=== PATIENT | female | born 1950 | race Caucasian/White ===

== ENCOUNTER 2017-07-02 16:47 | Emergency (ER) | payer MEDICARE ==
[2017-07-02] MEDS ORDERED: MOTRIN 600 MG PO ONE (17:19)
--- NOTE | 2017-07-02 17:30 | ERPHSYRPT ---
- History of Present Illness Time Seen by Provider: 07/02/17 17:04 Source: patient, family Patient Subjective Stated Complaint: Pt states "For the past week my leg has been getting worse and worse. It really hurts to stand and walk on it." Triage Nursing Assessment: Pt alert and oriented X 3, skin pwd able to stand with assistance, pt rt leg is larger than the left, pt has a crippled left leg. CSM X 4, pt able to speak in full setences. Physician History: CC: right leg pain Hx; 66 y/o patient of Dr Deneen Fry. She has pain in right leg for 2 weeks. Was worse with walking today so came to ER. No fever, chills, back pain, redness , rash. No injury. She has hx of crippled left leg. No chest pain. Hx of asthma. Lower Extremities Pain: leg: right Allergies/Adverse Reactions: acetaminophen [From Darvocet-N] Allergy (Mild, Verified 07/02/17 17:09) propoxyphene [From Darvocet-N] Allergy (Mild, Verified 07/02/17 17:09) sucralfate [From Carafate] Allergy (Mild, Verified 07/02/17 17:09) Home Medications: Alprazolam [Xanax 0.25 mg] 0.25 mg PO BID 07/02/17 [History] Aspirin 81 mg PO DAILY 07/02/17 [History] Dicyclomine HCl 10 mg PO TID 07/02/17 [History] Famotidine 40 mg PO BID 07/02/17 [History] Fenofibrate 40 mg PO DAILY 07/02/17 [History] Furosemide 20 mg [Lasix 20 mg] 20 mg PO DAILY 07/02/17 [History] Levomilnacipran HCl [Fetzima] 80 mg PO DAILY 07/02/17 [History] Metoclopramide HCl 10 mg [Reglan 10 MG] 10 mg PO BID 07/02/17 [History] Nebivolol HCl [Bystolic] 10 mg PO BID 07/02/17 [History] Piroxicam 20 mg PO DAILY 07/02/17 [History] Potassium Chloride 10 Meq Tab* [Klor Con 10 MEQ] 10 meq PO DAILY 07/02/17 [ History] Rosuvastatin Calcium 5 mg PO HS 07/02/17 [History] Vilazodone Hydrochloride [Viibryd] 40 mg PO DAILY 07/02/17 [History] Hx Tetanus, Diphtheria Vaccination/Date Given: Yes Hx Influenza Vaccination/Date Given: No Hx Pneumococcal Vaccination/Date Given: No Immunizations Up to Date: Yes - Review of Systems Constitutional: No Fever, No Chills Eyes: No Symptoms Ears, Nose, & Throat: No Symptoms Respiratory: No Cough, No Dyspnea Cardiac: No Chest Pain Abdominal/Gastrointestinal: No Abdominal Pain Musculoskeletal: No Back Pain, No Neck Pain, No Injury Skin: No Cellulitis, No Rash Neurological: No Focal Weakness All Other Systems: Reviewed and Negative - Past Medical History Pertinent Past Medical History: Yes Neurological History: No Pertinent History ENT History: No Pertinent History Cardiac History: Angina Respiratory History: COPD Endocrine Medical History: No Pertinent History Musculoskeletal History: Arthritis, Other GI Medical History: GERD History: No Pertinent History Psycho-Social History: Anxiety, Depression Female Reproductive Disorders: No Pertinent History Other Medical History: pt left leg partially crippled - Past Surgical History Past Surgical History: Yes Neuro Surgical History: No Pertinent History Cardiac: No Pertinent History Respiratory: No Pertinent History Gastrointestinal: Cholecystectomy Genitourinary: No Pertinent History Musculoskeletal: No Pertinent History Female Surgical History: No Pertinent History, Tubal Ligation Other Surgical History: back surgery - Social History Smoking Status: Current some day smoker How long have you smoked: years Exposure to second hand smoke: Yes Drug Use: none Patient Lives Alone: No - Female History Hx Last Menstrual Period: menopause - Nursing Vital Signs Nursing Vital Signs: Initial Vital Signs Temperature 98.1 F 07/02/17 16:56 Pulse Rate 68 07/02/17 16:56 Respiratory Rate 18 07/02/17 16:56 Blood Pressure 90/36 07/02/17 16:56 O2 Sat by Pulse Oximetry 94 L 07/02/17 16:56 Pain Scale Pain Intensity [Right Calf] 8 Pain Intensity 8 - Physical Exam General Appearance: alert, obese Neck Exam: normal inspection, non-tender, supple Cardiovascular/Respiratory Exam: normal breath sounds, regular rate/rhythm Gastrointestinal/Abdominal Exam: non-tender, soft Neuro/Tendon Exam: normal sensation, normal motor functions Mental Status Exam: alert, oriented x 3, cooperative Skin Exam: warm, dry, other (no redness), No rash SpO2 Interpretation: normal SpO2: 94 Oxygen Delivery: Room Air Comments: Diffuse tender right leg. Pulses good in DP and PT. No redness or rash. Some fullness anterior leg below knee. ROM intact. - Course Nursing assessment & vital signs reviewed: Yes - Radiology Exams right leg X-ray Interpretation: Reviewed by me (TRUPTI, no fx) - Radiology Ultrasound Exam right leg Ultrasound: Other (no DVT per tech) Ordered Tests: Active Orders 24 hr Category Date Time Status FEMUR Stat Exams 07/02/17 17:19 Taken KNEE (1 OR 2 VIEW) Stat Exams 07/02/17 17:19 Taken LOWER LEG Stat Exams 07/02/17 17:19 Taken VENOUS UNILAT/LIMITED EXTREMIT [US] Stat Exams 07/02/17 17:21 Taken Medication Summary Discontinued Medications Generic Name Dose Route Start Last Admin Trade Name Freq PRN Reason Stop Dose Admin Ibuprofen 600 mg 07/02/17 17:19 07/02/17 17:42 Motrin 600 Mg PO 07/02/17 17:20 600 mg STAT ONE Administration Ibuprofen Confirm 07/02/17 17:41 Motrin 600 Mg Administered 07/02/17 17:42 Dose 600 mg .ROUTE .STK-MED ONE Ibuprofen Confirm 07/02/17 17:50 Motrin 600 Mg Administered 07/02/17 17:51 Dose 600 mg .ROUTE .STK-MED ONE - Progress Progress Note: 07/02/17 19:08 Still some pain. No injury. Rx motrin/norco. Will get walker. Will follow up with Dr Deneen Fyr. Counseled pt/family regarding: diagnosis, need for follow-up, rad results - Departure Time of Disposition: 19:09 Departure Disposition: Home Clinical Impression: Right leg pain Condition: Stable Critical Care Time: No Referrals: MALINI FRY [Primary Care Provider] - Instructions: Leg Pain, Choose and Use a Walker Additional Instructions: Rx for a walker Rx norco for pain- no driving or operating machinery Rx ibuprofen Follow up Thursday with Dr Deneen Fry Prescriptions: Hydrocodone Bit/Acetaminophen [[place] 5-325 Tablet] 1 each PO Q6H PRN PRN #10 tablet PRN Reason: Pain Ibuprofen 600 mg PO Q6H PRN PRN #15 tablet PRN Reason: Pain
[2017-07-02] MEDS ORDERED: MOTRIN 600 MG ONE ×2 (17:41→17:50)
[2017-07-02 19:14] VITALS: BP 108/58; PULSE 78; O2SAT 95
--- NOTE | 2017-07-03 08:58 | XRAY ---
Indication: Right leg pain and swelling. Two-dimensional sonogram and color Doppler imaging of the major venous vessels of the right leg was performed. Comparison: March 26, 2010. Again no thrombus seen in the examined deep venous vessels of the right leg including greater saphenous vein. Veins demonstrate normal compressibility. Venous waveforms are normal with and without augmentation. Impression: Right leg again negative for DVT. Comment: Preliminary report was given.
--- NOTE | 2017-07-03 09:06 | XRAY ---
Indication: Pain. No known injury. Comparison: None 2 views of the right femur intact with mild tricompartmental knee degenerative changes and partially visualized right lower lumbar hardware. No other bony, articular, or soft tissue abnormalities.
--- NOTE | 2017-07-03 09:07 | XRAY ---
Indication: Pain. No known injury. Comparison: None 3 views of the right knee intact with mild tricompartmental knee degenerative changes greatest involving the medial compartment, small nonspecific suprapatellar effusion, and anterior knee/lower leg heterotopic ossifications. No other bony, articular, or soft tissue abnormalities.
--- NOTE | 2017-07-03 09:09 | XRAY ---
Indication: Pain. No known injury. Comparison: None 2 views of the right lower leg intact with mild tricompartmental knee degenerative changes and tiny anterior soft tissue calcified granulomas. No other bony, articular, or soft tissue abnormalities.
== END 2017-07-02 19:22 | disposition home or self-care (01) ==
LOC: ED 16:47
DX: M79.604 Pain in right leg (principal); Z87.76 Personal history of (corrected) congenital malformations of integument, limbs and musculoskeletal system
CPT/HCPCS: 73552; 73560; 73590; 93971; 99284; A9270-GY

== ENCOUNTER 2021-06-16 21:21 | Inpatient (IN) | payer MEDICARE ==
--- NOTE | 2021-06-16 21:30 | ERPHSYRPT ---
- History of Present Illness Time Seen by Provider: 06/16/21 21:30 Source: patient, EMS, old records Exam Limitations: clinical condition Physician History: This is a 70-year-old obese white female with a history of hypertension, COPD and gastroesophageal reflux disease presents with altered mental status via EMS. Patient was recently diagnosed with bronchitis per EMS report. EMS reports that the patient had relatively sudden onset of altered mental status at home. No new medications per their report. Patient presents moving all her extremities but not able to follow commands or answer questions. There is no history of any head injury. She does have a fever of 100.7 on arrival to the emergency room. Timing/Duration: today Severity: moderate Character of Deficits: other (Altered mental status) Deficits: cannot stand, cannot walk, unable to stand Baseline/Normal Cognition: alert oriented x 3 Current Cognition: alert but confused Baseline Gait: walks w/o assistance Associated Symptoms: confusion, other (Does not respond to questioning) Allergies/Adverse Reactions: acetaminophen [From Darvocet-N] Allergy (Mild, Verified 07/02/17 17:09) propoxyphene [From Darvocet-N] Allergy (Mild, Verified 07/02/17 17:09) sucralfate [From Carafate] Allergy (Mild, Verified 07/02/17 17:09) Home Medications: ALPRAZolam [Xanax 0.25 mg] 0.25 mg PO BID 07/02/17 [History] Aspirin 81 mg PO DAILY 07/02/17 [History] Dicyclomine HCl 10 mg PO TID 07/02/17 [History] Famotidine 40 mg PO BID 07/02/17 [History] Fenofibrate 40 mg PO DAILY 07/02/17 [History] Furosemide 20 mg [Lasix 20 mg] 20 mg PO DAILY 07/02/17 [History] Levomilnacipran HCl [Fetzima] 80 mg PO DAILY 07/02/17 [History] Metoclopramide HCl 10 mg [Reglan 10 MG] 10 mg PO BID 07/02/17 [History] Nebivolol HCl [Bystolic] 10 mg PO BID 07/02/17 [History] Piroxicam 20 mg PO DAILY 07/02/17 [History] Potassium Chloride 10 Meq Tab* [Klor Con 10 MEQ] 10 meq PO DAILY 07/02/17 [History] Rosuvastatin Calcium 5 mg PO HS 07/02/17 [History] Vilazodone Hydrochloride [Viibryd] 40 mg PO DAILY 07/02/17 [History] Hx Tetanus, Diphtheria Vaccination/Date Given: Yes Hx Influenza Vaccination/Date Given: No Hx Pneumococcal Vaccination/Date Given: No Travel Risk - International Travel Have you traveled outside of the country in past 3 weeks: No - Coronavirus Screening Are you exhibiting any of the following symptoms?: Yes - Review of Systems Constitutional: No Symptoms Eyes: No Symptoms Ears, Nose, & Throat: No Symptoms Respiratory: No Symptoms Cardiac: No Symptoms Abdominal/Gastrointestinal: No Symptoms Genitourinary Symptoms: No Symptoms Musculoskeletal: No Symptoms Skin: No Symptoms Neurological: Other (Altered mental status) Psychological: No Symptoms Endocrine: No Symptoms Hematologic/Lymphatic: No Symptoms Immunological/Allergic: No Symptoms All Other Systems: Reviewed and Negative - Past Medical History Pertinent Past Medical History: Yes Neurological History: No Pertinent History ENT History: No Pertinent History Cardiac History: Angina Respiratory History: COPD Endocrine Medical History: No Pertinent History Musculoskeletal History: Arthritis, Other GI Medical History: GERD History: No Pertinent History Psycho-Social History: Anxiety, Depression Female Reproductive Disorders: No Pertinent History Other Medical History: pt left leg partially crippled - Past Surgical History Past Surgical History: Yes Neuro Surgical History: No Pertinent History Cardiac: No Pertinent History Respiratory: No Pertinent History Gastrointestinal: Cholecystectomy Genitourinary: No Pertinent History Musculoskeletal: No Pertinent History Female Surgical History: No Pertinent History, Tubal Ligation Other Surgical History: back surgery - Social History Smoking Status: Current some day smoker How long have you smoked: years Exposure to second hand smoke: Yes Drug Use: none Patient Lives Alone: No - Nursing Vital Signs Nursing Vital Signs: Initial Vital Signs Temperature 100.9 F 06/16/21 21:23 Pulse Rate 79 06/16/21 21:23 Respiratory Rate 20 06/16/21 21:23 Blood Pressure 151/70 06/16/21 21:23 O2 Sat by Pulse Oximetry 98 06/16/21 21:23 Pain Scale Pain Intensity 0 - Chris Coma Scale Best Eye Response ([place]): (4) open spontaneously Best Verbal Response ([place]): (1) no verbal response Best Motor Response ([place]): (5) localizes to pain [place] Total: 10 - Physical Exam General Appearance: lethargy, obese Eye Exam: bilateral eye: normal inspection, PERRL, EOMI Ears, Nose, Throat Exam: normal ENT inspection, moist mucous membranes Neck Exam: normal inspection, non-tender, supple, full range of motion Respiratory: normal breath sounds, lungs clear, airway intact, No chest tenderness, No respiratory distress Cardiovascular: regular rate/rhythm, normal heart sounds, normal peripheral pulses Gastrointestinal: soft, normal bowel sounds, No tenderness Pelvic Exam: not done Rectal Exam: not done Back Exam: normal inspection, normal range of motion, No CVA tenderness, No vertebral tenderness Extremity Exam: normal inspection, normal range of motion, pelvis stable 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 Today's EKG shows some anterior Q waves possibly due to left ventricular hypertrophy. There are no obvious acute ischemic changes today.) Ordered Tests: Active Orders 24 hr Category Date Time Status Metal [place] STAT Care 06/16/21 21:44 Active Catheter-Winf[place] Jung STAT Care 06/16/21 21:43 Active EKG-ER Only STAT Care 06/16/21 21:43 Active IV Insertion STAT Care 06/16/21 21:43 Active NPO (ED) STAT Care 06/16/21 21:44 Active Pulse Oximetry (ED) STAT Care 06/16/21 21:43 Active CHEST 1 VIEW (PORTABLE) Stat Exams 06/16/21 21:44 Taken HEAD WITHOUT CONTRAST [CT] Stat Exams 06/16/21 21:44 Taken ABG [ARTERIAL BLOOD GASES] Stat Lab 06/17/21 00:44 Completed ACETAMINOPHEN Stat Lab 06/16/21 22:08 Completed CBC W DIFF Stat Lab 06/16/21 22:23 Completed CMP Stat Lab 06/16/21 22:23 Completed ETHYL ALCOHOL Stat Lab 06/16/21 22:08 Completed INFLUENZA A+B ANNALISE Stat Lab 06/16/21 21:45 Completed Lactic Acid Stat Lab 06/16/21 21:45 Completed Lee Screen Stat Lab 06/16/21 20:50 Completed SALICYLATE Stat Lab 06/16/21 22:08 Completed T4 (Thyroxine) Stat Lab 06/16/21 22:00 Completed TROPONIN Q3H Lab 06/16/21 23:00 Completed TROPONIN Q3H Lab 06/17/21 01:00 Completed TROPONIN Q3H Lab 06/17/21 04:00 Ordered TROPONIN Q3H Lab 06/17/21 07:00 Ordered TROPONIN Q3H Lab 06/17/21 10:00 Ordered TSH [TSH, 3RD Generation] Stat Lab 06/16/21 22:00 Completed UA W/RFX UR CULTURE Stat Lab 06/16/21 21:51 Completed Urine Triage Profile Stat Lab 06/16/21 23:24 Completed Transfer Order Routine Transfer 06/17/21 Ordered Medication Summary Generic Name Dose Route Start Last Admin Trade Name Freq PRN Reason Stop Dose Admin Sodium Chloride 1,000 mls @ 999 mls/hr 06/17/21 01:23 Sodium Chloride 0.9% 1000 Ml IV 06/17/21 02:23 .Q1H1M STA Discontinued Medications Generic Name Dose Route Start Last Admin Trade Name Freq PRN Reason Stop Dose Admin Sodium Chloride 1,000 mls @ 999 mls/hr 06/16/21 21:43 06/16/21 22:57 Sodium Chloride 0.9% 1000 Ml IV 06/16/21 22:43 Infused .Q1H1M STA Infusion Sodium Chloride Confirm 06/16/21 21:53 Sodium Chloride 0.9% 1000 Ml Administered 06/16/21 21:54 Dose 1,000 mls @ ud .ROUTE .STK-MED ONE Lorazepam 1 mg 06/16/21 22:20 06/16/21 22:22 Ativan 2 Mg/1 Ml Vial IV 06/16/21 22:21 1 mg STAT ONE Administration Lorazepam Confirm 06/16/21 22:22 Ativan 2 Mg/1 Ml Vial Administered 06/16/21 22:23 Dose 2 mg .ROUTE .STK-MED ONE Midazolam HCl 2 mg 06/16/21 23:27 06/16/21 23:55 Versed 2 Mg/2 Ml Injection IV 06/16/21 23:28 2 mg 1XONLY ONE Administration Midazolam HCl Confirm 06/16/21 23:36 Versed 5 Mg/5 Ml Administered 06/16/21 23:37 Dose 5 mg .ROUTE .STK-MED ONE Midazolam HCl 2 mg 06/17/21 00:01 06/17/21 00:18 Versed 5 Mg/5 Ml IV 06/17/21 00:02 2 mg STAT ONE Administration Midazolam HCl Confirm 06/17/21 00:01 Versed 5 Mg/5 Ml Administered 06/17/21 00:02 Dose 5 mg .ROUTE .STK-MED ONE Midazolam HCl 1 mg 06/17/21 00:25 06/17/21 00:06 Versed 5 Mg/5 Ml IV 06/17/21 00:26 1 mg STAT ONE Administration Ondansetron HCl 4 mg 06/16/21 21:43 06/16/21 21:56 Zofran 4 Mg/2 Ml Vial IV 06/16/21 21:44 4 mg STAT STA Administration Ondansetron HCl Confirm 06/16/21 21:53 Zofran 4 Mg/2 Ml Vial Administered 06/16/21 21:54 Dose 4 mg .ROUTE .STK-MED ONE Lab/Rad Data: Laboratory Result Diagrams 06/16/21 22:23 06/16/21 22:23 Laboratory Results 06/17/21 06/17/21 06/16/21 Range/Units 01:00 00:44 23:24 WBC (4.0-10.5) K/mm3 RBC (4.1-5.4) M/mm3 Hgb (12.0-16.0) gm/dl Hct (35-47) % MCV (78-100) fl MCH (26-32) pg MCHC (32-36) g/dl RDW (11.5-14.0) % Plt Count (150-450) K/mm3 MPV (7.5-11.0) fl Gran % (36.0-66.0) % Eos # (Auto) (0-0.5) Absolute Lymphs (auto) (1.0-4.6) Absolute Monos (auto) (0.0-1.3) Lymphocytes % (24.0-44.0) % Monocytes % (0.0-12.0) % Eosinophils % (0.00-5.0) % Basophils % (0.0-0.4) % Absolute Granulocytes (1.4-6.9) Basophils # (0-0.4) Puncture Site LEFT BRACHIAL pCO2 38 (35-45) mmHg pO2 78 (75-100) mmHg Base Excess -0.3 (-2.0-2.0) O2 Saturation 95.3 (94-100) g/dF ABG pH 7.41 (7.35-7.45) ABG HCO3 24.1 (22-28) ABG O2 Sat (Measured) 97.2 (95-100) % Dontrell Test NOT APPLICABLE A-a Gradient 24 a/A Ratio 0.76 Hemoglobin 12.7 Carboxyhemoglobin 1.3 (0.0-6.9) % THgb Methemoglobin 0.7 L (1.4-1.5) % Temperature 37.0 C POC O2 Flow Rate 32 % Sodium (137-145) mmol/L Potassium 3.7 (3.5-5.1) mmol/L Chloride (98-107) mmol/L Carbon Dioxide (22-30) mmol/L Anion Gap (5-15) MEQ/L BUN (7-17) mg/dL Creatinine (0.52-1.04) mg/dL Estimated GFR ML/MIN Glucose (74-106) mg/dL Lactic Acid (0.4-2.0) Calcium (8.4-10.2) mg/dL Total Bilirubin (0.2-1.3) mg/dL AST (14-36) U/L ALT (0-35) U/L Alkaline Phosphatase (38-126) U/L Ammonia (9-30) umol/L Troponin I < 0.012 (0.000-0.034) ng/mL Serum Total Protein (6.3-8.2) g/dL Albumin (3.5-5.0) g/dL Thyroxine (T4) (5.53-10.96) ug/dL TSH 3rd Generation (0.47-4.68) mIU/L Urine Color (YELLOW) Urine Appearance (CLEAR) Urine pH (5-6) Ur Specific [place] (1.005-1.025) Urine Protein (Negative) Urine Ketones (NEGATIVE) Urine Blood (0-5) Mina/ul Urine Nitrite (NEGATIVE) Urine Bilirubin (NEGATIVE) Urine Urobilinogen (0-1) mg/dL Ur Leukocyte Esterase (NEGATIVE) Urine WBC (Auto) (0-5) /HPF Urine RBC (Auto) (0-2) /HPF U Hyaline Cast (Auto) (0-2) /LPF U Epithel Cells (Auto) (FEW) /HPF Urine Bacteria (Auto) (NEGATIVE) /HPF Urine Mucus (Auto) (NEGATIVE) /HPF Urine Culture Reflexed (NO) Urine Glucose (NEGATIVE) mg/dL Salicylates (2-20) mg/dL Urine Opiates Level NEGATIVE (NEGATIVE) Ur Methadone NEGATIVE (NEGATIVE) Acetaminophen (10-30) ug/ml Urine Barbiturates NEGATIVE (NEGATIVE) Ur Phencyclidine (PCP) NEGATIVE (NEGATIVE) Urine Amphetamine NEGATIVE (NEGATIVE) U Benzodiazepine Level NEGATIVE (NEGATIVE) Urine Cocaine NEGATIVE (NEGATIVE) Urine Marijuana (THC) NEGATIVE (NEGATIVE) Ethyl Alcohol (0-10) mg/dL Monoscreen (Negative) Influenza Type A Ag (NEGATIVE) Influenza Type B Ag (NEGATIVE) Group A Strep Antibody (NEGATIVE) 06/16/21 06/16/21 06/16/21 Range/Units 23:00 22:23 22:23 WBC 8.0 (4.0-10.5) K/mm3 RBC 4.37 (4.1-5.4) M/mm3 Hgb 13.9 (12.0-16.0) gm/dl Hct 42.4 (35-47) % MCV 97.0 (78-100) fl MCH 31.8 (26-32) pg MCHC 32.8 (32-36) g/dl RDW 13.2 (11.5-14.0) % Plt Count 191 (150-450) K/mm3 MPV 10.2 (7.5-11.0) fl Gran % 83.0 H (36.0-66.0) % Eos # (Auto) 0 (0-0.5) Absolute Lymphs (auto) 0.89 L (1.0-4.6) Absolute Monos (auto) 0.47 (0.0-1.3) Lymphocytes % 11.1 L (24.0-44.0) % Monocytes % 5.8 (0.0-12.0) % Eosinophils % 0.0 (0.00-5.0) % Basophils % 0.1 (0.0-0.4) % Absolute Granulocytes 6.67 (1.4-6.9) Basophils # 0.01 (0-0.4) Puncture Site pCO2 (35-45) mmHg pO2 (75-100) mmHg Base Excess (-2.0-2.0) O2 Saturation (94-100) g/dF ABG pH (7.35-7.45) ABG HCO3 (22-28) ABG O2 Sat (Measured) (95-100) % Dontrell Test A-a Gradient a/A Ratio Hemoglobin Carboxyhemoglobin (0.0-6.9) % THgb Methemoglobin (1.4-1.5) % Temperature C POC O2 Flow Rate % Sodium 138 (137-145) mmol/L Potassium 3.8 (3.5-5.1) mmol/L Chloride 100 (98-107) mmol/L Carbon Dioxide 24 (22-30) mmol/L Anion Gap 17.3 H (5-15) MEQ/L BUN 23 H (7-17) mg/dL Creatinine 0.85 (0.52-1.04) mg/dL Estimated GFR > 60.0 ML/MIN Glucose 106 (74-106) mg/dL Lactic Acid (0.4-2.0) Calcium 8.9 (8.4-10.2) mg/dL Total Bilirubin 0.50 (0.2-1.3) mg/dL AST 40 H (14-36) U/L ALT 25 (0-35) U/L Alkaline Phosphatase 69 (38-126) U/L Ammonia (9-30) umol/L Troponin I < 0.012 (0.000-0.034) ng/mL Serum Total Protein 7.7 (6.3-8.2) g/dL Albumin 4.0 (3.5-5.0) g/dL Thyroxine (T4) (5.53-10.96) ug/dL TSH 3rd Generation (0.47-4.68) mIU/L Urine Color (YELLOW) Urine Appearance (CLEAR) Urine pH (5-6) Ur Specific [place] (1.005-1.025) Urine Protein (Negative) Urine Ketones (NEGATIVE) Urine Blood (0-5) Mina/ul Urine Nitrite (NEGATIVE) Urine Bilirubin (NEGATIVE) Urine Urobilinogen (0-1) mg/dL Ur Leukocyte Esterase (NEGATIVE) Urine WBC (Auto) (0-5) /HPF Urine RBC (Auto) (0-2) /HPF U Hyaline Cast (Auto) (0-2) /LPF U Epithel Cells (Auto) (FEW) /HPF Urine Bacteria (Auto) (NEGATIVE) /HPF Urine Mucus (Auto) (NEGATIVE) /HPF Urine Culture Reflexed (NO) Urine Glucose (NEGATIVE) mg/dL Salicylates (2-20) mg/dL Urine Opiates Level (NEGATIVE) Ur Methadone (NEGATIVE) Acetaminophen (10-30) ug/ml Urine Barbiturates (NEGATIVE) Ur Phencyclidine (PCP) (NEGATIVE) Urine Amphetamine (NEGATIVE) U Benzodiazepine Level (NEGATIVE) Urine Cocaine (NEGATIVE) Urine Marijuana (THC) (NEGATIVE) Ethyl Alcohol (0-10) mg/dL Monoscreen (Negative) Influenza Type A Ag (NEGATIVE) Influenza Type B Ag (NEGATIVE) Group A Strep Antibody (NEGATIVE) 06/16/21 06/16/21 06/16/21 Range/Units 22:08 22:00 22:00 WBC (4.0-10.5) K/mm3 RBC (4.1-5.4) M/mm3 Hgb (12.0-16.0) gm/dl Hct (35-47) % MCV (78-100) fl MCH (26-32) pg MCHC (32-36) g/dl RDW (11.5-14.0) % Plt Count (150-450) K/mm3 MPV (7.5-11.0) fl Gran % (36.0-66.0) % Eos # (Auto) (0-0.5) Absolute Lymphs (auto) (1.0-4.6) Absolute Monos (auto) (0.0-1.3) Lymphocytes % (24.0-44.0) % Monocytes % (0.0-12.0) % Eosinophils % (0.00-5.0) % Basophils % (0.0-0.4) % Absolute Granulocytes (1.4-6.9) Basophils # (0-0.4) Puncture Site pCO2 (35-45) mmHg pO2 (75-100) mmHg Base Excess (-2.0-2.0) O2 Saturation (94-100) g/dF ABG pH (7.35-7.45) ABG HCO3 (22-28) ABG O2 Sat (Measured) (95-100) % Dontrell Test A-a Gradient a/A Ratio Hemoglobin Carboxyhemoglobin (0.0-6.9) % THgb Methemoglobin (1.4-1.5) % Temperature C POC O2 Flow Rate % Sodium (137-145) mmol/L Potassium (3.5-5.1) mmol/L Chloride (98-107) mmol/L Carbon Dioxide (22-30) mmol/L Anion Gap (5-15) MEQ/L BUN (7-17) mg/dL Creatinine (0.52-1.04) mg/dL Estimated GFR ML/MIN Glucose (74-106) mg/dL Lactic Acid (0.4-2.0) Calcium (8.4-10.2) mg/dL Total Bilirubin (0.2-1.3) mg/dL AST (14-36) U/L ALT (0-35) U/L Alkaline Phosphatase (38-126) U/L Ammonia (9-30) umol/L Troponin I (0.000-0.034) ng/mL Serum Total Protein (6.3-8.2) g/dL Albumin (3.5-5.0) g/dL Thyroxine (T4) 7.66 (5.53-10.96) ug/dL TSH 3rd Generation 3.280 (0.47-4.68) mIU/L Urine Color (YELLOW) Urine Appearance (CLEAR) Urine pH (5-6) Ur Specific [place] (1.005-1.025) Urine Protein (Negative) Urine Ketones (NEGATIVE) Urine Blood (0-5) Mina/ul Urine Nitrite (NEGATIVE) Urine Bilirubin (NEGATIVE) Urine Urobilinogen (0-1) mg/dL Ur Leukocyte Esterase (NEGATIVE) Urine WBC (Auto) (0-5) /HPF Urine RBC (Auto) (0-2) /HPF U Hyaline Cast (Auto) (0-2) /LPF U Epithel Cells (Auto) (FEW) /HPF Urine Bacteria (Auto) (NEGATIVE) /HPF Urine Mucus (Auto) (NEGATIVE) /HPF Urine Culture Reflexed (NO) Urine Glucose (NEGATIVE) mg/dL Salicylates < 1.0 L (2-20) mg/dL Urine Opiates Level (NEGATIVE) Ur Methadone (NEGATIVE) Acetaminophen < 10 L (10-30) ug/ml Urine Barbiturates (NEGATIVE) Ur Phencyclidine (PCP) (NEGATIVE) Urine Amphetamine (NEGATIVE) U Benzodiazepine Level (NEGATIVE) Urine Cocaine (NEGATIVE) Urine Marijuana (THC) (NEGATIVE) Ethyl Alcohol < 10 (0-10) mg/dL Monoscreen (Negative) Influenza Type A Ag (NEGATIVE) Influenza Type B Ag (NEGATIVE) Group A Strep Antibody (NEGATIVE) 06/16/21 06/16/21 06/16/21 Range/Units 21:51 21:45 21:45 WBC (4.0-10.5) K/mm3 RBC (4.1-5.4) M/mm3 Hgb (12.0-16.0) gm/dl Hct (35-47) % MCV (78-100) fl MCH (26-32) pg MCHC (32-36) g/dl RDW (11.5-14.0) % Plt Count (150-450) K/mm3 MPV (7.5-11.0) fl Gran % (36.0-66.0) % Eos # (Auto) (0-0.5) Absolute Lymphs (auto) (1.0-4.6) Absolute Monos (auto) (0.0-1.3) Lymphocytes % (24.0-44.0) % Monocytes % (0.0-12.0) % Eosinophils % (0.00-5.0) % Basophils % (0.0-0.4) % Absolute Granulocytes (1.4-6.9) Basophils # (0-0.4) Puncture Site pCO2 (35-45) mmHg pO2 (75-100) mmHg Base Excess (-2.0-2.0) O2 Saturation (94-100) g/dF ABG pH (7.35-7.45) ABG HCO3 (22-28) ABG O2 Sat (Measured) (95-100) % Dontrell Test A-a Gradient a/A Ratio Hemoglobin Carboxyhemoglobin (0.0-6.9) % THgb Methemoglobin (1.4-1.5) % Temperature C POC O2 Flow Rate % Sodium (137-145) mmol/L Potassium (3.5-5.1) mmol/L Chloride (98-107) mmol/L Carbon Dioxide (22-30) mmol/L Anion Gap (5-15) MEQ/L BUN (7-17) mg/dL Creatinine (0.52-1.04) mg/dL Estimated GFR ML/MIN Glucose (74-106) mg/dL Lactic Acid 1.7 (0.4-2.0) Calcium (8.4-10.2) mg/dL Total Bilirubin (0.2-1.3) mg/dL AST (14-36) U/L ALT (0-35) U/L Alkaline Phosphatase (38-126) U/L Ammonia (9-30) umol/L Troponin I (0.000-0.034) ng/mL Serum Total Protein (6.3-8.2) g/dL Albumin (3.5-5.0) g/dL Thyroxine (T4) (5.53-10.96) ug/dL TSH 3rd Generation (0.47-4.68) mIU/L Urine Color YELLOW (YELLOW) Urine Appearance CLEAR (CLEAR) Urine pH 5.0 (5-6) Ur Specific [place] 1.016 (1.005-1.025) Urine Protein NEGATIVE (Negative) Urine Ketones NEGATIVE (NEGATIVE) Urine Blood NEGATIVE (0-5) Mina/ul Urine Nitrite NEGATIVE (NEGATIVE) Urine Bilirubin NEGATIVE (NEGATIVE) Urine Urobilinogen NEGATIVE (0-1) mg/dL Ur Leukocyte Esterase NEGATIVE (NEGATIVE) Urine WBC (Auto) NONE (0-5) /HPF Urine RBC (Auto) NONE (0-2) /HPF U Hyaline Cast (Auto) 0-2 (0-2) /LPF U Epithel Cells (Auto) NONE (FEW) /HPF Urine Bacteria (Auto) NONE (NEGATIVE) /HPF Urine Mucus (Auto) SLIGHT (NEGATIVE) /HPF Urine Culture Reflexed NO (NO) Urine Glucose NEGATIVE (NEGATIVE) mg/dL Salicylates (2-20) mg/dL Urine Opiates Level (NEGATIVE) Ur Methadone (NEGATIVE) Acetaminophen (10-30) ug/ml Urine Barbiturates (NEGATIVE) Ur Phencyclidine (PCP) (NEGATIVE) Urine Amphetamine (NEGATIVE) U Benzodiazepine Level (NEGATIVE) Urine Cocaine (NEGATIVE) Urine Marijuana (THC) (NEGATIVE) Ethyl Alcohol (0-10) mg/dL Monoscreen (Negative) Influenza Type A Ag NEGATIVE (NEGATIVE) Influenza Type B Ag POSITIVE (NEGATIVE) Group A Strep Antibody (NEGATIVE) 06/16/21 06/16/21 06/16/21 Range/Units 20:50 00:20 00:20 WBC (4.0-10.5) K/mm3 RBC (4.1-5.4) M/mm3 Hgb (12.0-16.0) gm/dl Hct (35-47) % MCV (78-100) fl MCH (26-32) pg MCHC (32-36) g/dl RDW (11.5-14.0) % Plt Count (150-450) K/mm3 MPV (7.5-11.0) fl Gran % (36.0-66.0) % Eos # (Auto) (0-0.5) Absolute Lymphs (auto) (1.0-4.6) Absolute Monos (auto) (0.0-1.3) Lymphocytes % (24.0-44.0) % Monocytes % (0.0-12.0) % Eosinophils % (0.00-5.0) % Basophils % (0.0-0.4) % Absolute Granulocytes (1.4-6.9) Basophils # (0-0.4) Puncture Site pCO2 (35-45) mmHg pO2 (75-100) mmHg Base Excess (-2.0-2.0) O2 Saturation (94-100) g/dF ABG pH (7.35-7.45) ABG HCO3 (22-28) ABG O2 Sat (Measured) (95-100) % Dontrell Test A-a Gradient a/A Ratio Hemoglobin Carboxyhemoglobin (0.0-6.9) % THgb Methemoglobin (1.4-1.5) % Temperature C POC O2 Flow Rate % Sodium (137-145) mmol/L Potassium (3.5-5.1) mmol/L Chloride (98-107) mmol/L Carbon Dioxide (22-30) mmol/L Anion Gap (5-15) MEQ/L BUN (7-17) mg/dL Creatinine (0.52-1.04) mg/dL Estimated GFR ML/MIN Glucose (74-106) mg/dL Lactic Acid (0.4-2.0) Calcium (8.4-10.2) mg/dL Total Bilirubin (0.2-1.3) mg/dL AST (14-36) U/L ALT (0-35) U/L Alkaline Phosphatase (38-126) U/L Ammonia < 9 L (9-30) umol/L Troponin I (0.000-0.034) ng/mL Serum Total Protein (6.3-8.2) g/dL Albumin (3.5-5.0) g/dL Thyroxine (T4) (5.53-10.96) ug/dL TSH 3rd Generation (0.47-4.68) mIU/L Urine Color (YELLOW) Urine Appearance (CLEAR) Urine pH (5-6) Ur Specific Merrill (1.005-1.025) Urine Protein (Negative) Urine Ketones (NEGATIVE) Urine Blood (0-5) Mina/ul Urine Nitrite (NEGATIVE) Urine Bilirubin (NEGATIVE) Urine Urobilinogen (0-1) mg/dL Ur Leukocyte Esterase (NEGATIVE) Urine WBC (Auto) (0-5) /HPF Urine RBC (Auto) (0-2) /HPF U Hyaline Cast (Auto) (0-2) /LPF U Epithel Cells (Auto) (FEW) /HPF Urine Bacteria (Auto) (NEGATIVE) /HPF Urine Mucus (Auto) (NEGATIVE) /HPF Urine Culture Reflexed (NO) Urine Glucose (NEGATIVE) mg/dL Salicylates (2-20) mg/dL Urine Opiates Level (NEGATIVE) Ur Methadone (NEGATIVE) Acetaminophen (10-30) ug/ml Urine Barbiturates (NEGATIVE) Ur Phencyclidine (PCP) (NEGATIVE) Urine Amphetamine (NEGATIVE) U Benzodiazepine Level (NEGATIVE) Urine Cocaine (NEGATIVE) Urine Marijuana (THC) (NEGATIVE) Ethyl Alcohol (0-10) mg/dL Monoscreen NEGATIVE (Negative) Influenza Type A Ag (NEGATIVE) Influenza Type B Ag (NEGATIVE) Group A Strep Antibody NOT DETECTED (NEGATIVE) - Progress Progress: improved, re-examined Progress Note: 06/17/21 00:32 ct head without contrast shows no acute intracranial abnormality. 06/17/21 01:18 Chest x-ray reveals? Right perihilar infiltrate. Medical decision making: The patient's confusion and altered mental status has been persistent. Her exam is nonfocal neurologically. CAT scan of her head without contrast shows no acute intracranial abnormality. She does not appear to be septic although she does have a low-grade fever. She has a positive influenza B infection. I spoke with Dr. Emerson she agrees with admitting this patient. We will check a rapid Covid test. At this time, patient is hemodynamically stable. She is still not answering questions or following directions. The cause of her altered mental status is unknown. Discussed with : Kraig Counseled pt/family regarding: lab results, diagnosis, need for follow-up, rad results - Departure Departure Disposition: In-patient Admission Clinical Impression: Altered mental status, Fever, Influenza B Condition: Fair Critical Care Time: Yes Critical Care Time(excluding separately billable procedures): Critical 30-74 mins Referrals: MALINI FRY [Primary Care Provider] -
[2021-06-16] MEDS ORDERED: Zofran 4 MG/2 ML VIAL IV STA (21:43)
[2021-06-16] MEDS ORDERED: Sodium Chloride 0.9% 1000 ML 1,000 ML IV STA (21:43)
[2021-06-16] MEDS ORDERED: Sodium Chloride 0.9% 1000 ML 1,000 ML ONE (21:53)
[2021-06-16] MEDS ORDERED: Zofran 4 MG/2 ML VIAL ONE (21:53)
[2021-06-16] MEDS ORDERED: Ativan 2 MG/1 ML VIAL IV ONE (22:20)
[2021-06-16 22:22] LABS: Absolute Neutrophil Ct (ANC) 6.67 (1.4-6.9); BASOPHIL % 0.1 % (0.0-0.4); Basophil (Absolute #) 0.01 (0-0.4); Eosinophil (Absolute #) 0 (0-0.5); Hematocrit 42.4 % (35-47); Hemoglobin 13.9 gm/dl (12.0-16.0); Lymphocyte (Absolute #) 0.89 (1.0-4.6); Lymphocytes % 11.1 % (24.0-44.0); Mean Corpuscular Hemoglobin 31.8 pg (26-32); Mean Corpuscular Hgb Concent. 32.8 g/dl (32-36); Mean Platelet Volume 10.2 fl (7.5-11.0); Monocyte (Absolute #) 0.47 (0.0-1.3); Monocytes % 5.8 % (0.0-12.0); Platelet Count 191 K/mm3 (150-450); Red Blood Count 4.37 M/mm3 (4.1-5.4); Red Cell Distribution Width 13.2 % (11.5-14.0)
[2021-06-16] MEDS ORDERED: Ativan 2 MG/1 ML VIAL ONE (22:22)
[2021-06-16 22:45] LABS: ALKALINE PHOSPHATASE 69 U/L (38-126); ANION GAP 17.3 MEQ/L (5-15); BLOOD UREA NITROGEN 23 mg/dL (7-17); CHLORIDE 100 mmol/L (98-107); Calcium 8.9 mg/dL (8.4-10.2); Carbon Dioxide 24 mmol/L (22-30); Creatinine 1 0.85 mg/dL (0.52-1.04); EST GLOMERULAR FILTRATION RATE > 60.0 ML/MIN; Glucose 106 mg/dL (74-106); Potassium 3.8 mmol/L (3.5-5.1); SGOT/AST 40 U/L (14-36); SGPT/ALT 25 U/L (0-35); SODIUM 138 mmol/L (137-145); Total Protein 7.7 g/dL (6.3-8.2)
[2021-06-16 22:45] LABS: INFLUENZA A NEGATIVE (NEGATIVE)
[2021-06-16 22:46] LABS: INFLUENZA B POSITIVE (NEGATIVE)
[2021-06-16] MEDS ORDERED: Versed 2 MG/2 ML Injection IV ONE (23:27)
[2021-06-16] MEDS ORDERED: VERSED 5 MG/5 ML ONE (23:36)
[2021-06-16 23:49] LABS: ACETAMINOPHEN < 10 ug/ml (10-30); ETHYL ALCOHOL < 10 mg/dL (0-10); SALICYLATE < 1.0 mg/dL (2-20)
[2021-06-17] MEDS ORDERED: VERSED 5 MG/5 ML ONE (00:01)
[2021-06-17] MEDS: VERSED 5 MG/5 ML IV ONE ×2 (00:02→00:18)
[2021-06-17] MEDS ORDERED: VERSED 5 MG/5 ML IV ONE (00:25)
[2021-06-17 00:49] LABS: Amphetamine,Urine NEGATIVE (NEGATIVE); Barbiturate,Urine NEGATIVE (NEGATIVE); Benzodiazepine,Urine NEGATIVE (NEGATIVE); Cocaine,Urine NEGATIVE (NEGATIVE); Methadone,Urine NEGATIVE (NEGATIVE); Opiate,Urine NEGATIVE (NEGATIVE); PCP,Urine NEGATIVE (NEGATIVE); THC,Urine NEGATIVE (NEGATIVE)
[2021-06-17 00:59] LABS: A-aADO2 24; ABG HEMOGLOBIN 12.7; ABG POTASSIUM 3.7 (3.5-5.1); ABG SITE LEFT BRACHIAL; ARTERIAL BLD GAS O2 SATURATION 97.2 % (95-100); ARTERIAL BLOOD GAS BASE EXCESS -0.3 (-2.0-2.0); ARTERIAL BLOOD GAS FIO2 32 %; ARTERIAL BLOOD GAS PCO2 38 mmHg (35-45); ARTERIAL BLOOD GAS PO2 78 mmHg (75-100); ARTERIAL BLOOD GAS pH 7.41 (7.35-7.45); CARBOXYHEMOGLOBIN 1.3 % THgb (0.0-6.9); HCO3- 24.1 (22-28); HGB O2 SAT 95.3 g/dF (94-100); Methhemoglobin 0.7 % (1.4-1.5)
[2021-06-17 01:04] LABS: Appearance CLEAR (CLEAR); Bilirubin NEGATIVE (NEGATIVE); Blood NEGATIVE Ery/ul (0-5); Glucose NEGATIVE (NEGATIVE); Hyaline Casts 0-2 /LPF (0-2); Ketones NEGATIVE (NEGATIVE); Leukocyte Esterase NEGATIVE (NEGATIVE); Mucus SLIGHT /HPF (NEGATIVE); Nitrite NEGATIVE (NEGATIVE); Protein,Urine Dip NEGATIVE (Negative); Specific Gravity 1.016 (1.005-1.025); Urobilinogen NEGATIVE mg/dL (0-1)
[2021-06-17] MEDS ORDERED: Sodium Chloride 0.9% 1000 ML 1,000 ML IV STA (01:23)
[2021-06-17] MEDS ORDERED: Sodium Chloride 0.9% 1000 ML 1,000 ML ONE (01:49)
[2021-06-17 05:18] LABS: Absolute Neutrophil Ct (ANC) 6.44 (1.4-6.9); BASOPHIL % 0.1 % (0.0-0.4); Basophil (Absolute #) 0.01 (0-0.4); Eosinophil (Absolute #) 0 (0-0.5); Hematocrit 39.7 % (35-47); Hemoglobin 12.8 gm/dl (12.0-16.0); Lymphocyte (Absolute #) 0.78 (1.0-4.6); Mean Cell Volume 97.8 fl (78-100); Mean Corpuscular Hemoglobin 31.5 pg (26-32); Mean Corpuscular Hgb Concent. 32.2 g/dl (32-36); Mean Platelet Volume 10.6 fl (7.5-11.0); Monocyte (Absolute #) 0.55 (0.0-1.3); Monocytes % 7.1 % (0.0-12.0); Neutrophil % 82.8 % (36.0-66.0); Platelet Count 186 K/mm3 (150-450); Red Blood Count 4.06 M/mm3 (4.1-5.4); Red Cell Distribution Width 13.2 % (11.5-14.0); White Blood Count 7.8 K/mm3 (4.0-10.5)
[2021-06-17 05:35] LABS: ALBUMIN 3.1 g/dL (3.5-5.0); ALKALINE PHOSPHATASE 52 U/L (38-126); ANION GAP 13.5 MEQ/L (5-15); BLOOD UREA NITROGEN 20 mg/dL (7-17); CHLORIDE 103 mmol/L (98-107); Calcium 8.1 mg/dL (8.4-10.2); Carbon Dioxide 22 mmol/L (22-30); Creatinine 1 0.72 mg/dL (0.52-1.04); EST GLOMERULAR FILTRATION RATE > 60.0 ML/MIN; Glucose 96 mg/dL (74-106); Potassium 3.9 mmol/L (3.5-5.1); SGOT/AST 40 U/L (14-36); SGPT/ALT 21 U/L (0-35); SODIUM 135 mmol/L (137-145); Total Protein 6.3 g/dL (6.3-8.2)
--- NOTE | 2021-06-17 08:37 | XRAY ---
Indication: Fever. Comparison: April 17, 2020. Portable chest less inflated with new hazy right lung, possible airspace disease. Left lung clear. Heart remains enlarged. Bony thorax intact again with degenerative changes.
--- NOTE | 2021-06-17 08:38 | XRAY ---
Indication: Acute mental status change. Multiple contiguous axial images obtained through the head without contrast. Comparison: February 14, 2021. Study is limited due to moderate motion artifact throughout. No gross acute intracranial hemorrhage, abnormal extra-axial fluid collection, or mass effect. Fourth ventricle is midline without hydrocephalus. Bony calvarium grossly intact. New marked mucosal thickening of both ethmoid, sphenoid, and maxillary sinuses with fluid leveling. Impression: 1. Limited exam due to motion artifact. 2. New pansinusitis. 3. Otherwise no gross acute intracranial abnormalities. Comment: Preliminary interpretation made by [facility]. No critical discrepancy.
[2021-06-17] MEDS: ENOXAPARIN SODIUM SQ SCH (09:00)
[2021-06-17] MEDS: ROCEPHIN 1 Gm-D5w 50 ml Bag** 1 G/50 ML IVPB IV SCH (09:00)
[2021-06-17] MEDS: solu-MEDROL 60 MG, Sterile H2O 10 ml 2 ML IV SCH ×6 (09:29→21:54)
[2021-06-17] MEDS: Zithromax 500 MG/ 250 ML NaCl Premix 500 MG/250 ML IVPB IV SCH (09:29)
[2021-06-17] MEDS: TYLENOL 325 MG PO PRN (09:29)
[2021-06-17] MEDS ORDERED: MEDICATION INTERVENTION MC SCH (10:15)
[2021-06-17] MEDS: Protonix 40MG Tablet PO SCH (10:53)
[2021-06-17] MEDS: ANTIVERT 25 MG PO SCH (10:53)
[2021-06-17] MEDS: Ranexa 500 MG PO SCH (10:53)
[2021-06-17] MEDS: Calcium 500MG W/Vit D Tablet PO SCH (10:53)
[2021-06-17] MEDS: Sodium Chloride 0.9% 1000 ML 1,000 ML IV SCH ×2 (10:54→22:36)
[2021-06-17] MEDS: Pepcid 20 MG PO SCH ×2 (10:54→21:54)
[2021-06-17] MEDS: Bystolic 5 MG PO SCH ×2 (10:54→21:54)
[2021-06-17] MEDS: hydroDIURIL 25 MG PO SCH (10:56)
--- NOTE | 2021-06-17 14:51 | PCM.HP ---
History of Present Illness - Chief Complaint Chief Complaint: Altered mental status, Infuenza B, fever, right lundg infil trate History of Present Illness: is a 70 year old female patient of Dr Gino Valdez with PMHx HTN,HLD and GERD. She was evaluated in ER for AMS,patient was dg with pneumonia and Influenza B. Since admission to [facility] patient has regained normal mentation. She does not remember ER but knows she is in the hospital now. - Review of Systems Constitutional: Fever Eyes: Discharge Ears, Nose, & Throat: Sinus Drainage Respiratory: Cough, Wheezing Cardiac: No Symptoms Abdominal/Gastrointestinal: No Symptoms Genitourinary Symptoms: No Symptoms Musculoskeletal: No Symptoms Skin: No Symptoms Neurological: Lethargy, Other (AMS ,resolved since ER) Medications & Allergies Home Medications: Home Medication List Famotidine 40 mg PO BID 07/02/17 [History Confirmed 06/17/21] Nebivolol HCl [Bystolic] 10 mg PO BID 07/02/17 [History Confirmed 06/17/21] Rosuvastatin Calcium 10 mg PO HS 07/02/17 [History Confirmed 06/17/21] Vilazodone Hydrochloride [Viibryd] 40 mg PO DAILY 07/02/17 [History Confirmed 06/17/21] Calcium Carb/Vitamin D3/Vit K1 [Calcium + D Soft Chewable Tab] 1 tab PO DAILY 06/17/21 [History Confirmed 06/17/21] Meclizine HCl 25 mg [Antivert 25 mg] 25 mg PO DAILY 06/17/21 [History Confirmed 06/17/21] Methylprednisolone 4 mg PO DAILY 06/17/21 [History Confirmed 06/17/21] Omeprazole 40 mg PO DAILY 06/17/21 [History Confirmed 06/17/21] Ranolazine [Ranolazine ER] 1,000 mg PO DAILY 06/17/21 [History Confirmed 06/17/21] hydroCHLOROthiazide [Hydrochlorothiazide] 12.5 mg PO DAILY 06/17/21 [History Confirmed 06/17/21] Allergies/Adverse Reactions: Allergies Allergy/AdvReac Type Severity Reaction Status Date / Time acetaminophen Allergy Mild Verified 06/17/21 14:59 [From Darvocet-N] propoxyphene Allergy Mild Verified 06/17/21 14:59 [From Darvocet-N] sucralfate [From Carafate] Allergy Mild Verified 06/17/21 14:59 - Past Medical History Past Medical History: Yes Neurological History: No Pertinent History ENT History: No Pertinent History Cardiac History: Angina Respiratory History: COPD Endocrine Medical History: No Pertinent History Musculoskelatal History: Arthritis, Other GI Medical History: GERD History: No Pertinent History Pyscho-Social History: Anxiety, Depression Reproductive Disorders: No Pertinent History Comment: pt left leg partially crippled, assessment recalled, unable to assess d/t altered mental status - Female History Are you now?: No - Past Surgical History Past Surgical History: Yes Neuro Surgical History: No Pertinent History Cardiac History: No Pertinent History Respiratory Surgery: No Pertinent History GI Surgical History: Cholecystectomy Genitourinary Surgical Hx: No Pertinent History Musculskeletal Surgical Hx: No Pertinent History Female Surgical History: No Pertinent History, Tubal Ligation Other Surgical History: back surgery. assessment recalled, unable to assess d/t altered mental status - Social History Smoking Status: Unknown if ever smoked How long have you smoked: years Exposure to second hand smoke: Yes Alcohol: None Drug Use: none - Physical Exam Vital Signs: Vital Signs - 24 hr Temp Pulse Resp BP Pulse Ox 06/17/21 12:00 98.6 F 70 24 91/60 95 06/17/21 08:00 100.6 F 66 19 107/22 92 L 06/17/21 05:11 97.9 F 65 23 107/55 95 06/17/21 03:50 95 06/17/21 02:34 68 18 105/59 98 06/17/21 01:04 100.6 F 77 18 103/53 98 06/17/21 00:25 70 18 112/61 97 06/16/21 23:01 100.6 F 74 24 99/79 98 06/16/21 22:48 100.9 F 73 18 113/63 97 06/16/21 21:51 96 06/16/21 21:23 100.9 F 79 20 151/70 98 General Appearance: no apparent distress Neurologic Exam: alert, oriented x 3 Eye Exam: eyes nml inspection Ears, Nose, Throat Exam: moist mucous membranes, other (nasal congestion) Neck Exam: normal inspection Respiratory Exam: rhonchi, wheezing (mid bilaterally) Cardiovascular Exam: regular rate/rhythm Gastrointestinal/Abdomen Exam: soft (nontender) Pelvic Exam: not done Rectal Exam: not done Back Exam: normal inspection Extremity Exam: other (no pitting edema) Skin Exam: warm, dry, pale Results - Labs Lab/Micro Results: Lab Results-Last 24 Hours 06/16/21 06/16/21 06/16/21 Range/Units 00:20 00:20 20:50 WBC (4.0-10.5) K/mm3 RBC (4.1-5.4) M/mm3 Hgb (12.0-16.0) gm/dl Hct (35-47) % MCV (78-100) fl MCH (26-32) pg MCHC (32-36) g/dl RDW (11.5-14.0) % Plt Count (150-450) K/mm3 MPV (7.5-11.0) fl Gran % (36.0-66.0) % Eos # (Auto) (0-0.5) Absolute Lymphs (auto) (1.0-4.6) Absolute Monos (auto) (0.0-1.3) Lymphocytes % (24.0-44.0) % Monocytes % (0.0-12.0) % Eosinophils % (0.00-5.0) % Basophils % (0.0-0.4) % Absolute Granulocytes (1.4-6.9) Basophils # (0-0.4) Puncture Site pCO2 (35-45) mmHg pO2 (75-100) mmHg Base Excess (-2.0-2.0) O2 Saturation (94-100) g/dF ABG pH (7.35-7.45) ABG HCO3 (22-28) ABG O2 Sat (Measured) (95-100) % Dontrell Test A-a Gradient a/A Ratio Hemoglobin Carboxyhemoglobin (0.0-6.9) % THgb Methemoglobin (1.4-1.5) % Temperature C POC O2 Flow Rate % Sodium (137-145) mmol/L Potassium (3.5-5.1) mmol/L Chloride (98-107) mmol/L Carbon Dioxide (22-30) mmol/L Anion Gap (5-15) MEQ/L BUN (7-17) mg/dL Creatinine (0.52-1.04) mg/dL Estimated GFR ML/MIN Glucose (74-106) mg/dL Lactic Acid (0.4-2.0) Calcium (8.4-10.2) mg/dL Total Bilirubin (0.2-1.3) mg/dL AST (14-36) U/L ALT (0-35) U/L Alkaline Phosphatase (38-126) U/L Ammonia < 9 L (9-30) umol/L Troponin I (0.000-0.034) ng/mL Serum Total Protein (6.3-8.2) g/dL Albumin (3.5-5.0) g/dL Thyroxine (T4) (5.53-10.96) ug/dL TSH 3rd Generation (0.47-4.68) mIU/L Urine Color (YELLOW) Urine Appearance (CLEAR) Urine pH (5-6) Ur Specific [place] (1.005-1.025) Urine Protein (Negative) Urine Ketones (NEGATIVE) Urine Blood (0-5) Mina/ul Urine Nitrite (NEGATIVE) Urine Bilirubin (NEGATIVE) Urine Urobilinogen (0-1) mg/dL Ur Leukocyte Esterase (NEGATIVE) Urine WBC (Auto) (0-5) /HPF Urine RBC (Auto) (0-2) /HPF U Hyaline Cast (Auto) (0-2) /LPF U Epithel Cells (Auto) (FEW) /HPF Urine Bacteria (Auto) (NEGATIVE) /HPF Urine Mucus (Auto) (NEGATIVE) /HPF Urine Culture Reflexed (NO) Urine Glucose (NEGATIVE) mg/dL Salicylates (2-20) mg/dL Urine Opiates Level (NEGATIVE) Ur Methadone (NEGATIVE) Acetaminophen (10-30) ug/ml Urine Barbiturates (NEGATIVE) Ur Phencyclidine (PCP) (NEGATIVE) Urine Amphetamine (NEGATIVE) U Benzodiazepine Level (NEGATIVE) Urine Cocaine (NEGATIVE) Urine Marijuana (THC) (NEGATIVE) Ethyl Alcohol (0-10) mg/dL Monoscreen NEGATIVE (Negative) Influenza Type A Ag (NEGATIVE) Influenza Type B Ag (NEGATIVE) SARS-CoV-2 (PCR) (NEGATIVE) Group A Strep Antibody NOT DETECTED (NEGATIVE) 06/16/21 06/16/21 06/16/21 Range/Units 21:45 21:45 21:51 WBC (4.0-10.5) K/mm3 RBC (4.1-5.4) M/mm3 Hgb (12.0-16.0) gm/dl Hct (35-47) % MCV (78-100) fl MCH (26-32) pg MCHC (32-36) g/dl RDW (11.5-14.0) % Plt Count (150-450) K/mm3 MPV (7.5-11.0) fl Gran % (36.0-66.0) % Eos # (Auto) (0-0.5) Absolute Lymphs (auto) (1.0-4.6) Absolute Monos (auto) (0.0-1.3) Lymphocytes % (24.0-44.0) % Monocytes % (0.0-12.0) % Eosinophils % (0.00-5.0) % Basophils % (0.0-0.4) % Absolute Granulocytes (1.4-6.9) Basophils # (0-0.4) Puncture Site pCO2 (35-45) mmHg pO2 (75-100) mmHg Base Excess (-2.0-2.0) O2 Saturation (94-100) g/dF ABG pH (7.35-7.45) ABG HCO3 (22-28) ABG O2 Sat (Measured) (95-100) % Dontrell Test A-a Gradient a/A Ratio Hemoglobin Carboxyhemoglobin (0.0-6.9) % THgb Methemoglobin (1.4-1.5) % Temperature C POC O2 Flow Rate % Sodium (137-145) mmol/L Potassium (3.5-5.1) mmol/L Chloride (98-107) mmol/L Carbon Dioxide (22-30) mmol/L Anion Gap (5-15) MEQ/L BUN (7-17) mg/dL Creatinine (0.52-1.04) mg/dL Estimated GFR ML/MIN Glucose (74-106) mg/dL Lactic Acid 1.7 (0.4-2.0) Calcium (8.4-10.2) mg/dL Total Bilirubin (0.2-1.3) mg/dL AST (14-36) U/L ALT (0-35) U/L Alkaline Phosphatase (38-126) U/L Ammonia (9-30) umol/L Troponin I (0.000-0.034) ng/mL Serum Total Protein (6.3-8.2) g/dL Albumin (3.5-5.0) g/dL Thyroxine (T4) (5.53-10.96) ug/dL TSH 3rd Generation (0.47-4.68) mIU/L Urine Color YELLOW (YELLOW) Urine Appearance CLEAR (CLEAR) Urine pH 5.0 (5-6) Ur Specific [place] 1.016 (1.005-1.025) Urine Protein NEGATIVE (Negative) Urine Ketones NEGATIVE (NEGATIVE) Urine Blood NEGATIVE (0-5) Mina/ul Urine Nitrite NEGATIVE (NEGATIVE) Urine Bilirubin NEGATIVE (NEGATIVE) Urine Urobilinogen NEGATIVE (0-1) mg/dL Ur Leukocyte Esterase NEGATIVE (NEGATIVE) Urine WBC (Auto) NONE (0-5) /HPF Urine RBC (Auto) NONE (0-2) /HPF U Hyaline Cast (Auto) 0-2 (0-2) /LPF U Epithel Cells (Auto) NONE (FEW) /HPF Urine Bacteria (Auto) NONE (NEGATIVE) /HPF Urine Mucus (Auto) SLIGHT (NEGATIVE) /HPF Urine Culture Reflexed NO (NO) Urine Glucose NEGATIVE (NEGATIVE) mg/dL Salicylates (2-20) mg/dL Urine Opiates Level (NEGATIVE) Ur Methadone (NEGATIVE) Acetaminophen (10-30) ug/ml Urine Barbiturates (NEGATIVE) Ur Phencyclidine (PCP) (NEGATIVE) Urine Amphetamine (NEGATIVE) U Benzodiazepine Level (NEGATIVE) Urine Cocaine (NEGATIVE) Urine Marijuana (THC) (NEGATIVE) Ethyl Alcohol (0-10) mg/dL Monoscreen (Negative) Influenza Type A Ag NEGATIVE (NEGATIVE) Influenza Type B Ag POSITIVE (NEGATIVE) SARS-CoV-2 (PCR) (NEGATIVE) Group A Strep Antibody (NEGATIVE) 06/16/21 06/16/21 06/16/21 Range/Units 22:00 22:00 22:08 WBC (4.0-10.5) K/mm3 RBC (4.1-5.4) M/mm3 Hgb (12.0-16.0) gm/dl Hct (35-47) % MCV (78-100) fl MCH (26-32) pg MCHC (32-36) g/dl RDW (11.5-14.0) % Plt Count (150-450) K/mm3 MPV (7.5-11.0) fl Gran % (36.0-66.0) % Eos # (Auto) (0-0.5) Absolute Lymphs (auto) (1.0-4.6) Absolute Monos (auto) (0.0-1.3) Lymphocytes % (24.0-44.0) % Monocytes % (0.0-12.0) % Eosinophils % (0.00-5.0) % Basophils % (0.0-0.4) % Absolute Granulocytes (1.4-6.9) Basophils # (0-0.4) Puncture Site pCO2 (35-45) mmHg pO2 (75-100) mmHg Base Excess (-2.0-2.0) O2 Saturation (94-100) g/dF ABG pH (7.35-7.45) ABG HCO3 (22-28) ABG O2 Sat (Measured) (95-100) % Dontrell Test A-a Gradient a/A Ratio Hemoglobin Carboxyhemoglobin (0.0-6.9) % THgb Methemoglobin (1.4-1.5) % Temperature C POC O2 Flow Rate % Sodium (137-145) mmol/L Potassium (3.5-5.1) mmol/L Chloride (98-107) mmol/L Carbon Dioxide (22-30) mmol/L Anion Gap (5-15) MEQ/L BUN (7-17) mg/dL Creatinine (0.52-1.04) mg/dL Estimated GFR ML/MIN Glucose (74-106) mg/dL Lactic Acid (0.4-2.0) Calcium (8.4-10.2) mg/dL Total Bilirubin (0.2-1.3) mg/dL AST (14-36) U/L ALT (0-35) U/L Alkaline Phosphatase (38-126) U/L Ammonia (9-30) umol/L Troponin I (0.000-0.034) ng/mL Serum Total Protein (6.3-8.2) g/dL Albumin (3.5-5.0) g/dL Thyroxine (T4) 7.66 (5.53-10.96) ug/dL TSH 3rd Generation 3.280 (0.47-4.68) mIU/L Urine Color (YELLOW) Urine Appearance (CLEAR) Urine pH (5-6) Ur Specific [place] (1.005-1.025) Urine Protein (Negative) Urine Ketones (NEGATIVE) Urine Blood (0-5) Mina/ul Urine Nitrite (NEGATIVE) Urine Bilirubin (NEGATIVE) Urine Urobilinogen (0-1) mg/dL Ur Leukocyte Esterase (NEGATIVE) Urine WBC (Auto) (0-5) /HPF Urine RBC (Auto) (0-2) /HPF U Hyaline Cast (Auto) (0-2) /LPF U Epithel Cells (Auto) (FEW) /HPF Urine Bacteria (Auto) (NEGATIVE) /HPF Urine Mucus (Auto) (NEGATIVE) /HPF Urine Culture Reflexed (NO) Urine Glucose (NEGATIVE) mg/dL Salicylates < 1.0 L (2-20) mg/dL Urine Opiates Level (NEGATIVE) Ur Methadone (NEGATIVE) Acetaminophen < 10 L (10-30) ug/ml Urine Barbiturates (NEGATIVE) Ur Phencyclidine (PCP) (NEGATIVE) Urine Amphetamine (NEGATIVE) U Benzodiazepine Level (NEGATIVE) Urine Cocaine (NEGATIVE) Urine Marijuana (THC) (NEGATIVE) Ethyl Alcohol < 10 (0-10) mg/dL Monoscreen (Negative) Influenza Type A Ag (NEGATIVE) Influenza Type B Ag (NEGATIVE) SARS-CoV-2 (PCR) (NEGATIVE) Group A Strep Antibody (NEGATIVE) 06/16/21 06/16/21 06/16/21 Range/Units 22:23 22:23 23:00 WBC 8.0 (4.0-10.5) K/mm3 RBC 4.37 (4.1-5.4) M/mm3 Hgb 13.9 (12.0-16.0) gm/dl Hct 42.4 (35-47) % MCV 97.0 (78-100) fl MCH 31.8 (26-32) pg MCHC 32.8 (32-36) g/dl RDW 13.2 (11.5-14.0) % Plt Count 191 (150-450) K/mm3 MPV 10.2 (7.5-11.0) fl Gran % 83.0 H (36.0-66.0) % Eos # (Auto) 0 (0-0.5) Absolute Lymphs (auto) 0.89 L (1.0-4.6) Absolute Monos (auto) 0.47 (0.0-1.3) Lymphocytes % 11.1 L (24.0-44.0) % Monocytes % 5.8 (0.0-12.0) % Eosinophils % 0.0 (0.00-5.0) % Basophils % 0.1 (0.0-0.4) % Absolute Granulocytes 6.67 (1.4-6.9) Basophils # 0.01 (0-0.4) Puncture Site pCO2 (35-45) mmHg pO2 (75-100) mmHg Base Excess (-2.0-2.0) O2 Saturation (94-100) g/dF ABG pH (7.35-7.45) ABG HCO3 (22-28) ABG O2 Sat (Measured) (95-100) % Dontrell Test A-a Gradient a/A Ratio Hemoglobin Carboxyhemoglobin (0.0-6.9) % THgb Methemoglobin (1.4-1.5) % Temperature C POC O2 Flow Rate % Sodium 138 (137-145) mmol/L Potassium 3.8 (3.5-5.1) mmol/L Chloride 100 (98-107) mmol/L Carbon Dioxide 24 (22-30) mmol/L Anion Gap 17.3 H (5-15) MEQ/L BUN 23 H (7-17) mg/dL Creatinine 0.85 (0.52-1.04) mg/dL Estimated GFR > 60.0 ML/MIN Glucose 106 (74-106) mg/dL Lactic Acid (0.4-2.0) Calcium 8.9 (8.4-10.2) mg/dL Total Bilirubin 0.50 (0.2-1.3) mg/dL AST 40 H (14-36) U/L ALT 25 (0-35) U/L Alkaline Phosphatase 69 (38-126) U/L Ammonia (9-30) umol/L Troponin I < 0.012 (0.000-0.034) ng/mL Serum Total Protein 7.7 (6.3-8.2) g/dL Albumin 4.0 (3.5-5.0) g/dL Thyroxine (T4) (5.53-10.96) ug/dL TSH 3rd Generation (0.47-4.68) mIU/L Urine Color (YELLOW) Urine Appearance (CLEAR) Urine pH (5-6) Ur Specific [place] (1.005-1.025) Urine Protein (Negative) Urine Ketones (NEGATIVE) Urine Blood (0-5) Mina/ul Urine Nitrite (NEGATIVE) Urine Bilirubin (NEGATIVE) Urine Urobilinogen (0-1) mg/dL Ur Leukocyte Esterase (NEGATIVE) Urine WBC (Auto) (0-5) /HPF Urine RBC (Auto) (0-2) /HPF U Hyaline Cast (Auto) (0-2) /LPF U Epithel Cells (Auto) (FEW) /HPF Urine Bacteria (Auto) (NEGATIVE) /HPF Urine Mucus (Auto) (NEGATIVE) /HPF Urine Culture Reflexed (NO) Urine Glucose (NEGATIVE) mg/dL Salicylates (2-20) mg/dL Urine Opiates Level (NEGATIVE) Ur Methadone (NEGATIVE) Acetaminophen (10-30) ug/ml Urine Barbiturates (NEGATIVE) Ur Phencyclidine (PCP) (NEGATIVE) Urine Amphetamine (NEGATIVE) U Benzodiazepine Level (NEGATIVE) Urine Cocaine (NEGATIVE) Urine Marijuana (THC) (NEGATIVE) Ethyl Alcohol (0-10) mg/dL Monoscreen (Negative) Influenza Type A Ag (NEGATIVE) Influenza Type B Ag (NEGATIVE) SARS-CoV-2 (PCR) (NEGATIVE) Group A Strep Antibody (NEGATIVE) 06/16/21 06/17/21 06/17/21 Range/Units 23:24 00:44 01:00 WBC (4.0-10.5) K/mm3 RBC (4.1-5.4) M/mm3 Hgb (12.0-16.0) gm/dl Hct (35-47) % MCV (78-100) fl MCH (26-32) pg MCHC (32-36) g/dl RDW (11.5-14.0) % Plt Count (150-450) K/mm3 MPV (7.5-11.0) fl Gran % (36.0-66.0) % Eos # (Auto) (0-0.5) Absolute Lymphs (auto) (1.0-4.6) Absolute Monos (auto) (0.0-1.3) Lymphocytes % (24.0-44.0) % Monocytes % (0.0-12.0) % Eosinophils % (0.00-5.0) % Basophils % (0.0-0.4) % Absolute Granulocytes (1.4-6.9) Basophils # (0-0.4) Puncture Site LEFT BRACHIAL pCO2 38 (35-45) mmHg pO2 78 (75-100) mmHg Base Excess -0.3 (-2.0-2.0) O2 Saturation 95.3 (94-100) g/dF ABG pH 7.41 (7.35-7.45) ABG HCO3 24.1 (22-28) ABG O2 Sat (Measured) 97.2 (95-100) % Dontrell Test NOT APPLICABLE A-a Gradient 24 a/A Ratio 0.76 Hemoglobin 12.7 Carboxyhemoglobin 1.3 (0.0-6.9) % THgb Methemoglobin 0.7 L (1.4-1.5) % Temperature 37.0 C POC O2 Flow Rate 32 % Sodium (137-145) mmol/L Potassium 3.7 (3.5-5.1) mmol/L Chloride (98-107) mmol/L Carbon Dioxide (22-30) mmol/L Anion Gap (5-15) MEQ/L BUN (7-17) mg/dL Creatinine (0.52-1.04) mg/dL Estimated GFR ML/MIN Glucose (74-106) mg/dL Lactic Acid (0.4-2.0) Calcium (8.4-10.2) mg/dL Total Bilirubin (0.2-1.3) mg/dL AST (14-36) U/L ALT (0-35) U/L Alkaline Phosphatase (38-126) U/L Ammonia (9-30) umol/L Troponin I < 0.012 (0.000-0.034) ng/mL Serum Total Protein (6.3-8.2) g/dL Albumin (3.5-5.0) g/dL Thyroxine (T4) (5.53-10.96) ug/dL TSH 3rd Generation (0.47-4.68) mIU/L Urine Color (YELLOW) Urine Appearance (CLEAR) Urine pH (5-6) Ur Specific [place] (1.005-1.025) Urine Protein (Negative) Urine Ketones (NEGATIVE) Urine Blood (0-5) Mina/ul Urine Nitrite (NEGATIVE) Urine Bilirubin (NEGATIVE) Urine Urobilinogen (0-1) mg/dL Ur Leukocyte Esterase (NEGATIVE) Urine WBC (Auto) (0-5) /HPF Urine RBC (Auto) (0-2) /HPF U Hyaline Cast (Auto) (0-2) /LPF U Epithel Cells (Auto) (FEW) /HPF Urine Bacteria (Auto) (NEGATIVE) /HPF Urine Mucus (Auto) (NEGATIVE) /HPF Urine Culture Reflexed (NO) Urine Glucose (NEGATIVE) mg/dL Salicylates (2-20) mg/dL Urine Opiates Level NEGATIVE (NEGATIVE) Ur Methadone NEGATIVE (NEGATIVE) Acetaminophen (10-30) ug/ml Urine Barbiturates NEGATIVE (NEGATIVE) Ur Phencyclidine (PCP) NEGATIVE (NEGATIVE) Urine Amphetamine NEGATIVE (NEGATIVE) U Benzodiazepine Level NEGATIVE (NEGATIVE) Urine Cocaine NEGATIVE (NEGATIVE) Urine Marijuana (THC) NEGATIVE (NEGATIVE) Ethyl Alcohol (0-10) mg/dL Monoscreen (Negative) Influenza Type A Ag (NEGATIVE) Influenza Type B Ag (NEGATIVE) SARS-CoV-2 (PCR) (NEGATIVE) Group A Strep Antibody (NEGATIVE) 06/17/21 06/17/21 06/17/21 Range/Units 01:30 04:50 04:50 WBC 7.8 (4.0-10.5) K/mm3 RBC 4.06 L (4.1-5.4) M/mm3 Hgb 12.8 (12.0-16.0) gm/dl Hct 39.7 (35-47) % MCV 97.8 (78-100) fl MCH 31.5 (26-32) pg MCHC 32.2 (32-36) g/dl RDW 13.2 (11.5-14.0) % Plt Count 186 (150-450) K/mm3 MPV 10.6 (7.5-11.0) fl Gran % 82.8 H (36.0-66.0) % Eos # (Auto) 0 (0-0.5) Absolute Lymphs (auto) 0.78 L (1.0-4.6) Absolute Monos (auto) 0.55 (0.0-1.3) Lymphocytes % 10.0 L (24.0-44.0) % Monocytes % 7.1 (0.0-12.0) % Eosinophils % 0.0 (0.00-5.0) % Basophils % 0.1 (0.0-0.4) % Absolute Granulocytes 6.44 (1.4-6.9) Basophils # 0.01 (0-0.4) Puncture Site pCO2 (35-45) mmHg pO2 (75-100) mmHg Base Excess (-2.0-2.0) O2 Saturation (94-100) g/dF ABG pH (7.35-7.45) ABG HCO3 (22-28) ABG O2 Sat (Measured) (95-100) % Donrtell Test A-a Gradient a/A Ratio Hemoglobin Carboxyhemoglobin (0.0-6.9) % THgb Methemoglobin (1.4-1.5) % Temperature C POC O2 Flow Rate % Sodium (137-145) mmol/L Potassium (3.5-5.1) mmol/L Chloride (98-107) mmol/L Carbon Dioxide (22-30) mmol/L Anion Gap (5-15) MEQ/L BUN (7-17) mg/dL Creatinine (0.52-1.04) mg/dL Estimated GFR ML/MIN Glucose (74-106) mg/dL Lactic Acid (0.4-2.0) Calcium (8.4-10.2) mg/dL Total Bilirubin (0.2-1.3) mg/dL AST (14-36) U/L ALT (0-35) U/L Alkaline Phosphatase (38-126) U/L Ammonia (9-30) umol/L Troponin I < 0.012 (0.000-0.034) ng/mL Serum Total Protein (6.3-8.2) g/dL Albumin (3.5-5.0) g/dL Thyroxine (T4) (5.53-10.96) ug/dL TSH 3rd Generation (0.47-4.68) mIU/L Urine Color (YELLOW) Urine Appearance (CLEAR) Urine pH (5-6) Ur Specific [place] (1.005-1.025) Urine Protein (Negative) Urine Ketones (NEGATIVE) Urine Blood (0-5) Mina/ul Urine Nitrite (NEGATIVE) Urine Bilirubin (NEGATIVE) Urine Urobilinogen (0-1) mg/dL Ur Leukocyte Esterase (NEGATIVE) Urine WBC (Auto) (0-5) /HPF Urine RBC (Auto) (0-2) /HPF U Hyaline Cast (Auto) (0-2) /LPF U Epithel Cells (Auto) (FEW) /HPF Urine Bacteria (Auto) (NEGATIVE) /HPF Urine Mucus (Auto) (NEGATIVE) /HPF Urine Culture Reflexed (NO) Urine Glucose (NEGATIVE) mg/dL Salicylates (2-20) mg/dL Urine Opiates Level (NEGATIVE) Ur Methadone (NEGATIVE) Acetaminophen (10-30) ug/ml Urine Barbiturates (NEGATIVE) Ur Phencyclidine (PCP) (NEGATIVE) Urine Amphetamine (NEGATIVE) U Benzodiazepine Level (NEGATIVE) Urine Cocaine (NEGATIVE) Urine Marijuana (THC) (NEGATIVE) Ethyl Alcohol (0-10) mg/dL Monoscreen (Negative) Influenza Type A Ag (NEGATIVE) Influenza Type B Ag (NEGATIVE) SARS-CoV-2 (PCR) NEGATIVE (NEGATIVE) Group A Strep Antibody (NEGATIVE) 06/17/21 06/17/21 06/17/21 Range/Units 04:50 07:10 09:58 WBC (4.0-10.5) K/mm3 RBC (4.1-5.4) M/mm3 Hgb (12.0-16.0) gm/dl Hct (35-47) % MCV (78-100) fl MCH (26-32) pg MCHC (32-36) g/dl RDW (11.5-14.0) % Plt Count (150-450) K/mm3 MPV (7.5-11.0) fl Gran % (36.0-66.0) % Eos # (Auto) (0-0.5) Absolute Lymphs (auto) (1.0-4.6) Absolute Monos (auto) (0.0-1.3) Lymphocytes % (24.0-44.0) % Monocytes % (0.0-12.0) % Eosinophils % (0.00-5.0) % Basophils % (0.0-0.4) % Absolute Granulocytes (1.4-6.9) Basophils # (0-0.4) Puncture Site pCO2 (35-45) mmHg pO2 (75-100) mmHg Base Excess (-2.0-2.0) O2 Saturation (94-100) g/dF ABG pH (7.35-7.45) ABG HCO3 (22-28) ABG O2 Sat (Measured) (95-100) % [place] Test A-a Gradient a/A Ratio Hemoglobin Carboxyhemoglobin (0.0-6.9) % THgb Methemoglobin (1.4-1.5) % Temperature C POC O2 Flow Rate % Sodium 135 L (137-145) mmol/L Potassium 3.9 (3.5-5.1) mmol/L Chloride 103 (98-107) mmol/L Carbon Dioxide 22 (22-30) mmol/L Anion Gap 13.5 (5-15) MEQ/L BUN 20 H (7-17) mg/dL Creatinine 0.72 (0.52-1.04) mg/dL Estimated GFR > 60.0 ML/MIN Glucose 96 (74-106) mg/dL Lactic Acid (0.4-2.0) Calcium 8.1 L (8.4-10.2) mg/dL Total Bilirubin 0.40 (0.2-1.3) mg/dL AST 40 H (14-36) U/L ALT 21 (0-35) U/L Alkaline Phosphatase 52 (38-126) U/L Ammonia (9-30) umol/L Troponin I < 0.012 < 0.012 (0.000-0.034) ng/mL Serum Total Protein 6.3 (6.3-8.2) g/dL Albumin 3.1 L (3.5-5.0) g/dL Thyroxine (T4) (5.53-10.96) ug/dL TSH 3rd Generation (0.47-4.68) mIU/L Urine Color (YELLOW) Urine Appearance (CLEAR) Urine pH (5-6) Ur Specific [place] (1.005-1.025) Urine Protein (Negative) Urine Ketones (NEGATIVE) Urine Blood (0-5) Mina/ul Urine Nitrite (NEGATIVE) Urine Bilirubin (NEGATIVE) Urine Urobilinogen (0-1) mg/dL Ur Leukocyte Esterase (NEGATIVE) Urine WBC (Auto) (0-5) /HPF Urine RBC (Auto) (0-2) /HPF U Hyaline Cast (Auto) (0-2) /LPF U Epithel Cells (Auto) (FEW) /HPF Urine Bacteria (Auto) (NEGATIVE) /HPF Urine Mucus (Auto) (NEGATIVE) /HPF Urine Culture Reflexed (NO) Urine Glucose (NEGATIVE) mg/dL Salicylates (2-20) mg/dL Urine Opiates Level (NEGATIVE) Ur Methadone (NEGATIVE) Acetaminophen (10-30) ug/ml Urine Barbiturates (NEGATIVE) Ur Phencyclidine (PCP) (NEGATIVE) Urine Amphetamine (NEGATIVE) U Benzodiazepine Level (NEGATIVE) Urine Cocaine (NEGATIVE) Urine Marijuana (THC) (NEGATIVE) Ethyl Alcohol (0-10) mg/dL Monoscreen (Negative) Influenza Type A Ag (NEGATIVE) Influenza Type B Ag (NEGATIVE) SARS-CoV-2 (PCR) (NEGATIVE) Group A Strep Antibody (NEGATIVE) - Radiology Impressions Radiology Exams & Impressions: Radiology Procedures Category Date Time Status CHEST 1 VIEW (PORTABLE) Stat Exams 06/16/21 21:44 Completed HEAD WITHOUT CONTRAST [CT] Stat Exams 06/16/21 21:44 Completed - Other Procedures and Tests Respiratory Therapy 06/17/21 03:48 Oxygen Nasal Cannula 4 lpm Assessment/Plan (1) Altered mental status Current Visit: Yes Status: Resolved Qualifiers: Altered mental status type: transient alteration of awareness Qualified Code(s): R40.4 - Transient alteration of awareness Code(s): R41.82 - ALTERED MENTAL STATUS, UNSPECIFIED (2) Influenza B Current Visit: Yes Status: Acute Code(s): J10.1 - FLU DUE TO OTH IDENT INFLUENZA VIRUS W OTH RESP MANIFEST (3) Pneumonia Current Visit: Yes Status: Acute Qualifiers: Pneumonia type: due to unspecified organism Laterality: right Lung location: unspecified part of lung Qualified Code(s): J18.9 - Pneumonia, unspecified organism Code(s): J18.9 - PNEUMONIA, UNSPECIFIED ORGANISM
[2021-06-17] MEDS: ZOCOR 20MG PO SCH (21:54)
[2021-06-17] MEDS ORDERED: NON-FORMULARY ITEM (Famotidine [Famotidine] 40 MG) PO SCH (22:00)
[2021-06-17] MEDS ORDERED: NON-FORMULARY ITEM (Nebivolol Hcl [Bystolic] 10 MG) PO SCH (22:00)
[2021-06-17] MEDS ORDERED: NON-FORMULARY ITEM (Rosuvastatin Calcium [Rosuvastatin Calcium] 10 MG) PO SCH (22:00)
[2021-06-18] MEDS: solu-MEDROL 60 MG, Sterile H2O 10 ml 2 ML IV SCH ×6 (06:01→21:07)
[2021-06-18] MEDS: Sodium Chloride 0.9% 1000 ML 1,000 ML IV SCH ×3 (08:43→20:25)
[2021-06-18 09:26] LABS: Absolute Neutrophil Ct (ANC) 6.66 (1.4-6.9); BASOPHIL % 0.1 % (0.0-0.4); Basophil (Absolute #) 0.01 (0-0.4); Eosinophil (Absolute #) 0 (0-0.5); Hemoglobin 12.7 gm/dl (12.0-16.0); Lymphocytes % 9.4 % (24.0-44.0); Mean Cell Volume 98.3 fl (78-100); Mean Corpuscular Hemoglobin 31.2 pg (26-32); Mean Corpuscular Hgb Concent. 31.8 g/dl (32-36); Mean Platelet Volume 10.6 fl (7.5-11.0); Monocyte (Absolute #) 0.09 (0.0-1.3); Monocytes % 1.2 % (0.0-12.0); Neutrophil % 89.3 % (36.0-66.0); Platelet Count 186 K/mm3 (150-450); Red Blood Count 4.07 M/mm3 (4.1-5.4); Red Cell Distribution Width 13.1 % (11.5-14.0); White Blood Count 7.5 K/mm3 (4.0-10.5)
[2021-06-18] MEDS: ROCEPHIN 1 Gm-D5w 50 ml Bag** 1 G/50 ML IVPB IV SCH (09:43)
[2021-06-18] MEDS: Calcium 500MG W/Vit D Tablet PO SCH (09:44)
[2021-06-18] MEDS: Protonix 40MG Tablet PO SCH (09:44)
[2021-06-18] MEDS: ANTIVERT 25 MG PO SCH (09:44)
[2021-06-18] MEDS: Pepcid 20 MG PO SCH ×2 (09:44→21:07)
[2021-06-18] MEDS: Ranexa 500 MG PO SCH (09:44)
[2021-06-18] MEDS: Bystolic 5 MG PO SCH ×2 (09:44→21:07)
[2021-06-18] MEDS: ENOXAPARIN SODIUM SQ SCH (09:45)
[2021-06-18] MEDS: hydroDIURIL 25 MG PO SCH (09:45)
[2021-06-18] MEDS ORDERED: VIT K1 PO SCH (10:00)
[2021-06-18] MEDS ORDERED: [UNRECOGNIZED DRUG - OTHER] PO SCH (10:00)
[2021-06-18] MEDS ORDERED: MEDROL 4 MG PO SCH (10:00)
[2021-06-18] MEDS ORDERED: CALCIUM CARB PO SCH (10:00)
[2021-06-18] MEDS ORDERED: VITAMIN D3 PO SCH (10:00)
[2021-06-18] MEDS ORDERED: NON-FORMULARY ITEM (Vilazodone Hydrochloride [Viibryd] 40 MG) PO SCH (10:00)
[2021-06-18] MEDS ORDERED: NON-FORMULARY ITEM (Hydrochlorothiazide [Hydrochlorothiazide] 12.5 MG) PO SCH (10:00)
[2021-06-18] MEDS ORDERED: NON-FORMULARY ITEM (Omeprazole [Omeprazole] 40 MG) PO SCH (10:00)
[2021-06-18] MEDS ORDERED: RANOLAZINE 1000 MG PO SCH (10:00)
[2021-06-18] MEDS: Zithromax 500 MG/ 250 ML NaCl Premix 500 MG/250 ML IVPB IV SCH (10:36)
[2021-06-18 10:39] LABS: ALBUMIN 3.3 g/dL (3.5-5.0); ALKALINE PHOSPHATASE 51 U/L (38-126); ANION GAP 14.4 MEQ/L (5-15); BLOOD UREA NITROGEN 15 mg/dL (7-17); CHLORIDE 101 mmol/L (98-107); Calcium 7.7 mg/dL (8.4-10.2); Carbon Dioxide 21 mmol/L (22-30); Creatinine 1 0.57 mg/dL (0.52-1.04); EST GLOMERULAR FILTRATION RATE > 60.0 ML/MIN; Glucose 178 mg/dL (74-106); Potassium 3.3 mmol/L (3.5-5.1); SGOT/AST 42 U/L (14-36); SGPT/ALT 25 U/L (0-35); SODIUM 133 mmol/L (137-145)
[2021-06-18] MEDS: PROVENTIL 2.5 MG/3 ML NEB IH PRN (20:34)
[2021-06-18] MEDS: ZOCOR 20MG PO SCH (21:08)
[2021-06-19] MEDS: Ativan 2 MG/1 ML VIAL IV PRN ×3 (00:41→21:12)
[2021-06-19] MEDS: PROVENTIL 2.5 MG/3 ML NEB IH PRN (05:33)
[2021-06-19 05:45] LABS: Absolute Neutrophil Ct (ANC) 9.42 (1.4-6.9); BASOPHIL % 0.1 % (0.0-0.4); Basophil (Absolute #) 0.01 (0-0.4); Eosinophil (Absolute #) 0 (0-0.5); Hematocrit 35.6 % (35-47); Hemoglobin 11.8 gm/dl (12.0-16.0); Lymphocyte (Absolute #) 0.61 (1.0-4.6); Lymphocytes % 5.8 % (24.0-44.0); Mean Corpuscular Hemoglobin 31.8 pg (26-32); Mean Corpuscular Hgb Concent. 33.1 g/dl (32-36); Mean Platelet Volume 10.3 fl (7.5-11.0); Monocyte (Absolute #) 0.41 (0.0-1.3); Monocytes % 3.9 % (0.0-12.0); Neutrophil % 90.2 % (36.0-66.0); Platelet Count 219 K/mm3 (150-450); Red Blood Count 3.71 M/mm3 (4.1-5.4); White Blood Count 10.5 K/mm3 (4.0-10.5)
[2021-06-19] MEDS: Sodium Chloride 0.9% 1000 ML 1,000 ML IV SCH ×2 (05:51→17:07)
[2021-06-19] MEDS: solu-MEDROL 60 MG, Sterile H2O 10 ml 2 ML IV SCH ×6 (05:51→21:13)
[2021-06-19 06:29] LABS: ANION GAP 11.9 MEQ/L (5-15); BLOOD UREA NITROGEN 14 mg/dL (7-17); CHLORIDE 103 mmol/L (98-107); Calcium 7.9 mg/dL (8.4-10.2); Carbon Dioxide 26 mmol/L (22-30); Creatinine 1 0.56 mg/dL (0.52-1.04); EST GLOMERULAR FILTRATION RATE > 60.0 ML/MIN; Glucose 160 mg/dL (74-106); SODIUM 138 mmol/L (137-145)
[2021-06-19 07:12] LABS: Potassium 2.6 mmol/L (3.5-5.1)
[2021-06-19] MEDS ORDERED: Klor Con 10 MEQ PO ONE (07:19)
[2021-06-19] MEDS ORDERED: POTASSIUM CHLORIDE 20 mEq IN WATER 100ML 20 MEQ/100 ML BAG IV ONE (07:19)
--- NOTE | 2021-06-19 08:38 | XRAY ---
Indication: Pneumonia. Acute mental status change. Comparison: June 16, 2021. Portable chest underinflated with worsening right perihilar airspace disease and new tiny effusion. Heart remains enlarged obscuring left lung base. Remaining chest unremarkable.
[2021-06-19] MEDS: Protonix 40MG Tablet PO SCH (09:36)
[2021-06-19] MEDS: hydroDIURIL 25 MG PO SCH (09:36)
[2021-06-19] MEDS: Bystolic 5 MG PO SCH ×3 (09:37→21:14)
[2021-06-19] MEDS: Ranexa 500 MG PO SCH (09:37)
[2021-06-19] MEDS: Pepcid 20 MG PO SCH ×2 (09:39→21:14)
[2021-06-19] MEDS: ANTIVERT 25 MG PO SCH (09:40)
[2021-06-19] MEDS: ENOXAPARIN SODIUM SQ SCH (09:40)
[2021-06-19] MEDS: Calcium 500MG W/Vit D Tablet PO SCH (09:40)
[2021-06-19] MEDS: Advair Hfa 115/21 Common canister IH SCH ×2 (10:10→19:32)
[2021-06-19] MEDS: ROCEPHIN 1 Gm-D5w 50 ml Bag** 1 G/50 ML IVPB IV SCH (10:21)
[2021-06-19] MEDS: Zithromax 500 MG/ 250 ML NaCl Premix 500 MG/250 ML IVPB IV SCH (12:03)
--- NOTE | 2021-06-19 13:37 | PCM.NOTE ---
Date and Time: 06/19/21 1331 Subjective Assessment: Patient says her cough is loosening ,bringing up green phlegm,was up alot last night coughing. Decreased appetite ,is drinking fluids. Objective Exam General Appearance: no apparent distress Neurologic Exam: alert, oriented x 3, cooperative, normal mood/affect Skin Exam: normal color, warm, dry Eye Exam: eyes nml inspection Ears, Nose, Throat Exam: normal ENT inspection Neck Exam: normal inspection Respiratory Exam: rhonchi (mid bilateral ,loose) Cardiovascular Exam: regular rate/rhythm Gastrointestinal/Abdomen Exam: soft (nontender) OBJECTIVE DATA Vital Signs: Vital Signs - 24 hr Temp Pulse Resp BP Pulse Ox 06/19/21 10:10 58 L 24 97 06/19/21 08:00 95.9 F 64 23 132/48 97 06/19/21 05:34 58 L 22 97 06/19/21 03:37 97.1 F 60 23 132/50 95 06/19/21 00:00 98.7 F 67 25 H 130/52 96 06/18/21 20:34 60 25 H 95 06/18/21 19:43 98.8 F 65 28 H 141/59 98 06/18/21 19:21 99.0 F 59 L 20 85/77 98 06/18/21 16:00 98.8 F 56 L 25 H 99/46 95 Pain Assessment - Last Documented Pain Intensity 0 Pain Scale Used 0-10 Pain Scale Intake and Output: Intake & Output 06/17/21 06/18/21 06/19/21 06/20/21 11:59 11:59 11:59 11:59 Intake Total 3527 240 Output Total 725 2500 3000 Balance -725 1027 -2760 Weight 94.3 kg 96.6 kg 96.797 kg Lab Results: Lab Results-Last 24 Hours 06/19/21 06/19/21 Range/Units 05:35 05:35 WBC 10.5 (4.0-10.5) K/mm3 RBC 3.71 L (4.1-5.4) M/mm3 Hgb 11.8 L (12.0-16.0) gm/dl Hct 35.6 (35-47) % MCV 96.0 (78-100) fl MCH 31.8 (26-32) pg MCHC 33.1 (32-36) g/dl RDW 13.0 (11.5-14.0) % Plt Count 219 (150-450) K/mm3 MPV 10.3 (7.5-11.0) fl Gran % 90.2 H (36.0-66.0) % Eos # (Auto) 0 (0-0.5) Absolute Lymphs (auto) 0.61 L (1.0-4.6) Absolute Monos (auto) 0.41 (0.0-1.3) Lymphocytes % 5.8 L (24.0-44.0) % Monocytes % 3.9 (0.0-12.0) % Eosinophils % 0.0 (0.00-5.0) % Basophils % 0.1 (0.0-0.4) % Absolute Granulocytes 9.42 H (1.4-6.9) Basophils # 0.01 (0-0.4) Sodium 138 (137-145) mmol/L Potassium 2.6 L* D (3.5-5.1) mmol/L Chloride 103 (98-107) mmol/L Carbon Dioxide 26 (22-30) mmol/L Anion Gap 11.9 (5-15) MEQ/L BUN 14 (7-17) mg/dL Creatinine 0.56 (0.52-1.04) mg/dL Estimated GFR > 60.0 ML/MIN Glucose 160 H (74-106) mg/dL Calcium 7.9 L (8.4-10.2) mg/dL Radiology Exams: Radiology Procedures Category Date Time Status CHEST 1 VIEW (PORTABLE) Routine Exams 06/19/21 06:00 Completed Multi-Disciplinary Progress Notes: Multi-Disciplinary Progress Notes 06/19/21 12:14 Case Management Note by Pavithra Hanson S/W PATIENT- SHE IS AGREEABLE TO [facility]. UNSURE WHAT COMPANY TO USE. WOULD LIKE HER SON TO DECIDE WILL TRY TO CALL HIM LATER TODAY TO DISCUSS PROVIDERS Initialized on 06/19/21 12:14 - END OF NOTE 06/18/21 20:56 Respiratory Note by Kevin Carr PT COMPLAINED OF SOB AND COUGHING, NURSING CALLED FOR ME TO ASSESS. PT THEN STATED TO ME THAT SHE IN FACT TAKES ALB NEBS PRN AND BREO DAILY. PT CAME INTO HOSPITAL CONFUSED BUT NOW APPEARS TO NOW BE ABLE TO COMMUNICATE HER LUNG HX AND MED USE TO US. I WILL PLACE ORDERS FOR THIS PT TO HAVE THOSE MEDS. GAVE NEB TX AND PLACED PT BACK ON 2LPM POST TX. PT STATES THEY HELP. PT AWARE TO CALL FOR RT IF NEEDED, CALL [facility] W/I REACH. Initialized on 06/18/21 20:56 - END OF NOTE Assessment/Plan (1) Altered mental status Current Visit: Yes Status: Resolved Qualifiers: Altered mental status type: transient alteration of awareness Qualified Code(s): R40.4 - Transient alteration of awareness Code(s): R41.82 - ALTERED MENTAL STATUS, UNSPECIFIED (2) Influenza B Current Visit: Yes Status: Acute Code(s): J10.1 - FLU DUE TO OTH IDENT INFLUENZA VIRUS W OTH RESP MANIFEST (3) Pneumonia Current Visit: Yes Status: Acute Qualifiers: Pneumonia type: due to unspecified organism Laterality: right Lung location: unspecified part of lung Qualified Code(s): J18.9 - Pneumonia, unspecified organism Assessment & Plan: improved clinically,cough productive green mucus,send for Culture,add cough med Code(s): J18.9 - PNEUMONIA, UNSPECIFIED ORGANISM (4) Hypokalemia Current Visit: Yes Status: Acute Assessment & Plan: see orders per Dr Gould this morning,repeat pending Code(s): E87.6 - HYPOKALEMIA
[2021-06-19] MEDS: MUCINEX DM 600/30MG PO SCH ×2 (13:49→21:14)
[2021-06-19] MEDS: POTASSIUM CHLORIDE 20 mEq IN WATER 100ML 20 MEQ/100 ML BAG IV SCH ×2 (15:31→17:36)
[2021-06-19] MEDS: ZOCOR 20MG PO SCH (21:14)
[2021-06-20] MEDS: PROVENTIL 2.5 MG/3 ML NEB IH PRN ×2 (00:25→07:01)
[2021-06-20] MEDS: Sodium Chloride 0.9% 1000 ML 1,000 ML IV SCH (01:21)
[2021-06-20] MEDS: solu-MEDROL 60 MG, Sterile H2O 10 ml 2 ML IV SCH ×4 (05:15→13:19)
[2021-06-20 05:33] LABS: Hematocrit 35.6 % (35-47); Hemoglobin 11.4 gm/dl (12.0-16.0); Mean Corpuscular Hemoglobin 30.7 pg (26-32); Mean Platelet Volume 10.9 fl (7.5-11.0); Platelet Count 241 K/mm3 (150-450); Red Blood Count 3.71 M/mm3 (4.1-5.4); Red Cell Distribution Width 13.3 % (11.5-14.0); White Blood Count 7.2 K/mm3 (4.0-10.5)
[2021-06-20 05:46] LABS: BLOOD UREA NITROGEN 12 mg/dL (7-17); CHLORIDE 102 mmol/L (98-107); Calcium 7.7 mg/dL (8.4-10.2); Carbon Dioxide 27 mmol/L (22-30); Creatinine 1 0.52 mg/dL (0.52-1.04); EST GLOMERULAR FILTRATION RATE > 60.0 ML/MIN; Glucose 201 mg/dL (74-106); SODIUM 138 mmol/L (137-145)
[2021-06-20 06:01] LABS: Potassium 2.6 mmol/L (3.5-5.1)
[2021-06-20 06:02] LABS: ANION GAP 11.6 MEQ/L (5-15)
[2021-06-20] MEDS ORDERED: LASIX 20 MG PO ONE (06:18)
[2021-06-20] MEDS ORDERED: POTASSIUM CHLORIDE 20 mEq IN WATER 100ML 20 MEQ/100 ML BAG IV ONE (06:19)
[2021-06-20] MEDS ORDERED: K-LYTE 25 MEQ PO ONE ×3 (06:30→11:48)
[2021-06-20] MEDS ORDERED: Sodium Chloride 0.9% 10 ML FLUSH Syringe IV PRN (07:00)
[2021-06-20] MEDS: Advair Hfa 115/21 Common canister IH SCH (07:01)
[2021-06-20 09:03] LABS: Lymphocytes 7 % (24-44); Monocyte 2 % (0.0-12.0); Neutrophils 91 % (36.0-66.0); Platelet Estimate NORMAL (NORMAL); Total Cells Counted 100
[2021-06-20] MEDS: ENOXAPARIN SODIUM SQ SCH (09:58)
[2021-06-20] MEDS: Bystolic 5 MG PO SCH ×2 (09:58→21:26)
[2021-06-20] MEDS: ANTIVERT 25 MG PO SCH (09:59)
[2021-06-20] MEDS: Calcium 500MG W/Vit D Tablet PO SCH (09:59)
[2021-06-20] MEDS: Ranexa 500 MG PO SCH (09:59)
[2021-06-20] MEDS: Pepcid 20 MG PO SCH ×2 (09:59→21:26)
[2021-06-20] MEDS: MUCINEX DM 600/30MG PO SCH ×2 (09:59→21:27)
[2021-06-20] MEDS: hydroDIURIL 25 MG PO SCH (10:00)
[2021-06-20] MEDS: Protonix 40MG Tablet PO SCH (10:00)
[2021-06-20] MEDS: ROCEPHIN 1 Gm-D5w 50 ml Bag** 1 G/50 ML IVPB IV SCH (10:01)
[2021-06-20] MEDS: Zithromax 500 MG/ 250 ML NaCl Premix 500 MG/250 ML IVPB IV SCH (11:17)
[2021-06-20] MEDS ORDERED: K-LYTE 25 MEQ PO SCH (13:00)
[2021-06-20] MEDS: Sodium Chloride 0.9% 10 ML FLUSH Syringe IV SCH ×2 (13:20→21:26)
--- NOTE | 2021-06-20 17:37 | PCM.NOTE ---
Date and Time: 06/20/211728 Subjective Assessment: Patient continues to improve but is too weak in general to care for herself at home.PT ordered and got patient up in room today. Low potassium today. Since last draw today, patient has taken 50meq potassium orally .Potassium IV infusion burned per patient. Sugars up on steroids. Steroid dose reduced. Objective Exam General Appearance: no apparent distress Neurologic Exam: alert, oriented x 3, cooperative, normal mood/affect Skin Exam: normal color, warm, dry Neck Exam: normal inspection Respiratory Exam: rhonchi (mid lung chu. L>R) Cardiovascular Exam: regular rate/rhythm (no edema) Extremity Exam: normal inspection OBJECTIVE DATA Vital Signs: Vital Signs - 24 hr Temp Pulse Resp BP BP Pulse Ox 06/20/21 12:00 98.1 F 71 18 150/71 93 L 06/20/21 08:00 98.1 F 71 18 150/71 93 L 06/20/21 07:02 70 20 96 06/20/21 04:00 97.9 F 65 21 151/66 96 06/20/21 00:25 64 29 H 94 L 06/19/21 23:44 98.5 F 59 L 24 140/63 96 06/19/21 21:12 62 18 117/54 06/19/21 20:00 98.3 F 56 L 22 117/54 97 06/19/21 19:32 62 20 94 L Pain Assessment - Last Documented Pain Intensity 0 Pain Scale Used 0-10 Pain Scale Intake and Output: Intake & Output 06/18/21 06/19/21 06/20/21 06/21/21 11:59 11:59 11:59 11:59 Intake Total 3527 240 5921 Output Total 2500 3000 1900 Balance 1027 -1260 4021 Weight 96.6 kg 96.797 kg 97.4 kg Lab Results: Lab Results-Last 24 Hours 06/19/21 06/20/21 06/20/21 Range/Units 21:45 04:15 04:15 WBC 7.2 (4.0-10.5) K/mm3 RBC 3.71 L (4.1-5.4) M/mm3 Hgb 11.4 L (12.0-16.0) gm/dl Hct 35.6 (35-47) % MCV 96.0 (78-100) fl MCH 30.7 (26-32) pg MCHC 32.0 (32-36) g/dl RDW 13.3 (11.5-14.0) % Plt Count 241 (150-450) K/mm3 MPV 10.9 (7.5-11.0) fl Segmented Neutrophils 91 H (36.0-66.0) % Lymphocytes (Manual) 7 L (24-44) % Monocytes (Manual) 2 (0.0-12.0) % Platelet Estimate NORMAL (NORMAL) RBC Morphology NORMAL Sodium 138 (137-145) mmol/L Potassium 3.4 L 2.6 L* D (3.5-5.1) mmol/L Chloride 102 (98-107) mmol/L Carbon Dioxide 27 (22-30) mmol/L Anion Gap 11.6 (5-15) MEQ/L BUN 12 (7-17) mg/dL Creatinine 0.52 (0.52-1.04) mg/dL Estimated GFR > 60.0 ML/MIN Glucose 201 H (74-106) mg/dL Calcium 7.7 L (8.4-10.2) mg/dL 06/20/21 Range/Units 10:30 WBC (4.0-10.5) K/mm3 RBC (4.1-5.4) M/mm3 Hgb (12.0-16.0) gm/dl Hct (35-47) % MCV (78-100) fl MCH (26-32) pg MCHC (32-36) g/dl RDW (11.5-14.0) % Plt Count (150-450) K/mm3 MPV (7.5-11.0) fl Segmented Neutrophils (36.0-66.0) % Lymphocytes (Manual) (24-44) % Monocytes (Manual) (0.0-12.0) % Platelet Estimate (NORMAL) RBC Morphology Sodium (137-145) mmol/L Potassium 2.9 L* (3.5-5.1) mmol/L Chloride (98-107) mmol/L Carbon Dioxide (22-30) mmol/L Anion Gap (5-15) MEQ/L BUN (7-17) mg/dL Creatinine (0.52-1.04) mg/dL Estimated GFR ML/MIN Glucose (74-106) mg/dL Calcium (8.4-10.2) mg/dL Radiology Exams: Radiology Procedures Category Date Time Status CHEST 1 VIEW (PORTABLE) Routine Exams 06/19/21 06:00 Completed Multi-Disciplinary Progress Notes: Multi-Disciplinary Progress Notes 06/20/21 11:27 Case Management Note by Pavithra Hanson RECEIVED CALL BACK FROM FAMILY- THEY WOULD LIKE PATIENT TO GO TO [facility] AT TIME OF DC. S/W PATIENT ABOUT THIS- SHE IS ALSO AGREEABLE TO THIS PLAN. REFERRAL FAXED TO [facility] AT THIS TIME. THEY WILL DO PATIENT'S PASRR ONCE PATIENT AT FACILITY Initialized on 06/20/21 11:27 - END OF NOTE 06/20/21 10:31 Case Management Note by Pavithra Hanson S/W SON CAITLYN WHOM PATIENT LIVES WITH. HE WAS NOTIFIED OF CONFUSION AT NIGHT AND UNSTEADINESS ON FEET. PATIENT LIKELY REQUIRING ASSISTANCE AT HOME WITH AMBULATION AT TIME OF DC. PATIENT AGREEABLE TO C BUT THEY WON'T BE THERE 24 HRS. FAMILY HAS CONSIDERED NH PLACEMENT IN THE PAST. CAITLYN WILL DISCUSS WITH HIS AND BROTHER ON WHAT WOULD BE THE SAFEST DC PLAN FOR PATIENT. HE WILL LET US KNOW WHEN THEY HAVE DECIDED ON A PLAN Initialized on 06/20/21 10:31 - END OF NOTE Assessment/Plan (1) Altered mental status Current Visit: Yes Status: Resolved Qualifiers: Altered mental status type: transient alteration of awareness Qualified Code(s): R40.4 - Transient alteration of awareness Code(s): R41.82 - ALTERED MENTAL STATUS, UNSPECIFIED (2) Influenza B Current Visit: Yes Status: Acute Assessment & Plan: improving overall Code(s): J10.1 - FLU DUE TO OTH IDENT INFLUENZA VIRUS W OTH RESP MANIFEST (3) Pneumonia Current Visit: Yes Status: Acute Qualifiers: Pneumonia type: due to unspecified organism Laterality: right Lung location: unspecified part of lung Qualified Code(s): J18.9 - Pneumonia, unspecified organism Assessment & Plan: sputum pending, WBC wnl is on Zithromax and Rocephin. Code(s): J18.9 - PNEUMONIA, UNSPECIFIED ORGANISM (4) Hypokalemia Current Visit: Yes Status: Acute Code(s): E87.6 - HYPOKALEMIA
[2021-06-20] MEDS: ADVAIR/WIXELLA 250-50 DISKUS 14 DOSE IH SCH (19:56)
[2021-06-20] MEDS: ZOCOR 20MG PO SCH (21:27)
[2021-06-21 04:54] LABS: Hemoglobin 12.5 gm/dl (12.0-16.0); Mean Cell Volume 94.5 fl (78-100); Mean Corpuscular Hemoglobin 31.1 pg (26-32); Mean Corpuscular Hgb Concent. 32.9 g/dl (32-36); Mean Platelet Volume 10.3 fl (7.5-11.0); Platelet Count 255 K/mm3 (150-450); Red Blood Count 4.02 M/mm3 (4.1-5.4); Red Cell Distribution Width 13.2 % (11.5-14.0); White Blood Count 4.7 K/mm3 (4.0-10.5)
[2021-06-21] MEDS: Sodium Chloride 0.9% 10 ML FLUSH Syringe IV SCH ×3 (05:04→20:54)
[2021-06-21 05:12] LABS: ANION GAP 10.8 MEQ/L (5-15); BLOOD UREA NITROGEN 20 mg/dL (7-17); CHLORIDE 91 mmol/L (98-107); Calcium 7.7 mg/dL (8.4-10.2); Carbon Dioxide 37 mmol/L (22-30); Creatinine 1 0.55 mg/dL (0.52-1.04); EST GLOMERULAR FILTRATION RATE > 60.0 ML/MIN; Glucose 190 mg/dL (74-106); SODIUM 136 mmol/L (137-145)
[2021-06-21 05:42] LABS: Potassium 2.6 mmol/L (3.5-5.1)
[2021-06-21 05:44] LABS: Lymphocytes 21 % (24-44); Monocyte 4 % (0.0-12.0); Neutrophils 75 % (36.0-66.0); Platelet Estimate NORMAL (NORMAL); Total Cells Counted 100
[2021-06-21] MEDS: Klor Con 10 MEQ PO ONE ×2 (06:11→07:01)
[2021-06-21] MEDS ORDERED: Klor Con 10 MEQ PO ONE ×2 (06:59→15:51)
[2021-06-21] MEDS: ADVAIR/WIXELLA 250-50 DISKUS 14 DOSE IH SCH ×2 (07:16→19:03)
[2021-06-21] MEDS ORDERED: Potassium Chloride 20 MEQ INJECTION 20 MEQ, XYLOCAINE 1% HCL 20 ML MDV*** 2 ML in Sodiu... IV SCH (07:30)
[2021-06-21] MEDS ORDERED: PHARMACY DOSING REQUEST MC ONE (07:33)
[2021-06-21] MEDS: solu-MEDROL 40 MG, Sterile H2O 10 ml 2 ML IV SCH ×6 (07:50→20:53)
[2021-06-21 07:58] LABS: TSH, 3RD Generation 0.076 mIU/L (0.47-4.68)
[2021-06-21] MEDS ORDERED: POTASSIUM CHLORIDE IV SCH ×4 (08:00)
[2021-06-21] MEDS ORDERED: [UNRECOGNIZED DRUG - OTHER] IV SCH ×4 (08:00)
[2021-06-21] MEDS ORDERED: XYLOCAINE 1% IV SCH ×4 (08:00)
[2021-06-21] MEDS: Advair Hfa 115/21 Common canister IH SCH (08:06)
[2021-06-21] MEDS: Aldactone 25 MG PO SCH ×2 (08:20→08:40)
[2021-06-21] MEDS: Pepcid 20 MG PO SCH ×2 (08:33→20:53)
[2021-06-21] MEDS: Bystolic 5 MG PO SCH ×2 (08:33→20:52)
[2021-06-21] MEDS: Protonix 40MG Tablet PO SCH (08:33)
[2021-06-21] MEDS: ANTIVERT 25 MG PO SCH (08:34)
[2021-06-21] MEDS: Ranexa 500 MG PO SCH (08:34)
[2021-06-21] MEDS: Calcium 500MG W/Vit D Tablet PO SCH (08:34)
[2021-06-21] MEDS: ENOXAPARIN SODIUM SQ SCH (08:34)
[2021-06-21] MEDS: MUCINEX DM 600/30MG PO SCH ×2 (08:34→20:52)
[2021-06-21] MEDS: hydroDIURIL 25 MG PO SCH (08:34)
[2021-06-21] MEDS: ROCEPHIN 1 Gm-D5w 50 ml Bag** 1 G/50 ML IVPB IV SCH (08:40)
[2021-06-21] MEDS: Zithromax 500 MG/ 250 ML NaCl Premix 500 MG/250 ML IVPB IV SCH (09:34)
[2021-06-21] MEDS ORDERED: POTASSIUM CHLORIDE 20 mEq IN WATER 100ML 20 MEQ/100 ML BAG IV ONE (15:51)
[2021-06-21] MEDS: TYLENOL 325 MG PO PRN (17:14)
--- NOTE | 2021-06-21 17:59 | PCM.NOTE ---
Date and Time: 06/21/211753 Objective Exam General Appearance: no apparent distress Neurologic Exam: alert, oriented x 3 Skin Exam: warm, dry, other (flushed) Ears, Nose, Throat Exam: other (no nasal congestion) Neck Exam: normal inspection Respiratory Exam: rhonchi (mid bilateral), wheezing (fine eew mid bilateral) Cardiovascular Exam: regular rate/rhythm Gastrointestinal/Abdomen Exam: soft (nontender) Extremity Exam: other (no edema) OBJECTIVE DATA Vital Signs: Vital Signs - 24 hr Temp Pulse Resp BP Pulse Ox 06/21/21 16:00 98 F 79 18 96 06/21/21 11:56 98 F 82 18 133/69 96 06/21/21 08:22 84 18 93 L 06/21/21 07:29 97.7 F 77 17 140/67 94 L 06/21/21 03:45 98.8 F 66 17 140/66 96 06/20/21 23:44 92 L 06/20/21 23:28 98.3 F 62 20 140/65 92 L 06/20/21 20:04 60 18 96 06/20/21 20:00 98.0 F 58 L 18 136/48 95 Pain Assessment - Last Documented Pain Intensity 0 Pain Scale Used 0-10 Pain Scale Intake and Output: Intake & Output 06/19/21 06/20/21 06/21/21 06/22/21 11:59 11:59 11:59 11:59 Intake Total 240 5921 1170 960 Output Total 3000 1900 900 Balance -2760 4021 270 960 Weight 96.797 kg 97.4 kg 93.6 kg 93.6 kg Lab Results: Lab Results-Last 24 Hours 06/21/21 06/21/21 06/21/21 Range/Units 04:20 04:20 04:20 WBC 4.7 (4.0-10.5) K/mm3 RBC 4.02 L (4.1-5.4) M/mm3 Hgb 12.5 (12.0-16.0) gm/dl Hct 38.0 (35-47) % MCV 94.5 (78-100) fl MCH 31.1 (26-32) pg MCHC 32.9 (32-36) g/dl RDW 13.2 (11.5-14.0) % Plt Count 255 (150-450) K/mm3 MPV 10.3 (7.5-11.0) fl Segmented Neutrophils 75 H (36.0-66.0) % Lymphocytes (Manual) 21 L (24-44) % Monocytes (Manual) 4 (0.0-12.0) % Platelet Estimate NORMAL (NORMAL) RBC Morphology NORMAL Sodium 136 L (137-145) mmol/L Potassium 2.6 L* (3.5-5.1) mmol/L Chloride 91 L (98-107) mmol/L Carbon Dioxide 37 H (22-30) mmol/L Anion Gap 10.8 (5-15) MEQ/L BUN 20 H (7-17) mg/dL Creatinine 0.55 (0.52-1.04) mg/dL Estimated GFR > 60.0 ML/MIN Glucose 190 H (74-106) mg/dL Hemoglobin A1c 5.84 (4.5-6.0) % Calcium 7.7 L (8.4-10.2) mg/dL Magnesium (1.6-2.3) mg/dL Vitamin B12 (239-931) pg/mL 25-OH Vitamin D Total (30-100) ng/mL TSH 3rd Generation (0.47-4.68) mIU/L 06/21/21 06/21/21 06/21/21 Range/Units 04:20 04:20 04:30 WBC (4.0-10.5) K/mm3 RBC (4.1-5.4) M/mm3 Hgb (12.0-16.0) gm/dl Hct (35-47) % MCV (78-100) fl MCH (26-32) pg MCHC (32-36) g/dl RDW (11.5-14.0) % Plt Count (150-450) K/mm3 MPV (7.5-11.0) fl Segmented Neutrophils (36.0-66.0) % Lymphocytes (Manual) (24-44) % Monocytes (Manual) (0.0-12.0) % Platelet Estimate (NORMAL) RBC Morphology Sodium (137-145) mmol/L Potassium (3.5-5.1) mmol/L Chloride (98-107) mmol/L Carbon Dioxide (22-30) mmol/L Anion Gap (5-15) MEQ/L BUN (7-17) mg/dL Creatinine (0.52-1.04) mg/dL Estimated GFR ML/MIN Glucose (74-106) mg/dL Hemoglobin A1c (4.5-6.0) % Calcium (8.4-10.2) mg/dL Magnesium 1.6 (1.6-2.3) mg/dL Vitamin B12 628 (239-931) pg/mL 25-OH Vitamin D Total < 12.8 L (30-100) ng/mL TSH 3rd Generation 0.076 L (0.47-4.68) mIU/L 06/21/21 Range/Units 13:45 WBC (4.0-10.5) K/mm3 RBC (4.1-5.4) M/mm3 Hgb (12.0-16.0) gm/dl Hct (35-47) % MCV (78-100) fl MCH (26-32) pg MCHC (32-36) g/dl RDW (11.5-14.0) % Plt Count (150-450) K/mm3 MPV (7.5-11.0) fl Segmented Neutrophils (36.0-66.0) % Lymphocytes (Manual) (24-44) % Monocytes (Manual) (0.0-12.0) % Platelet Estimate (NORMAL) RBC Morphology Sodium (137-145) mmol/L Potassium 2.8 L* (3.5-5.1) mmol/L Chloride (98-107) mmol/L Carbon Dioxide (22-30) mmol/L Anion Gap (5-15) MEQ/L BUN (7-17) mg/dL Creatinine (0.52-1.04) mg/dL Estimated GFR ML/MIN Glucose (74-106) mg/dL Hemoglobin A1c (4.5-6.0) % Calcium (8.4-10.2) mg/dL Magnesium (1.6-2.3) mg/dL Vitamin B12 (239-931) pg/mL 25-OH Vitamin D Total (30-100) ng/mL TSH 3rd Generation (0.47-4.68) mIU/L Multi-Disciplinary Progress Notes: Multi-Disciplinary Progress Notes 06/21/21 13:44 Physical Therapy Note by Vandana Tucker PT. REPORTS STILL COUGHING FREQUENTLY BUT STATES NOT ABLE TO COUGH UP MUCUS. C/O PN IN UPPER CHEST AT TIMES. IN CHAIR UPON P.T. ARRIVAL TO ROOM. PERFORMED 10-15 REPS LE EX'S IN CHAIR OF HEEL SLIDES, ANKLE PUMPS, QUAD AND GLUT SETS. ALSO PERFORMED LAQS AND ANF MARCHES X 10 REPS. 02 SATS RANGED FROM 91-95% ON 4 L O2. WORKE DON PURSED LIP BREATHING PATTERN PT. IS HAVING DIFFICULTY W/ THIS AND TENDS TO GULP AIR THROUGH HER MOUTH. SHE REPORTS THAT PN INCREASES IN CHAEST W/ NASAL INSPIRATION. SIT TO STAND CGA-SBA. PT. AMBULATED ~ 20' X 2 TO COMMODE W/ SW AND CGA-SBA. O2 SATS 87% ON 4L O2 AFTER WALKING. PT.'S SATS INCREASED TO 91% AFTER SITTING ON COMMODE. CARDIOPULMONARY ENDURANCE LIMITED AT THIS TIME; PT. DID COUGH SEVERAL TIMES DURING SESSION. WOULD BENEFIT FROM [facility] REHAB AT [facility] WHEN ABLE TO D/C. Addendum entered and electronically signed by Vandana Tucker, PT 06/21/21 16:13: TIME IN 10:10; TIME OUT 10:40 Initialized on 06/21/21 13:44 - END OF NOTE 06/21/21 10:59 Case Management Note by Pavithra Hanson HAS ACCEPTED PATIENT BUT ARE UNABLE TO TAKE HER UNTIL THURSDAY. FAMILY UPDATED. THEY ARE ALSO AWARE THAT PATIENT MAY NEED TO SWING OVER THE WEEKEND IF NOT MEETING MEDICAL CRITERIA TO STILL BE HERE. THEY VERIFIED UNDERSTANDING AND GAVE VERBAL CONSENT FOR THAT. Initialized on 06/21/21 10:59 - END OF NOTE Assessment/Plan (1) Altered mental status Current Visit: Yes Status: Resolved Qualifiers: Altered mental status type: transient alteration of awareness Qualified Code(s): R40.4 - Transient alteration of awareness Assessment & Plan: normal mentation Code(s): R41.82 - ALTERED MENTAL STATUS, UNSPECIFIED (2) Influenza B Current Visit: Yes Status: Acute Assessment & Plan: clinically improving Code(s): J10.1 - FLU DUE TO OTH IDENT INFLUENZA VIRUS W OTH RESP MANIFEST (3) Pneumonia Current Visit: Yes Status: Acute Qualifiers: Pneumonia type: due to unspecified organism Laterality: right Lung location: unspecified part of lung Qualified Code(s): J18.9 - Pneumonia, unspecified organism Assessment & Plan: sputum growing gram positive and gram negative and yeast. Stopped Zithromax - had 5 days. Started Diflucan, await ID/sens .Wheezing a little since lowered Solumedrol to 40mg. Continue Neb txs. Code(s): J18.9 - PNEUMONIA, UNSPECIFIED ORGANISM (4) Hypokalemia Current Visit: Yes Status: Resolved Assessment & Plan: Started Spironalactone 50mg,3rd dose today,is stil on HCTZ. Received K-rider and Kdur today.Monitor. Code(s): E87.6 - HYPOKALEMIA (5) Vitamin D deficiency Current Visit: Yes Status: Acute Assessment & Plan: start vitamin D Code(s): E55.9 - VITAMIN D DEFICIENCY, UNSPECIFIED
[2021-06-21] MEDS ORDERED: K-LYTE 25 MEQ PO ONE (18:19)
[2021-06-21] MEDS ORDERED: Diflucan 100 MG ONE (20:51)
[2021-06-21] MEDS: ZOCOR 20MG PO SCH (20:53)
[2021-06-21] MEDS: Klor Con 10 MEQ PO SCH (20:55)
[2021-06-21] MEDS: Sodium Chloride 0.9% 1000 ML 1,000 ML IV SCH (21:03)
[2021-06-21] MEDS ORDERED: DIFLUCAN PO SCH (22:00)
[2021-06-22] MEDS: Sodium Chloride 0.9% 10 ML FLUSH Syringe IV SCH ×3 (06:00→21:25)
[2021-06-22 06:58] LABS: Hematocrit 37.4 % (35-47); Hemoglobin 12.3 gm/dl (12.0-16.0); Mean Cell Volume 95.7 fl (78-100); Mean Corpuscular Hemoglobin 31.5 pg (26-32); Mean Corpuscular Hgb Concent. 32.9 g/dl (32-36); Mean Platelet Volume 10.5 fl (7.5-11.0); Platelet Count 274 K/mm3 (150-450); Red Blood Count 3.91 M/mm3 (4.1-5.4); Red Cell Distribution Width 13.1 % (11.5-14.0); White Blood Count 4.7 K/mm3 (4.0-10.5)
[2021-06-22 07:10] LABS: ALBUMIN 3.2 g/dL (3.5-5.0); ALKALINE PHOSPHATASE 55 U/L (38-126); ANION GAP 11.1 MEQ/L (5-15); BLOOD UREA NITROGEN 19 mg/dL (7-17); CHLORIDE 98 mmol/L (98-107); Calcium 7.8 mg/dL (8.4-10.2); Carbon Dioxide 31 mmol/L (22-30); Creatinine 1 0.57 mg/dL (0.52-1.04); EST GLOMERULAR FILTRATION RATE > 60.0 ML/MIN; Glucose 187 mg/dL (74-106); MAGNESIUM 2.2 mg/dL (1.6-2.3); Potassium 3.7 mmol/L (3.5-5.1); SGOT/AST 38 U/L (14-36); SGPT/ALT 31 U/L (0-35); SODIUM 136 mmol/L (137-145); Total Protein 6.5 g/dL (6.3-8.2)
[2021-06-22] MEDS: ADVAIR/WIXELLA 250-50 DISKUS 14 DOSE IH SCH ×2 (07:31→19:01)
[2021-06-22 08:04] LABS: Lymphocytes 9 % (24-44); Monocyte 4 % (0.0-12.0); Neutrophils 87 % (36.0-66.0); Platelet Estimate NORMAL (NORMAL); Total Cells Counted 100
[2021-06-22] MEDS: Protonix 40MG Tablet PO SCH (09:27)
[2021-06-22] MEDS: Ranexa 500 MG PO SCH (09:27)
[2021-06-22] MEDS: VITAMIN D PO SCH (09:27)
[2021-06-22] MEDS: Klor Con 10 MEQ PO SCH ×2 (09:27→21:23)
[2021-06-22] MEDS: Bystolic 5 MG PO SCH ×2 (09:27→21:24)
[2021-06-22] MEDS: MAG-OX 400 PO SCH (09:27)
[2021-06-22] MEDS: Aldactone 25 MG PO SCH (09:27)
[2021-06-22] MEDS: ANTIVERT 25 MG PO SCH (09:27)
[2021-06-22] MEDS: Calcium 500MG W/Vit D Tablet PO SCH (09:27)
[2021-06-22] MEDS: Diflucan 100 MG PO SCH (09:27)
[2021-06-22] MEDS: ENOXAPARIN SODIUM SQ SCH (09:27)
[2021-06-22] MEDS: MUCINEX DM 600/30MG PO SCH ×2 (09:27→21:23)
[2021-06-22] MEDS: ROCEPHIN 1 Gm-D5w 50 ml Bag** 1 G/50 ML IVPB IV SCH (09:28)
[2021-06-22] MEDS: hydroDIURIL 25 MG PO SCH (09:28)
[2021-06-22] MEDS: Pepcid 20 MG PO SCH ×2 (09:28→21:23)
[2021-06-22] MEDS: solu-MEDROL IV SCH ×2 (09:29→21:24)
[2021-06-22] MEDS: Sterile H2O 10 ml IJ SCH ×2 (09:29→21:24)
--- NOTE | 2021-06-22 14:29 | PCM.NOTE ---
Date and Time: 06/22/21 1424 Subjective Assessment: Pt is up to bathroom with 1 assist when I enter the room. Says there is no change in her breathing. Is having cough productive of green sputum. Tolerating po fine. Having IBARRA. - Review of Systems Constitutional: No Fever Respiratory: Cough, Short Of Breath Objective Exam General Appearance: mild distress (quite SOB when walking), other (walks with walker and 1 assist) Neurologic Exam: alert, oriented x 3, cooperative Skin Exam: normal color, warm, dry, No rash Eye Exam: eyes nml inspection Ears, Nose, Throat Exam: moist mucous membranes Neck Exam: normal inspection Respiratory Exam: normal breath sounds, No respiratory distress Cardiovascular Exam: regular rate/rhythm, normal heart sounds, No murmur Gastrointestinal/Abdomen Exam: soft, normal bowel sounds, No tenderness Extremity Exam: normal inspection, No pedal edema, No swelling OBJECTIVE DATA Vital Signs: Vital Signs - 24 hr Temp Pulse Resp BP BP Pulse Ox 06/22/21 11:05 97.4 F 65 18 180/76 93 L 06/22/21 07:40 99 F 68 17 141/63 92 L 06/22/21 07:00 62 20 92 L 06/22/21 04:07 98.0 F 62 20 122/58 92 L 06/21/21 23:36 98.1 F 68 20 122/59 93 L 06/21/21 19:16 97.9 F 72 20 118/53 95 06/21/21 19:05 68 20 96 06/21/21 16:00 98 F 79 18 96 Pain Assessment - Last Documented Pain Intensity 0 Pain Scale Used 0-10 Pain Scale Intake and Output: Intake & Output 06/20/21 06/21/21 06/22/21 06/23/21 11:59 11:59 11:59 11:59 Intake Total 5921 1170 2470 Output Total 1900 900 Balance 4021 270 2470 Weight 97.4 kg 93.6 kg 93.6 kg Lab Results: Lab Results-Last 24 Hours 06/21/21 06/21/21 06/22/21 Range/Units 13:45 20:22 05:26 WBC 4.7 (4.0-10.5) K/mm3 RBC 3.91 L (4.1-5.4) M/mm3 Hgb 12.3 (12.0-16.0) gm/dl Hct 37.4 (35-47) % MCV 95.7 (78-100) fl MCH 31.5 (26-32) pg MCHC 32.9 (32-36) g/dl RDW 13.1 (11.5-14.0) % Plt Count 274 (150-450) K/mm3 MPV 10.5 (7.5-11.0) fl Segmented Neutrophils 87 H (36.0-66.0) % Lymphocytes (Manual) 9 L (24-44) % Monocytes (Manual) 4 (0.0-12.0) % Platelet Estimate NORMAL (NORMAL) RBC Morphology NORMAL Sodium (137-145) mmol/L Potassium 2.8 L* 3.6 D (3.5-5.1) mmol/L Chloride (98-107) mmol/L Carbon Dioxide (22-30) mmol/L Anion Gap (5-15) MEQ/L BUN (7-17) mg/dL Creatinine (0.52-1.04) mg/dL Estimated GFR ML/MIN Glucose (74-106) mg/dL Calcium (8.4-10.2) mg/dL Magnesium (1.6-2.3) mg/dL Total Bilirubin (0.2-1.3) mg/dL AST (14-36) U/L ALT (0-35) U/L Alkaline Phosphatase (38-126) U/L Serum Total Protein (6.3-8.2) g/dL Albumin (3.5-5.0) g/dL 06/22/21 Range/Units 05:26 WBC (4.0-10.5) K/mm3 RBC (4.1-5.4) M/mm3 Hgb (12.0-16.0) gm/dl Hct (35-47) % MCV (78-100) fl MCH (26-32) pg MCHC (32-36) g/dl RDW (11.5-14.0) % Plt Count (150-450) K/mm3 MPV (7.5-11.0) fl Segmented Neutrophils (36.0-66.0) % Lymphocytes (Manual) (24-44) % Monocytes (Manual) (0.0-12.0) % Platelet Estimate (NORMAL) RBC Morphology Sodium 136 L (137-145) mmol/L Potassium 3.7 (3.5-5.1) mmol/L Chloride 98 (98-107) mmol/L Carbon Dioxide 31 H (22-30) mmol/L Anion Gap 11.1 (5-15) MEQ/L BUN 19 H (7-17) mg/dL Creatinine 0.57 (0.52-1.04) mg/dL Estimated GFR > 60.0 ML/MIN Glucose 187 H (74-106) mg/dL Calcium 7.8 L (8.4-10.2) mg/dL Magnesium 2.2 (1.6-2.3) mg/dL Total Bilirubin 0.50 (0.2-1.3) mg/dL AST 38 H (14-36) U/L ALT 31 (0-35) U/L Alkaline Phosphatase 55 (38-126) U/L Serum Total Protein 6.5 (6.3-8.2) g/dL Albumin 3.2 L (3.5-5.0) g/dL Assessment/Plan (1) Pneumonia Current Visit: Yes Status: Acute Qualifiers: Pneumonia type: due to unspecified organism Laterality: right Lung location: unspecified part of lung Qualified Code(s): J18.9 - Pneumonia, unspecified organism Assessment & Plan: Continue antibiotics; sputum culture is pending. Code(s): J18.9 - PNEUMONIA, UNSPECIFIED ORGANISM (2) Hypokalemia Current Visit: Yes Status: Resolved Code(s): E87.6 - HYPOKALEMIA (3) Influenza B Current Visit: Yes Status: Acute Code(s): J10.1 - FLU DUE TO OTH IDENT INFLUENZA VIRUS W OTH RESP MANIFEST (4) Altered mental status Current Visit: Yes Status: Resolved Qualifiers: Altered mental status type: transient alteration of awareness Qualified Code(s): R40.4 - Transient alteration of awareness Code(s): R41.82 - ALTERED MENTAL STATUS, UNSPECIFIED
[2021-06-22] MEDS: Sodium Chloride 0.9% 1000 ML 1,000 ML IV SCH (14:31)
[2021-06-22] MEDS: ZOCOR 20MG PO SCH (21:23)
[2021-06-23] MEDS: Sodium Chloride 0.9% 10 ML FLUSH Syringe IV SCH ×2 (05:34→14:41)
[2021-06-23 07:10] LABS: Hematocrit 37.8 % (35-47); Hemoglobin 12.4 gm/dl (12.0-16.0); Mean Cell Volume 95.7 fl (78-100); Mean Corpuscular Hemoglobin 31.4 pg (26-32); Mean Corpuscular Hgb Concent. 32.8 g/dl (32-36); Mean Platelet Volume 10.6 fl (7.5-11.0); Platelet Count 294 K/mm3 (150-450); Red Blood Count 3.95 M/mm3 (4.1-5.4); Red Cell Distribution Width 13.3 % (11.5-14.0)
[2021-06-23] MEDS: ADVAIR/WIXELLA 250-50 DISKUS 14 DOSE IH SCH (07:30)
[2021-06-23 07:38] LABS: ALBUMIN 3.1 g/dL (3.5-5.0); ALKALINE PHOSPHATASE 56 U/L (38-126); ANION GAP 12.1 MEQ/L (5-15); BLOOD UREA NITROGEN 20 mg/dL (7-17); CHLORIDE 98 mmol/L (98-107); Carbon Dioxide 29 mmol/L (22-30); Creatinine 1 0.62 mg/dL (0.52-1.04); EST GLOMERULAR FILTRATION RATE > 60.0 ML/MIN; Glucose 174 mg/dL (74-106); MAGNESIUM 2.1 mg/dL (1.6-2.3); SGOT/AST 27 U/L (14-36); SGPT/ALT 31 U/L (0-35); SODIUM 135 mmol/L (137-145); Total Protein 6.4 g/dL (6.3-8.2)
[2021-06-23 09:21] VITALS: O2SAT 94
--- NOTE | 2021-06-23 09:48 | PCM.NOTE ---
Date and Time: 06/23/21942 Subjective Assessment: Pt c/o not feeling well today. Her O2 is on 3L per NC (has been on 3L for several days; prior to that was on 4L NC - no O2 requirement prior to admission). Having cough that is non-productive. She is tolerating po. Up with walker and 1 assist. - Review of Systems Constitutional: No Fever Respiratory: Cough, Short Of Breath Objective Exam General Appearance: mild distress (dyspneic after going to bathroom), alert Neurologic Exam: oriented x 3, cooperative Skin Exam: normal color, warm, dry, No rash Eye Exam: eyes nml inspection Ears, Nose, Throat Exam: moist mucous membranes Respiratory Exam: normal breath sounds, lungs clear, No crackles/rales, No rhonchi, No wheezing Cardiovascular Exam: regular rate/rhythm, normal heart sounds, No murmur Gastrointestinal/Abdomen Exam: soft, normal bowel sounds, No tenderness, No distention, No mass, No guarding, No rebound Extremity Exam: normal inspection, No pedal edema, No swelling Back Exam: normal inspection, No rash OBJECTIVE DATA Vital Signs: Vital Signs - 24 hr Temp Pulse Resp BP Pulse Ox 06/23/21 09:19 60 20 94 L 06/23/21 07:36 97.2 F 61 20 159/70 92 L 06/23/21 04:00 97.6 F 75 20 113/55 92 L 06/23/21 00:04 97.4 F 72 20 131/62 94 L 06/22/21 19:30 97.0 F 55 L 20 149/70 96 06/22/21 19:01 65 20 94 L 06/22/21 16:00 97.9 F 64 20 178/75 94 L 06/22/21 11:05 97.4 F 65 18 180/76 93 L Pain Assessment - Last Documented Pain Intensity 0 Pain Scale Used 0-10 Pain Scale Intake and Output: Intake & Output 06/20/21 06/21/21 06/22/21 06/23/21 11:59 11:59 11:59 11:59 Intake Total 5921 1170 2470 1380 Output Total 1900 900 Balance 4021 270 2470 1380 Weight 97.4 kg 93.6 kg 93.6 kg Lab Results: Lab Results-Last 24 Hours 06/23/21 06/23/21 Range/Units 05:27 05:27 WBC 9.0 (4.0-10.5) K/mm3 RBC 3.95 L (4.1-5.4) M/mm3 Hgb 12.4 (12.0-16.0) gm/dl Hct 37.8 (35-47) % MCV 95.7 (78-100) fl MCH 31.4 (26-32) pg MCHC 32.8 (32-36) g/dl RDW 13.3 (11.5-14.0) % Plt Count 294 (150-450) K/mm3 MPV 10.6 (7.5-11.0) fl Sodium 135 L (137-145) mmol/L Potassium 4.0 (3.5-5.1) mmol/L Chloride 98 (98-107) mmol/L Carbon Dioxide 29 (22-30) mmol/L Anion Gap 12.1 (5-15) MEQ/L BUN 20 H (7-17) mg/dL Creatinine 0.62 (0.52-1.04) mg/dL Estimated GFR > 60.0 ML/MIN Glucose 174 H (74-106) mg/dL Calcium 8.0 L (8.4-10.2) mg/dL Magnesium 2.1 (1.6-2.3) mg/dL Total Bilirubin 0.40 (0.2-1.3) mg/dL AST 27 (14-36) U/L ALT 31 (0-35) U/L Alkaline Phosphatase 56 (38-126) U/L Serum Total Protein 6.4 (6.3-8.2) g/dL Albumin 3.1 L (3.5-5.0) g/dL Radiology Exams: Radiology Procedures Category Date Time Status CHEST 2 VIEWS (PA AND LAT) Urgent Exams 06/23/21 Ordered Assessment/Plan (1) Pneumonia Current Visit: Yes Status: Acute Qualifiers: Pneumonia type: due to unspecified organism Laterality: right Lung location: unspecified part of lung Qualified Code(s): J18.9 - Pneumonia, unspecified organism Assessment & Plan: Sputum C&S still pending. She is on rocephin IV day #7. Repeat CXR - if PNA is persistent, may change antibiotic from rocephin to zosyn. She has been stable; if CXR is neg will likely discharge her to [facility] bed today. Code(s): J18.9 - PNEUMONIA, UNSPECIFIED ORGANISM (2) Influenza B Current Visit: Yes Status: Acute Code(s): J10.1 - FLU DUE TO OTH IDENT INFLUENZA VIRUS W OTH RESP MANIFEST (3) HTN (hypertension) Current Visit: Yes Status: Chronic Qualifiers: Hypertension type: primary hypertension Qualified Code(s): I10 - Essential (primary) hypertension Code(s): I10 - ESSENTIAL (PRIMARY) HYPERTENSION (4) Hyperlipidemia Current Visit: Yes Status: Chronic Qualifiers: Hyperlipidemia type: unspecified Qualified Code(s): E78.5 - Hyperlipidemia, unspecified Code(s): E78.5 - HYPERLIPIDEMIA, UNSPECIFIED (5) CAD (coronary artery disease) Current Visit: Yes Status: Chronic Qualifiers: [place] vs. transplanted heart: [place] heart Associated angina: without angina Code(s): I25.10 - ATHSCL HEART DISEASE OF [place] CORONARY ARTERY W/O ANG PCTRS
[2021-06-23 10:06] LABS: BAND 1 % (0.0-2.0); Lymphocytes 12 % (24-44); Monocyte 5 % (0.0-12.0); Neutrophils 82 % (36.0-66.0); Platelet Estimate NORMAL (NORMAL); Total Cells Counted 100
[2021-06-23] MEDS: VITAMIN D PO SCH (10:55)
[2021-06-23] MEDS: MAG-OX 400 PO SCH (10:55)
[2021-06-23] MEDS: Diflucan 100 MG PO SCH (10:55)
[2021-06-23] MEDS: Calcium 500MG W/Vit D Tablet PO SCH (10:55)
[2021-06-23] MEDS: Ranexa 500 MG PO SCH (10:55)
[2021-06-23] MEDS: Aldactone 25 MG PO SCH (10:55)
[2021-06-23] MEDS: Protonix 40MG Tablet PO SCH (10:55)
[2021-06-23] MEDS: hydroDIURIL 25 MG PO SCH (10:56)
[2021-06-23] MEDS: Pepcid 20 MG PO SCH (10:57)
[2021-06-23] MEDS: Klor Con 10 MEQ PO SCH (10:57)
[2021-06-23] MEDS: ANTIVERT 25 MG PO SCH (10:57)
[2021-06-23] MEDS: ENOXAPARIN SODIUM SQ SCH (10:57)
[2021-06-23] MEDS: MUCINEX DM 600/30MG PO SCH (10:57)
[2021-06-23] MEDS: solu-MEDROL IV SCH (10:58)
[2021-06-23] MEDS: Sterile H2O 10 ml IJ SCH (10:59)
[2021-06-23] MEDS: Bystolic 5 MG PO SCH (11:01)
[2021-06-23 11:22] VITALS: BP 158/69; PULSE 61
--- NOTE | 2021-06-23 21:03 | XRAY ---
Indication: Pneumonia. Acute mental status change. Comparison: June 19, 2021. PA/Lateral chest demonstrates mild improving right hilar infiltrate and clearing right effusion. Mild right middle & left lower lobe atelectasis/scarring. Remaining heart and lungs unremarkable. Comment: Preliminary interpretation made by [facility]. No critical discrepancy.
--- NOTE | 2021-06-24 18:14 | PCM.DS ---
Discharge Summary Date of Admission: 06/17/21 08:00 Admitting Physician: JHONATHAN PEDERSEN DO Primary Care Provider: MALINI FRY Allergies Allergies acetaminophen [From Darvocet-N] Allergy (Mild, Verified 06/17/21 14:59) UNABLE TO VERIFY ALLERGIES propoxyphene [From Darvocet-N] Allergy (Mild, Verified 06/17/21 14:59) UNABLE TO VERIFY ALLERGIES sucralfate [From Carafate] Allergy (Mild, Verified 06/17/21 14:59) UNABLE TO VERIFY ALLERGIES Hospital Summary - Hospital Course Hospital Course: Pt is 69 yo female pt who was admitted through ER with AMS; head CT was nonacute (bah sinusitis) and pt was found to have PNA and influenza B. CXR showed R sided hazy airspace dz. She recovered normal mentation quickly. Was on 4L O2 per NC initially then down to 3L NC. On admission 06/17/21 she was placed on rocephin and zithromax; she completed 5d of zithromax and 7d of rocephin. Up with walker and 1 assist. Had hypokalemia which was repleted. Repeat CXR on her day of discharge showed improvement. - Vitals & Intake/Output Vital Signs: Vital Signs Temperature 96.9 F 06/23/21 11:21 Pulse Rate 61 06/23/21 11:21 Respiratory Rate 16 06/23/21 11:21 Blood Pressure 158/69 06/23/21 11:21 O2 Sat by Pulse Oximetry 94 L 06/23/21 11:21 Intake & Output: Intake & Output 06/22/21 06/23/21 06/24/21 06/25/21 11:59 11:59 11:59 11:59 Intake Total 2470 1380 Balance 2470 1380 Weight 93.6 kg - Lab Result Diagrams: 06/23/21 05:27 06/23/21 05:27 Micro Results-Entire Visit: Microbiology 06/16/21 00:20 Blood Culture Gram Stain - Final Blood Not Reportable Blood Culture - Final NO GROWTH 06/19/21 13:19 Gram Stain - Final Sputum - Aerosol Induced Sputum Culture - Final ORGANISMS ISOLATED ARE CONSISTENT WITH NORMAL RESP RANJAN MODERATE GROWTH, NO PREDOMINANT ORGANISM 06/16/21 22:23 Blood Culture Gram Stain - Final Blood Not Reportable Blood Culture - Final NO GROWTH - Radiology Exams Ordered Rad Exams-Entire Visit: Radiology Procedures Category Date Time Status CHEST 2 VIEWS (PA AND LAT) Urgent Exams 06/23/21 10:18 Completed - Procedures and Test Procedures and Tests throughout Hospitalization: Therapy Orders & Screens 06/17/21 03:48 EKG REPEAT IN AM Comment: Oxygen Nasal Cannula 4 lpm Comment: 06/18/21 20:32 Respiratory Therapy Assessment DAILY Comment: Diagnosis: AMS, INFLUENZA B, PNEUMONIA 06/19/21 13:34 Sputum Specimen Obtain .per protocol Comment: Diagnosis: Altered mental status, Infuenza B, fever, right lundg infiltrate 06/20/21 08:40 PT Eval & Treat (MD Order) ONCE Reason for Eval:: strengthening Diagnosis: Altered mental status, Infuenza B, fever, right lundg infiltrate 06/22/21 07:00 Respiratory MDI Q12H Comment: Advair 2 puffs BID Diagnosis: Altered mental status, Infuenza B, fever, right lundg infiltrate Discharge Exam General Appearance: no apparent distress, alert, obese Neurologic Exam: oriented x 3, cooperative Eye Exam: eyes nml inspection Ears, Nose, Throat Exam: moist mucous membranes Respiratory Exam: normal breath sounds, lungs clear, No crackles/rales, No rhonchi, No wheezing Cardiovascular Exam: regular rate/rhythm, normal heart sounds, No murmur Gastrointestinal/Abdomen Exam: normal bowel sounds, No tenderness Final Diagnosis/Problem List - Final Discharge Diagnosis/Problem (1) Pneumonia Status: Acute Assessment & Plan: Some improvement. Still coughing, as would be expected with influenza B. O2 requirement has improved from 4L NC to 3L NC during her stay. Code(s): J18.9 - PNEUMONIA, UNSPECIFIED ORGANISM (2) Influenza B Status: Acute Code(s): J10.1 - FLU DUE TO OTH IDENT INFLUENZA VIRUS W OTH RESP MANIFEST (3) Muscular deconditioning Status: Acute Assessment & Plan: Will need to have rehab on discharge. Code(s): R29.898 - OTH SYMPTOMS AND SIGNS INVOLVING THE MUSCULOSKELETAL SYSTEM (4) HTN (hypertension) Status: Acute Code(s): I10 - ESSENTIAL (PRIMARY) HYPERTENSION (5) Hyperlipidemia Status: Chronic Code(s): E78.5 - HYPERLIPIDEMIA, UNSPECIFIED (6) CAD (coronary artery disease) Status: Chronic Code(s): I25.10 - ATHSCL HEART DISEASE OF [place] CORONARY ARTERY W/O ANG PCTRS - Discharge Disposition: Swing Bed @ [facility] Condition: Fair Prescriptions: No Action Famotidine 40 mg PO BID Nebivolol HCl [Bystolic] 10 mg PO BID Vilazodone Hydrochloride [Viibryd] 40 mg PO DAILY Rosuvastatin Calcium 10 mg PO HS hydroCHLOROthiazide [Hydrochlorothiazide] 12.5 mg PO DAILY Ranolazine [Ranolazine ER] 1,000 mg PO DAILY Calcium Carb/Vitamin D3/Vit K1 [Calcium + D Soft Chewable Tab] 1 tab PO DAILY Methylprednisolone 4 mg PO DAILY Omeprazole 40 mg PO DAILY Meclizine HCl 25 mg [Antivert 25 mg] 25 mg PO DAILY Follow up with: MALINI FRY [Primary Care Provider] -
== END 2021-06-23 15:15 | disposition swing bed (61) | DRG 195 ==
LOC: ED 21:21 → ICU 06-17 03:34 → OBSVTOIN 06-17 08:00
PROVIDERS: ADMIT Family Medicine; ATTEND Family Medicine
DX: J18.9 Pneumonia, unspecified organism (principal); R41.82 Altered mental status, unspecified; I10 Essential (primary) hypertension; E87.6 Hypokalemia; J10.1 Influenza due to other identified influenza virus with other respiratory manifestations; R29.898 Other symptoms and signs involving the musculoskeletal system; E78.5 Hyperlipidemia, unspecified; I25.10 Atherosclerotic heart disease of native coronary artery without angina pectoris; E55.9 Vitamin D deficiency, unspecified; Z79.899 Other long term (current) drug therapy
CPT/HCPCS: 36000; 36415; 36600; 51702; 70450; 71045; 71046; 80048; 80053; 80307; 81001; 82140; 82306; 82375; 82607; 82803; 83036; 83605; 83735; 84132; 84436; 84443; 84484; 85025; 86308; 87040; 87070; 87400; 87651; 93005; 93041; 93268; 94640; 94760; 94762; 96374; 96375; 96376; 97110; 97161; 97530; 99285; 99291; G0480; U0003; J0456; J0696; J1650; J2060; J2250; J2405; J2920; J2930; J3475; J3480; J7609; A9270-GY

== ENCOUNTER 2021-06-23 14:18 | Inpatient (IN) | payer MEDICARE ==
[2021-06-23] MEDS ORDERED: Ativan 2 MG/1 ML VIAL IV PRN (15:23)
[2021-06-23] MEDS ORDERED: Sodium Chloride 0.9% 10 ML FLUSH Syringe IV PRN (15:23)
[2021-06-23] MEDS ORDERED: TYLENOL 325 MG PO PRN (15:23)
[2021-06-23] MEDS ORDERED: Aplisol ID ONE (15:23)
[2021-06-23] MEDS ORDERED: PROVENTIL 2.5 MG/3 ML NEB IH PRN (15:23)
[2021-06-23] MEDS: Sodium Chloride 0.9% 1000 ML 1,000 ML IV SCH (19:42)
[2021-06-23] MEDS: ADVAIR/WIXELLA 250-50 DISKUS 14 DOSE IH SCH (21:03)
[2021-06-23] MEDS: Pepcid 20 MG PO SCH (21:13)
[2021-06-23] MEDS: Bystolic 5 MG PO SCH (21:13)
[2021-06-23] MEDS: Sterile H2O 10 ml IJ SCH (21:13)
[2021-06-23] MEDS: ZOCOR 20MG PO SCH (21:13)
[2021-06-23] MEDS: MUCINEX DM 600/30MG PO SCH (21:13)
[2021-06-23] MEDS: solu-MEDROL 40 MG IV SCH (21:13)
[2021-06-23] MEDS: Sodium Chloride 0.9% 10 ML FLUSH Syringe IV SCH (21:14)
[2021-06-24 06:01] LABS: Hematocrit 39.8 % (35-47); Hemoglobin 13.2 gm/dl (12.0-16.0); Mean Cell Volume 95.7 fl (78-100); Mean Corpuscular Hemoglobin 31.7 pg (26-32); Mean Corpuscular Hgb Concent. 33.2 g/dl (32-36); Mean Platelet Volume 10.4 fl (7.5-11.0); Platelet Count 275 K/mm3 (150-450); Red Blood Count 4.16 M/mm3 (4.1-5.4); Red Cell Distribution Width 13.4 % (11.5-14.0); White Blood Count 7.9 K/mm3 (4.0-10.5)
[2021-06-24] MEDS: Sodium Chloride 0.9% 10 ML FLUSH Syringe IV SCH ×3 (06:05→21:45)
[2021-06-24 06:19] LABS: ALBUMIN 3.3 g/dL (3.5-5.0); ALKALINE PHOSPHATASE 54 U/L (38-126); ANION GAP 13.9 MEQ/L (5-15); BLOOD UREA NITROGEN 23 mg/dL (7-17); CHLORIDE 101 mmol/L (98-107); Calcium 8.3 mg/dL (8.4-10.2); Carbon Dioxide 26 mmol/L (22-30); Creatinine 1 0.61 mg/dL (0.52-1.04); EST GLOMERULAR FILTRATION RATE > 60.0 ML/MIN; Glucose 230 mg/dL (74-106); Potassium 4.3 mmol/L (3.5-5.1); SGOT/AST 28 U/L (14-36); SGPT/ALT 35 U/L (0-35); SODIUM 136 mmol/L (137-145); Total Protein 6.6 g/dL (6.3-8.2)
[2021-06-24 08:27] LABS: Lymphocytes 9 % (24-44); Neutrophils 91 % (36.0-66.0); Total Cells Counted 100
[2021-06-24 08:28] LABS: ANISOCYTOSIS 1+; Platelet Estimate NORMAL (NORMAL); Toxic Granulation 1+
--- NOTE | 2021-06-24 09:26 | PCM.NOTE ---
Date and Time: 06/24/21924 Subjective Assessment: doing ok - Review of Systems Constitutional: No Fever, No Chills Eyes: No Symptoms Ears, Nose, & Throat: No Symptoms Respiratory: No Cough, No Short Of Breath Cardiac: No Chest Pain, No Edema, No Syncope Abdominal/Gastrointestinal: No Abdominal Pain, No Nausea, No Vomiting, No Diarrhea Genitourinary Symptoms: No Dysuria Musculoskeletal: No Back Pain, No Neck Pain Skin: No Rash Neurological: No Dizziness, No Focal Weakness, No Sensory Changes Psychological: No Symptoms Endocrine: No Symptoms Hematologic/Lymphatic: No Symptoms Immunological/Allergic: No Symptoms Objective Exam General Appearance: no apparent distress, alert Neurologic Exam: alert, oriented x 3, cooperative, normal mood/affect, nml cerebellar function, sensation nml, No motor deficits Skin Exam: normal color, warm, dry Eye Exam: PERRL, EOMI, eyes nml inspection Ears, Nose, Throat Exam: normal ENT inspection, pharynx normal, moist mucous membranes Neck Exam: normal inspection, non-tender, supple, full range of motion Respiratory Exam: normal breath sounds, lungs clear, No respiratory distress Cardiovascular Exam: regular rate/rhythm, normal heart sounds Gastrointestinal/Abdomen Exam: soft, No tenderness, No mass Extremity Exam: normal inspection, normal range of motion Back Exam: normal inspection, normal range of motion, No CVA tenderness, No vertebral tenderness Pelvic Exam: deferred Rectal Exam: deferred OBJECTIVE DATA Vital Signs: Vital Signs - 24 hr Temp Pulse Resp BP Pulse Ox 06/24/21 07:03 97.7 F 63 22 132/63 94 L 06/24/21 04:08 72 06/23/21 21:04 63 20 92 L 06/23/21 19:39 97.7 F 62 19 139/64 93 L 06/23/21 15:56 97.9 F 61 20 163/70 95 06/23/21 15:23 60 20 94 L Pain Assessment - Last Documented Pain Intensity 0 Intake and Output: Intake & Output 06/21/21 06/22/21 06/23/21 06/24/21 11:59 11:59 11:59 11:59 Intake Total 500 Balance 500 Weight 93.6 kg Lab Results: Lab Results-Last 24 Hours 06/24/21 06/24/21 Range/Units 05:39 05:39 WBC 7.9 (4.0-10.5) K/mm3 RBC 4.16 (4.1-5.4) M/mm3 Hgb 13.2 (12.0-16.0) gm/dl Hct 39.8 (35-47) % MCV 95.7 (78-100) fl MCH 31.7 (26-32) pg MCHC 33.2 (32-36) g/dl RDW 13.4 (11.5-14.0) % Plt Count 275 (150-450) K/mm3 MPV 10.4 (7.5-11.0) fl Segmented Neutrophils 91 H (36.0-66.0) % Lymphocytes (Manual) 9 L (24-44) % Toxic Granulation 1+ Platelet Estimate NORMAL (NORMAL) RBC Morphology ABNORMAL Anisocytosis 1+ Sodium 136 L (137-145) mmol/L Potassium 4.3 (3.5-5.1) mmol/L Chloride 101 (98-107) mmol/L Carbon Dioxide 26 (22-30) mmol/L Anion Gap 13.9 (5-15) MEQ/L BUN 23 H (7-17) mg/dL Creatinine 0.61 (0.52-1.04) mg/dL Estimated GFR > 60.0 ML/MIN Glucose 230 H (74-106) mg/dL Calcium 8.3 L (8.4-10.2) mg/dL Total Bilirubin 0.50 (0.2-1.3) mg/dL AST 28 (14-36) U/L ALT 35 (0-35) U/L Alkaline Phosphatase 54 (38-126) U/L Serum Total Protein 6.6 (6.3-8.2) g/dL Albumin 3.3 L (3.5-5.0) g/dL Assessment/Plan (1) HTN (hypertension) Current Visit: No Status: Acute Qualifiers: Hypertension type: primary hypertension Code(s): I10 - ESSENTIAL (PRIMARY) HYPERTENSION (2) Altered mental status Current Visit: Yes Status: Resolved Qualifiers: Altered mental status type: somnolence Qualified Code(s): R40.0 - Somnolence Code(s): R41.82 - ALTERED MENTAL STATUS, UNSPECIFIED
[2021-06-24] MEDS: Diflucan 100 MG PO SCH (09:32)
[2021-06-24] MEDS: Calcium 500MG W/Vit D Tablet PO SCH (09:32)
[2021-06-24] MEDS: ENOXAPARIN SODIUM SQ SCH (09:32)
[2021-06-24] MEDS: MAG-OX 400 PO SCH (09:33)
[2021-06-24] MEDS: VITAMIN D PO SCH (09:33)
[2021-06-24] MEDS: MUCINEX DM 600/30MG PO SCH ×2 (09:33→21:45)
[2021-06-24] MEDS: Pepcid 20 MG PO SCH ×2 (09:33→21:45)
[2021-06-24] MEDS: Bystolic 5 MG PO SCH ×2 (09:33→21:44)
[2021-06-24] MEDS: Aldactone 25 MG PO SCH (09:33)
[2021-06-24] MEDS: Sterile H2O 10 ml IJ SCH ×2 (09:34→21:45)
[2021-06-24] MEDS: solu-MEDROL 40 MG IV SCH ×2 (09:34→21:45)
[2021-06-24] MEDS: Ranexa 500 MG PO SCH (09:34)
[2021-06-24] MEDS: Protonix 40MG Tablet PO SCH (09:34)
[2021-06-24] MEDS: ANTIVERT 25 MG PO SCH (09:34)
[2021-06-24] MEDS: hydroDIURIL 25 MG PO SCH (09:34)
[2021-06-24] MEDS: ADVAIR/WIXELLA 250-50 DISKUS 14 DOSE IH SCH ×2 (09:56→17:49)
[2021-06-24] MEDS ORDERED: Aplisol ID SCH (10:00)
[2021-06-24] MEDS: Sodium Chloride 0.9% 1000 ML 1,000 ML IV SCH (13:22)
[2021-06-24] MEDS: ZOCOR 20MG PO SCH (21:45)
[2021-06-25 05:43] LABS: Hematocrit 39.3 % (35-47); Hemoglobin 12.8 gm/dl (12.0-16.0); Mean Cell Volume 94.5 fl (78-100); Mean Corpuscular Hemoglobin 30.8 pg (26-32); Mean Corpuscular Hgb Concent. 32.6 g/dl (32-36); Mean Platelet Volume 10.2 fl (7.5-11.0); Platelet Count 318 K/mm3 (150-450); Red Blood Count 4.16 M/mm3 (4.1-5.4); Red Cell Distribution Width 13.4 % (11.5-14.0); White Blood Count 9.4 K/mm3 (4.0-10.5)
[2021-06-25] MEDS: Sodium Chloride 0.9% 10 ML FLUSH Syringe IV SCH ×3 (05:57→21:29)
[2021-06-25 05:59] LABS: ALBUMIN 3.3 g/dL (3.5-5.0); ALKALINE PHOSPHATASE 54 U/L (38-126); BLOOD UREA NITROGEN 26 mg/dL (7-17); CHLORIDE 97 mmol/L (98-107); Calcium 8.6 mg/dL (8.4-10.2); Carbon Dioxide 26 mmol/L (22-30); Creatinine 1 0.69 mg/dL (0.52-1.04); EST GLOMERULAR FILTRATION RATE > 60.0 ML/MIN; Glucose 263 mg/dL (74-106); SGOT/AST 23 U/L (14-36); SGPT/ALT 34 U/L (0-35); SODIUM 132 mmol/L (137-145); Total Protein 6.4 g/dL (6.3-8.2)
[2021-06-25 06:01] LABS: Potassium 4.3 mmol/L (3.5-5.1)
[2021-06-25 06:11] LABS: ANION GAP 13.3 MEQ/L (5-15)
[2021-06-25] MEDS: ADVAIR/WIXELLA 250-50 DISKUS 14 DOSE IH SCH ×2 (07:07→19:22)
[2021-06-25 07:29] LABS: BAND 1 % (0.0-2.0); Lymphocytes 4 % (24-44); Monocyte 1 % (0.0-12.0); Neutrophils 94 % (36.0-66.0); Total Cells Counted 100
[2021-06-25 07:30] LABS: Platelet Estimate NORMAL (NORMAL)
[2021-06-25] MEDS: Bystolic 5 MG PO SCH ×2 (08:46→21:28)
[2021-06-25] MEDS: VITAMIN D PO SCH (08:46)
[2021-06-25] MEDS: hydroDIURIL 25 MG PO SCH (08:47)
[2021-06-25] MEDS: Diflucan 100 MG PO SCH (08:47)
[2021-06-25] MEDS: Ranexa 500 MG PO SCH (08:47)
[2021-06-25] MEDS: Calcium 500MG W/Vit D Tablet PO SCH (08:48)
[2021-06-25] MEDS: ANTIVERT 25 MG PO SCH (08:48)
[2021-06-25] MEDS: Pepcid 20 MG PO SCH ×2 (08:48→21:29)
[2021-06-25] MEDS: Aldactone 25 MG PO SCH (08:48)
[2021-06-25] MEDS: MAG-OX 400 PO SCH (08:48)
[2021-06-25] MEDS: Protonix 40MG Tablet PO SCH (08:48)
[2021-06-25] MEDS: ENOXAPARIN SODIUM SQ SCH (08:49)
[2021-06-25] MEDS: solu-MEDROL 40 MG IV SCH ×2 (08:49→21:29)
[2021-06-25] MEDS: MUCINEX DM 600/30MG PO SCH ×2 (08:49→21:28)
[2021-06-25] MEDS: Sterile H2O 10 ml IJ SCH ×2 (08:49→21:29)
[2021-06-25] MEDS: ZOCOR 20MG PO SCH (21:30)
[2021-06-26 05:05] LABS: Hematocrit 39.6 % (35-47); Hemoglobin 13.1 gm/dl (12.0-16.0); Mean Cell Volume 93.8 fl (78-100); Mean Corpuscular Hgb Concent. 33.1 g/dl (32-36); Mean Platelet Volume 10.2 fl (7.5-11.0); Platelet Count 289 K/mm3 (150-450); Red Blood Count 4.22 M/mm3 (4.1-5.4); Red Cell Distribution Width 13.6 % (11.5-14.0); White Blood Count 9.9 K/mm3 (4.0-10.5)
[2021-06-26 05:23] LABS: ALBUMIN 3.4 g/dL (3.5-5.0); ALKALINE PHOSPHATASE 55 U/L (38-126); BLOOD UREA NITROGEN 34 mg/dL (7-17); CHLORIDE 96 mmol/L (98-107); Carbon Dioxide 26 mmol/L (22-30); Creatinine 1 0.79 mg/dL (0.52-1.04); EST GLOMERULAR FILTRATION RATE > 60.0 ML/MIN; Glucose 306 mg/dL (74-106); Potassium 4.9 mmol/L (3.5-5.1); SGOT/AST 19 U/L (14-36); SGPT/ALT 35 U/L (0-35); SODIUM 129 mmol/L (137-145); Total Protein 6.5 g/dL (6.3-8.2)
[2021-06-26] MEDS: Sodium Chloride 0.9% 10 ML FLUSH Syringe IV SCH (05:25)
[2021-06-26] MEDS: ADVAIR/WIXELLA 250-50 DISKUS 14 DOSE IH SCH (07:35)
[2021-06-26 08:07] LABS: Lymphocytes 4 % (24-44); Monocyte 2 % (0.0-12.0); Neutrophils 94 % (36.0-66.0); Total Cells Counted 100
[2021-06-26 08:08] LABS: Platelet Estimate NORMAL (NORMAL)
[2021-06-26] MEDS: Sodium Chloride 0.9% 1000 ML 1,000 ML IV SCH ×2 (09:47→09:48)
[2021-06-26] MEDS: Diflucan 100 MG PO SCH (09:49)
[2021-06-26] MEDS: Aldactone 25 MG PO SCH (09:49)
[2021-06-26] MEDS: Bystolic 5 MG PO SCH (09:49)
[2021-06-26] MEDS: VITAMIN D PO SCH (09:49)
[2021-06-26] MEDS: Ranexa 500 MG PO SCH (09:50)
[2021-06-26] MEDS: MAG-OX 400 PO SCH (09:50)
[2021-06-26] MEDS: hydroDIURIL 25 MG PO SCH (09:50)
[2021-06-26] MEDS: Calcium 500MG W/Vit D Tablet PO SCH (09:50)
[2021-06-26] MEDS: Pepcid 20 MG PO SCH (09:50)
[2021-06-26] MEDS: Protonix 40MG Tablet PO SCH (09:50)
[2021-06-26] MEDS: ANTIVERT 25 MG PO SCH (09:50)
[2021-06-26] MEDS: MUCINEX DM 600/30MG PO SCH (09:50)
[2021-06-26] MEDS: ENOXAPARIN SODIUM SQ SCH (09:51)
[2021-06-26] MEDS: solu-MEDROL 40 MG IV SCH (09:51)
[2021-06-26] MEDS: Sterile H2O 10 ml IJ SCH (09:51)
[2021-06-26 13:55] VITALS: BP 143/72; PULSE 60; O2SAT 90
[2021-07-05] MEDS ORDERED: Aplisol ID SCH (10:00)
== END 2021-06-26 14:32 | DRG 195 ==
LOC: MED SURG 15:15
PROVIDERS: ADMIT Family Medicine; ATTEND Family Medicine
DX: J10.1 Influenza due to other identified influenza virus with other respiratory manifestations (principal); J18.9 Pneumonia, unspecified organism; R41.82 Altered mental status, unspecified; I10 Essential (primary) hypertension; Z79.899 Other long term (current) drug therapy; J44.9 Chronic obstructive pulmonary disease, unspecified
CPT/HCPCS: 36415; 80053; 85025; 94640; 94760; J1650; J2920; 97110-GP; A9270-GY

== ENCOUNTER 2023-01-15 13:43 | Emergency (ER) | payer MEDICARE ==
[2023-01-15 14:15] LABS: Absolute Neutrophil Ct (ANC) 8.68 x10^3/uL (1.4-6.9); BASOPHIL % 0.2 % (0.0-0.4); Basophil (Absolute #) 0.02 x10^3/uL (0-0.4); Eosinophil % 0.8 % (0.00-5.0); Eosinophil (Absolute #) 0.09 x10^3/uL (0-0.5); Hematocrit 40.5 % (35-47); IMMATURE GRAN # 0.06 x10^3u/L (0.00-0.03); IMMATURE GRAN % 0.6 % (0.00-0.4); Lymphocytes % 12.9 % (24.0-44.0); Mean Cell Volume 99.3 fL (78-100); Mean Corpuscular Hemoglobin 31.9 pg (26-32); Mean Corpuscular Hgb Concent. 32.1 g/dL (32-36); Mean Platelet Volume 9.9 fL (7.5-11.0); Monocyte (Absolute #) 0.57 x10^3/uL (0.0-1.3); Monocytes % 5.3 % (0.0-12.0); Neutrophil % 80.2 % (36.0-66.0); Platelet Count 197 x10^3/uL (150-450); Red Blood Count 4.08 x10^6/uL (4.1-5.4); Red Cell Distribution Width 13.4 % (11.5-14.0); White Blood Count 10.8 x10^3/uL (4.0-10.5)
--- NOTE | 2023-01-15 14:29 | XRAY ---
Indication: Cough. Comparison: September 21, 2021 Portable apical lordotic chest is now clear. Heart not enlarged. Bony thorax intact again with mild degenerative changes. No new/acute findings.
[2023-01-15 14:31] LABS: ALBUMIN 3.6 g/dL (3.5-5.0); ALKALINE PHOSPHATASE 72 U/L (38-126); ANION GAP 13.7 MEQ/L (5-15); BLOOD UREA NITROGEN 24 mg/dL (7-17); CHLORIDE 101 mmol/L (98-107); Calcium 8.3 mg/dL (8.4-10.2); Carbon Dioxide 28 mmol/L (22-30); Creatinine 1 0.76 mg/dL (0.52-1.04); EST GLOMERULAR FILTRATION RATE > 60.0 ML/MIN; Glucose 123 mg/dL (74-106); Potassium 4.2 mmol/L (3.5-5.1); SGOT/AST 27 U/L (14-36); SGPT/ALT 23 U/L (0-35); SODIUM 139 mmol/L (137-145); Total Protein 6.8 g/dL (6.3-8.2)
--- NOTE | 2023-01-15 14:38 | ERPHSYRPT ---
- History of Present Illness Source: patient, other (Son) Exam Limitations: other (Very poor historian) Patient Subjective Stated Complaint: Pt sates "I do not feel well. I felt odd yesterday and it went away and I just do not feel well today." Triage Nursing Assessment: Pt presented alert oriented X 3 skin wpd. Pt ambulates with an slow gait, able to speak in clear full sentences. pt in no apaprent respiratory distress. Pt resting comfortably on the bed, pt nauseated. Physician History: 72 yo WF brought to the ER by ambulance complains of lethargy/nausea/vomting/cough x1wk/just not feeling well. Pt is a very poor historian. She denies fever/chest pain/abdominal pain/dysuria/hematuria/focal weakness. Pt ambulates w a walker. Timing/Duration: other (2-3 days) Severity: mild Modifying Factors: Improves With: nothing Associated Symptoms: nausea, vomiting, shortness of breath, cough, weakness, No abdominal pain, No heartburn, No diaphoresis, No chest pain, No fever Allergies/Adverse Reactions: acetaminophen [From Darvocet-N] Allergy (Mild, Verified 06/17/21 14:59) UNABLE TO VERIFY ALLERGIES propoxyphene [From Darvocet-N] Allergy (Mild, Verified 06/17/21 14:59) UNABLE TO VERIFY ALLERGIES sucralfate [From Carafate] Allergy (Mild, Verified 06/17/21 14:59) UNABLE TO VERIFY ALLERGIES Home Medications: Famotidine 40 mg PO BID 07/02/17 [History] Nebivolol HCl [Bystolic] 10 mg PO BID 07/02/17 [History] Rosuvastatin Calcium 1 tab PO HS 07/02/17 [History] Vilazodone Hydrochloride [Viibryd] 40 mg PO DAILY 07/02/17 [History] Meclizine HCl 25 mg [Antivert 25 mg] 25 mg PO BID 06/17/21 [History] Omeprazole 40 mg PO DAILY 06/17/21 [History] Ranolazine [Ranolazine ER] 1,000 mg PO BID 06/17/21 [History] Aspirin EC 81 mg [Ecotrin 81 mg] 1 tab PO DAILY 01/15/23 [History] Bumetanide 1 mg [Bumex 1 mg] 1 tab PO BID PRN 01/15/23 [History] Eszopiclone 1 tab PO HS 01/15/23 [History] Fluticasone/Vilanterol [Breo Ellipta 100-25 Mcg INH] 1 puff PO DAILY 01/15/23 [History] Nitroglycerin 0.4 mg Tablet [Nitrostat 0.4 MG Tablet] 1 tab PO Q5MIN PRN MR X 3 PRN 01/15/23 [History] Hx Tetanus, Diphtheria Vaccination/Date Given: No Hx Influenza Vaccination/Date Given: No Hx Pneumococcal Vaccination/Date Given: No Immunizations Up to Date: Yes Travel Risk - International Travel Have you traveled outside of the country in past 3 weeks: No - Coronavirus Screening Are you exhibiting any of the following symptoms?: Yes Symptoms: Vomiting/Diarrhea Close contact with a COVID-19 positive Pt in past 14-21 Days: No - Vaccine Status Have you recieved a Covid-19 vaccination: Yes (only 1 shot) [employer]: [employer] - Vaccination Dates Date of 2cond Vaccination (if applicable): n/a - Review of Systems Constitutional: No Symptoms, Fatigue, Lethargy Eyes: No Symptoms Ears, Nose, & Throat: No Symptoms Respiratory: No Symptoms, Cough Cardiac: No Symptoms Abdominal/Gastrointestinal: No Symptoms, Nausea, Vomiting Genitourinary Symptoms: No Symptoms Musculoskeletal: No Symptoms Skin: No Symptoms Neurological: No Symptoms Psychological: No Symptoms Endocrine: No Symptoms Hematologic/Lymphatic: No Symptoms Immunological/Allergic: No Symptoms - Past Medical History Pertinent Past Medical History: Yes Neurological History: No Pertinent History ENT History: No Pertinent History Cardiac History: Angina Respiratory History: COPD Endocrine Medical History: No Pertinent History Musculoskeletal History: Arthritis, Other GI Medical History: GERD History: No Pertinent History Psycho-Social History: Anxiety, Depression Female Reproductive Disorders: No Pertinent History Other Medical History: pt left leg partially crippled, assessment recalled, unable to assess d/t altered mental status - Past Surgical History Past Surgical History: Yes Neuro Surgical History: No Pertinent History Cardiac: No Pertinent History Respiratory: No Pertinent History Gastrointestinal: Cholecystectomy Genitourinary: No Pertinent History Musculoskeletal: No Pertinent History Female Surgical History: No Pertinent History, Tubal Ligation Other Surgical History: back surgery. assessment recalled, unable to assess d/t altered mental status - Social History Smoking Status: Former smoker How long have you smoked: years Exposure to second hand smoke: Yes Drug Use: none Patient Lives Alone: Yes - Nursing Vital Signs Nursing Vital Signs: Initial Vital Signs Temperature 97.3 F 01/15/23 13:44 Pulse Rate 70 01/15/23 13:44 Respiratory Rate 20 01/15/23 13:44 Blood Pressure 129/46 01/15/23 13:44 O2 Sat by Pulse Oximetry 98 01/15/23 13:44 Pain Scale Pain Intensity 0 WNL - Physical Exam General Appearance: no apparent distress Eye Exam: PERRL/EOMI, eyes nml inspection Ears, Nose, Throat Exam: normal ENT inspection, TMs normal, pharynx normal, moist mucous membranes Neck Exam: normal inspection, non-tender, supple, full range of motion, No meningismus, No mass, No Brudzinski, No Kernig's Respiratory Exam: normal breath sounds, lungs clear, airway intact, No respiratory distress Cardiovascular Exam: gallop (S3), bradycardia, capillary refill <2 sec, No murmur Gastrointestinal/Abdomen Exam: soft, normal bowel sounds, No tenderness Back Exam: normal inspection Extremity Exam: normal inspection, normal range of motion Neurologic Exam: alert, oriented x 3, cooperative, 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 nml as tested, normal mood/affect, sensation nml, No motor deficits, No sensory deficit Skin Exam: normal color, warm, dry Lymphatic Exam: No adenopathy SpO2 Interpretation: normal SpO2: 98 O2 Delivery: Room Air - Course Nursing assessment & vital signs reviewed: Yes EKG Interpreted by Me: RATE (Sinus varsha/Normal QT-QTc/IVCD/Nonspecific ST-Twave changes) - Radiology Exams Chest X-ray Interpretation: Reviewed by me, Discussed w/ radiologist (CXR NAD) - CT Exams Head CT Interpretation: Discussed w/radiologist (CT head neg per Rad) Chest CT Interpretation: Discussed w/radiologist (CT chest neg per Rad) Ordered Tests: Active Orders 24 hr Category Date Time Status EKG-ER Only STAT Care 01/15/23 13:57 Completed CHEST 1 VIEW (PORTABLE) Stat Exams 01/15/23 13:57 Completed CHEST WITHOUT CONTRAST [CT] Stat Exams 01/15/23 15:34 Completed HEAD WITHOUT CONTRAST [CT] Stat Exams 01/15/23 15:21 Completed CBC W DIFF Stat Lab 01/15/23 13:55 Completed CMP Stat Lab 01/15/23 13:55 Completed CULTURE,URINE Stat Lab 01/15/23 14:10 Received Lactic Acid Stat Lab 01/15/23 14:25 Completed TROPONIN Q4H Lab 01/15/23 14:00 Completed TROPONIN Q4H Lab 01/15/23 16:11 Completed TROPONIN Q4H Lab 01/15/23 22:00 Ordered UA W/RFX UR CULTURE Stat Lab 01/15/23 14:10 Completed Lab/Rad Data: Laboratory Result Diagrams 01/15/23 13:55 01/15/23 13:55 Laboratory Results 01/15/23 01/15/23 01/15/23 Range/Units Unknown 16:11 14:25 WBC (4.0-10.5) x10^3/uL RBC (4.1-5.4) x10^6/uL Hgb (12.0-16.0) g/dL Hct (35-47) % MCV (78-100) fL MCH (26-32) pg MCHC (32-36) g/dL RDW (11.5-14.0) % Plt Count (150-450) x10^3/uL MPV (7.5-11.0) fL Gran % (36.0-66.0) % Immature Gran % (Auto) (0.00-0.4) % Nucleat RBC Rel Count (0.00-0.1) % Eos # (Auto) (0-0.5) x10^3/uL Immature Gran # (Auto) (0.00-0.03) x10^3u/L Absolute Lymphs (auto) (1.0-4.6) x10^3/uL Absolute Monos (auto) (0.0-1.3) x10^3/uL Absolute Nucleated RBC (0.00-0.01) x10^3u/L Lymphocytes % (24.0-44.0) % Monocytes % (0.0-12.0) % Eosinophils % (0.00-5.0) % Basophils % (0.0-0.4) % Absolute Granulocytes (1.4-6.9) x10^3/uL Basophils # (0-0.4) x10^3/uL Sodium (137-145) mmol/L Potassium (3.5-5.1) mmol/L Chloride (98-107) mmol/L Carbon Dioxide (22-30) mmol/L Anion Gap (5-15) MEQ/L BUN (7-17) mg/dL Creatinine (0.52-1.04) mg/dL Estimated GFR ML/MIN Glucose (74-106) mg/dL Lactic Acid 1.8 (0.4-2.0) Calcium (8.4-10.2) mg/dL Total Bilirubin (0.2-1.3) mg/dL AST (14-36) U/L ALT (0-35) U/L Alkaline Phosphatase (38-126) U/L Troponin I < 0.012 (0.000-0.034) ng/mL Serum Total Protein (6.3-8.2) g/dL Albumin (3.5-5.0) g/dL Urine Color (Yellow) Urine Appearance (Clear) Urine pH (4.6-8.0) Ur Specific [place] (1.005-1.030) Urine Protein (Negative) Urine Glucose (UA) (Negative) mg/dL Urine Ketones (Negative) Urine Blood (Negative) Urine Nitrite (Negative) Urine Bilirubin (Negative) Urine Urobilinogen (0.2) mg/dL Ur Leukocyte Esterase (Negative) U Hyaline Cast (Auto) (0-2) /LPF Urine Microscopic RBC (0-5) /HPF Urine Microscopic WBC (0-5) /HPF Ur Epithelial Cells (None Seen) /HPF Urine Bacteria (None Seen) /HPF Urine Culture Reflexed (NO) Influenza Type A Ag NEGATIVE (NEGATIVE) Influenza Type B Ag NEGATIVE (NEGATIVE) RSV (PCR) NEGATIVE (NEGATIVE) SARS-CoV-2 (PCR) NEGATIVE (NEGATIVE) 01/15/23 01/15/23 01/15/23 Range/Units 14:10 14:00 13:55 WBC (4.0-10.5) x10^3/uL RBC (4.1-5.4) x10^6/uL Hgb (12.0-16.0) g/dL Hct (35-47) % MCV (78-100) fL MCH (26-32) pg MCHC (32-36) g/dL RDW (11.5-14.0) % Plt Count (150-450) x10^3/uL MPV (7.5-11.0) fL Gran % (36.0-66.0) % Immature Gran % (Auto) (0.00-0.4) % Nucleat RBC Rel Count (0.00-0.1) % Eos # (Auto) (0-0.5) x10^3/uL Immature Gran # (Auto) (0.00-0.03) x10^3u/L Absolute Lymphs (auto) (1.0-4.6) x10^3/uL Absolute Monos (auto) (0.0-1.3) x10^3/uL Absolute Nucleated RBC (0.00-0.01) x10^3u/L Lymphocytes % (24.0-44.0) % Monocytes % (0.0-12.0) % Eosinophils % (0.00-5.0) % Basophils % (0.0-0.4) % Absolute Granulocytes (1.4-6.9) x10^3/uL Basophils # (0-0.4) x10^3/uL Sodium 139 (137-145) mmol/L Potassium 4.2 (3.5-5.1) mmol/L Chloride 101 (98-107) mmol/L Carbon Dioxide 28 (22-30) mmol/L Anion Gap 13.7 (5-15) MEQ/L BUN 24 H (7-17) mg/dL Creatinine 0.76 (0.52-1.04) mg/dL Estimated GFR > 60.0 ML/MIN Glucose 123 H (74-106) mg/dL Lactic Acid (0.4-2.0) Calcium 8.3 L (8.4-10.2) mg/dL Total Bilirubin 0.60 (0.2-1.3) mg/dL AST 27 (14-36) U/L ALT 23 (0-35) U/L Alkaline Phosphatase 72 (38-126) U/L Troponin I < 0.012 (0.000-0.034) ng/mL Serum Total Protein 6.8 (6.3-8.2) g/dL Albumin 3.6 (3.5-5.0) g/dL Urine Color Yellow (Yellow) Urine Appearance Clear (Clear) Urine pH 7.5 (4.6-8.0) Ur Specific [place] 1.010 (1.005-1.030) Urine Protein Negative (Negative) Urine Glucose (UA) Negative (Negative) mg/dL Urine Ketones Negative (Negative) Urine Blood Negative (Negative) Urine Nitrite Negative (Negative) Urine Bilirubin Negative (Negative) Urine Urobilinogen 1.0 A (0.2) mg/dL Ur Leukocyte Esterase Negative (Negative) U Hyaline Cast (Auto) NONE SEEN (0-2) /LPF Urine Microscopic RBC 0-2 (0-5) /HPF Urine Microscopic WBC 0-2 (0-5) /HPF Ur Epithelial Cells None Seen (None Seen) /HPF Urine Bacteria None Seen (None Seen) /HPF Urine Culture Reflexed YES (NO) Influenza Type A Ag (NEGATIVE) Influenza Type B Ag (NEGATIVE) RSV (PCR) (NEGATIVE) SARS-CoV-2 (PCR) (NEGATIVE) 01/15/23 Range/Units 13:55 WBC 10.8 H (4.0-10.5) x10^3/uL RBC 4.08 L (4.1-5.4) x10^6/uL Hgb 13.0 (12.0-16.0) g/dL Hct 40.5 (35-47) % MCV 99.3 (78-100) fL MCH 31.9 (26-32) pg MCHC 32.1 (32-36) g/dL RDW 13.4 (11.5-14.0) % Plt Count 197 (150-450) x10^3/uL MPV 9.9 (7.5-11.0) fL Gran % 80.2 H (36.0-66.0) % Immature Gran % (Auto) 0.6 H (0.00-0.4) % Nucleat RBC Rel Count 0.0 (0.00-0.1) % Eos # (Auto) 0.09 (0-0.5) x10^3/uL Immature Gran # (Auto) 0.06 H (0.00-0.03) x10^3u/L Absolute Lymphs (auto) 1.40 (1.0-4.6) x10^3/uL Absolute Monos (auto) 0.57 (0.0-1.3) x10^3/uL Absolute Nucleated RBC 0.00 (0.00-0.01) x10^3u/L Lymphocytes % 12.9 L (24.0-44.0) % Monocytes % 5.3 (0.0-12.0) % Eosinophils % 0.8 (0.00-5.0) % Basophils % 0.2 (0.0-0.4) % Absolute Granulocytes 8.68 H (1.4-6.9) x10^3/uL Basophils # 0.02 (0-0.4) x10^3/uL Sodium (137-145) mmol/L Potassium (3.5-5.1) mmol/L Chloride (98-107) mmol/L Carbon Dioxide (22-30) mmol/L Anion Gap (5-15) MEQ/L BUN (7-17) mg/dL Creatinine (0.52-1.04) mg/dL Estimated GFR ML/MIN Glucose (74-106) mg/dL Lactic Acid (0.4-2.0) Calcium (8.4-10.2) mg/dL Total Bilirubin (0.2-1.3) mg/dL AST (14-36) U/L ALT (0-35) U/L Alkaline Phosphatase (38-126) U/L Troponin I (0.000-0.034) ng/mL Serum Total Protein (6.3-8.2) g/dL Albumin (3.5-5.0) g/dL Urine Color (Yellow) Urine Appearance (Clear) Urine pH (4.6-8.0) Ur Specific [place] (1.005-1.030) Urine Protein (Negative) Urine Glucose (UA) (Negative) mg/dL Urine Ketones (Negative) Urine Blood (Negative) Urine Nitrite (Negative) Urine Bilirubin (Negative) Urine Urobilinogen (0.2) mg/dL Ur Leukocyte Esterase (Negative) U Hyaline Cast (Auto) (0-2) /LPF Urine Microscopic RBC (0-5) /HPF Urine Microscopic WBC (0-5) /HPF Ur Epithelial Cells (None Seen) /HPF Urine Bacteria (None Seen) /HPF Urine Culture Reflexed (NO) Influenza Type A Ag (NEGATIVE) Influenza Type B Ag (NEGATIVE) RSV (PCR) (NEGATIVE) SARS-CoV-2 (PCR) (NEGATIVE) - Progress Progress Note: 01/15/23 17:32 Nursing note and vital signs reviewed No food or housing insecurities noted Additional history per son All lab results/CXR result/CT results reviewed and shared w pt/son Pt wo focal weakness/fever/chest pain/dyspnea while in ER Serial PE's wnl Etiology of pt's symptoms unclear, but no evidence of CVA/NH/pneumonia/UTI Counseled pt/family regarding: lab results, diagnosis, need for follow-up, rad results Medical Desision Making - Independent Historian Additional History obtained from: Child - Social Determinants of Health Pt's dx & treatment plan are significantly limited by SDOH: limited education - Diagnostic Testing Radiological Interpretation: Reviewed by me, Discussed w/ radiologist - Departure Departure Disposition: Home Clinical Impression: Lethargy Condition: Stable Critical Care Time: No Referrals: MALINI FRY [Primary Care Provider] - Follow up/PCP as directed Instructions: Generalized Weakness (DC) Additional Instructions: Follow up with your family MD tomorrow Return to ER for worsening of symptoms
[2023-01-15 14:41] LABS: Appearance Clear (Clear); Bacteria None Seen /HPF (None Seen); Bilirubin Negative (Negative); Blood Negative (Negative); Epithelial Cells None Seen /HPF (None Seen); Glucose, Urine Negative (Negative); Hyaline Casts NONE SEEN /LPF (0-2); Ketones Negative (Negative); Leukocyte Esterase Negative (Negative); Nitrite Negative (Negative); Ph 7.5 (4.6-8.0); Protein,Urine Dip Negative (Negative); RBC 0-2 /HPF (0-5); WBC 0-2 /HPF (0-5)
[2023-01-15 14:44] LABS: ADD URINE CULTURE? YES (NO)
[2023-01-15 14:48] LABS: INFLUENZA A NEGATIVE (NEGATIVE); INFLUENZA B NEGATIVE (NEGATIVE); RESPIRATORY SYNCTIAL VIRUS NEGATIVE (NEGATIVE); SARS-CoV-2 Xpert Express NEGATIVE (NEGATIVE)
--- NOTE | 2023-01-15 16:27 | XRAY ---
Indication: Altered mental status. Confusion. Multiple contiguous axial images obtained through the head without contrast. Comparison: June 16, 2021 Again age-appropriate global atrophy. No acute intracranial hemorrhage, abnormal extra-axial fluid collection, mass effect. Fourth ventricle is midline without hydrocephalus. Canseco-white matter differentiation preserved. Bony calvarium intact. Visualized paranasal sinuses and mastoid air cells are clear. Impression: Continued negative CT head without contrast exam.
--- NOTE | 2023-01-15 16:29 | XRAY ---
Indication: Cough. Comparison: None Lungs demonstrates minimal scattered bilateral mid to lower lung subsegmental atelectasis/scarring. No suspicious pulmonary mass/nodule, infiltrate, effusion, or pneumothorax. Heart not enlarged. Aorta minimally arteriosclerotic without aneurysm. No pathologic mediastinal lymphadenopathy. Small hiatal hernia. Bony thorax intact with osteopenia, mild degenerative changes throughout the spine, and mild dextroscoliosis centered at T7. Limited upper abdomen demonstrates nonobstructing right renal punctate calculus and cholecystectomy. Impression: 1. Chronic findings including atelectasis/scarring, small hiatal hernia, chronic bony findings, and nonobstructing right renal punctate calculus. 2. Remaining CT chest without contrast exam is negative.
[2023-01-15 17:06] VITALS: O2SAT 98
[2023-01-15 17:10] VITALS: BP 113/48; PULSE 60
== END 2023-01-15 17:23 | disposition home or self-care (01) ==
LOC: ED 13:43
DX: R53.83 Other fatigue (principal); R11.2 Nausea with vomiting, unspecified; R05.1 Acute cough; Z79.899 Other long term (current) drug therapy; Z55.8 Other problems related to education and literacy
CPT/HCPCS: 0241U; 36000; 36415; 70450; 71045; 71250; 80053; 81001; 83605; 84484; 85025; 87086; 93005; 99284

== ENCOUNTER 2023-04-20 22:15 | Emergency (ER) | payer MEDICARE ==
--- NOTE | 2023-04-20 22:22 | ERPHSYRPT ---
- History of Present Illness Time Seen by Provider: 04/20/23 22:22 Source: patient, EMS Exam Limitations: no limitations Physician History: This is an obese 72-year-old white female patient who walks with a walker and was walking uphill per her report, the walker got caught and she fell backwards hitting her head and face and left hip. Patient stated that she did not want come to the hospital but she does have pain in those areas and the paramedics brought her to the emergency department for further evaluation management. Patient states that she did not lose consciousness and she is not on any blood thinning medication. Patient has a history of anxiety, COPD/asthma, hyperlipidemia, hypertension and gastroesophageal reflux disease. Occurred: just prior to arrival Reason for Fall: fell from standing pos Injuries/Pain Location: head, face, neck, lower extremity Loss of Consciousness: no loss of consciousness (Left hip) Quality: aching Severity of Pain-Max: mild Severity of Pain-Current: mild Modifying Factors: Improves With: movement Associated Symptoms (Fall): denies symptoms, extremity injury (Left hip pain), headache, neck pain, No abdominal pain, No back pain, No chest pain Allergies/Adverse Reactions: acetaminophen [From Darvocet-N] Allergy (Mild, Verified 04/20/23 22:29) UNABLE TO VERIFY ALLERGIES propoxyphene [From Darvocet-N] Allergy (Mild, Verified 04/20/23 22:29) UNABLE TO VERIFY ALLERGIES sucralfate [From Carafate] Allergy (Mild, Verified 04/20/23 22:29) UNABLE TO VERIFY ALLERGIES Home Medications: Famotidine 40 mg PO BID 07/02/17 [History] Nebivolol HCl [Bystolic] 10 mg PO BID 07/02/17 [History] Rosuvastatin Calcium 1 tab PO HS 07/02/17 [History] Vilazodone Hydrochloride [Viibryd] 40 mg PO DAILY 07/02/17 [History] Omeprazole 40 mg PO DAILY 06/17/21 [History] Ranolazine [Ranolazine ER] 1,000 mg PO BID 06/17/21 [History] Aspirin EC 81 mg [Ecotrin 81 mg] 1 tab PO DAILY 01/15/23 [History] Bumetanide 1 mg [Bumex 1 mg] 1 tab PO DAILY 01/15/23 [History] Fluticasone/Vilanterol [Breo Ellipta 100-25 Mcg INH] 1 puff PO DAILY 01/15/23 [History] Hx Tetanus, Diphtheria Vaccination/Date Given: No Hx Influenza Vaccination/Date Given: No Hx Pneumococcal Vaccination/Date Given: No Travel Risk - International Travel Have you traveled outside of the country in past 3 weeks: No - Coronavirus Screening Are you exhibiting any of the following symptoms?: No Close contact with a COVID-19 positive Pt in past 14-21 Days: No - Vaccine Status Have you recieved a Covid-19 vaccination: Yes (only 1 shot) 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 There is ecchymosis and swelling above the left eyebrow) Neurological: No Symptoms Psychological: No Symptoms Endocrine: No Symptoms Hematologic/Lymphatic: No Symptoms Immunological/Allergic: No Symptoms All Other Systems: Reviewed and Negative - Past Medical History Pertinent Past Medical History: Yes Neurological History: No Pertinent History ENT History: No Pertinent History Cardiac History: Angina Respiratory History: COPD Endocrine Medical History: No Pertinent History Musculoskeletal History: Arthritis, Other GI Medical History: GERD History: No Pertinent History Psycho-Social History: Anxiety, Depression Female Reproductive Disorders: No Pertinent History Other Medical History: pt left leg partially crippled, assessment recalled, unable to assess d/t altered mental status - Past Surgical History Past Surgical History: Yes Neuro Surgical History: No Pertinent History Cardiac: No Pertinent History Respiratory: No Pertinent History Gastrointestinal: Cholecystectomy Genitourinary: No Pertinent History Musculoskeletal: No Pertinent History Female Surgical History: No Pertinent History, Tubal Ligation Other Surgical History: back surgery. assessment recalled, unable to assess d/t altered mental status - Social History Smoking Status: Former smoker How long have you smoked: years Exposure to second hand smoke: Yes Drug Use: none Patient Lives Alone: Yes - Nursing Vital Signs Nursing Vital Signs: Initial Vital Signs Temperature 98.4 F 07/03/23 22:16 Pulse Rate 61 04/20/23 22:16 Respiratory Rate 22 04/20/23 22:16 Blood Pressure 151/78 04/20/23 22:16 O2 Sat by Pulse Oximetry 98 04/20/23 22:16 Pain Scale Pain Intensity 6 - Chris Coma Score Best Eye Response ([place]): (4) open spontaneously Best Verbal Response ([place]): (5) oriented Best Motor Response ([place]): (6) obeys commands Chris Total: 15 - Physical Exam General Appearance: no apparent distress, alert, anxiety Head Injury: contusions (Above left eyebrow), ecchymosis (Above left eyebrow), swelling (Above left eyebrow), tenderness (Above left eyebrow) Eye Exam: PERRL/EOMI, eyes nml inspection ENT Exam: airway nml, nml ext.inspection Neck Exam: supple, trachea midline, full range of motion, normal alignment, normal inspection Respiratory/Chest Exam: normal breath sounds, No chest tenderness, No respiratory distress, No ecchymosis, No crepitus, No accessory muscle use Cardiovascular Exam: normal heart sounds, regular rate/rhythm Gastrointestinal Exam: soft, normal bowel sounds, No tenderness Rectal Exam: not done Back Exam: normal inspection, normal range of motion, No CVA tenderness, No vertebral tenderness Extremity Exam: normal range of motion, pelvis stable (Mild tenderness left hip), bony point tenderness (Mild left hip), hip tenderness (Mild left hip), No evidence of injury Neurologic Exam: alert, oriented x 3, cooperative, oral and maxillofacial surgeon II-XII nml as tested, normal mood/affect, sensation nml Skin Exam: abrasion (Left forehead left cheek), ecchymosis SpO2 Interpretation: normal O2 Delivery: Room Air - Course Nursing assessment & vital signs reviewed: Yes Ordered Tests: Active Orders 24 hr Category Date Time Status CERVICAL SPINE WO CONTRAST [CT] Stat Exams 04/20/23 22:54 Taken FACIAL BONES WO CONTRAST [CT] Stat Exams 04/20/23 22:54 Taken HEAD WITHOUT CONTRAST [CT] Stat Exams 04/20/23 22:54 Taken HIP UNI (2V) INCL PEL IF DONE Stat Exams 04/20/23 22:54 Taken - Progress Progress: improved, pain not gone completely, re-examined Progress Note: 04/21/23 02:04 X-ray of the left hip and pelvis was interpreted by me. No evidence of any acute fracture or dislocation. CT scan of the cervical spine without contrast shows no acute fracture or traumatic subluxation. CT scan of the maxillofacial bones without contrast shows no evidence of osseous injury. CT scan of the head without contrast shows no acute intracranial abnormality. The CT scans were interpreted by the radiologist and I reviewed the impression. This patient's medical history is 1 of moderate complexity. Level of complexity and the work-up performed was based on review of the patient's past medical history, review of the patient's medication list, review of the patient's drug allergy list, history of present illness and physical findings on examination. Work-up in this patient includes x-ray of the pelvis and left hip, CT scan of the head, cervical spine and facial bones all without contrast. I reviewed the results. Patient has no acute, emergent medical issue. Counseled pt/family regarding: diagnosis, need for follow-up, rad results Medical Desision Making - Diagnostic Testing Diagnostic test were ordered, analyzed, and reviewed by me: Yes Radiological Interpretation: Interpreted by me, Reviewed by me, Teleradiologist Report - Risk of complications Low Risk: Low risk of morbidity from additional dx testing or treatment - Departure Departure Disposition: Home Clinical Impression: Fall with no significant injury, Multiple contusions Condition: Stable Critical Care Time: No Referrals: MALINI FRY [Primary Care Provider] - Follow up/PCP as directed Additional Instructions: Use ibuprofen and ice pack for pain control. Follow-up with your primary care physician for further evaluation and management. Continue medication as prescribed.
[2023-04-21 01:05] VITALS: PULSE 63
[2023-04-21 02:14] VITALS: BP 116/49; O2SAT 98
--- NOTE | 2023-04-21 04:42 | XRAY ---
CLINICAL HISTORY:Fall injury COMPARISON:None; TECHNIQUES:Non-Contrast CT scan of the maxillofacial region was performed, with sagittal and coronal multiplanar reconstruction. FINDINGS: Nasal Septum: Midline. Turbinates: Thickening of the mucosa covering the inferior turbinates. No evidence of jacinto bullosa or paradoxical curvature. Uncinate Processes: No deviation or bulla formation. O-M UNIT: Infundibula and hiatus semilunaris are widely patent. SINUSES: The frontal, sphenoid, maxillary sinuses and ethmoid air cells are well pneumatized. Fovea Ethmoidalis: Normal position. Fovea ethmoidalis and cribriform plate are not low lying. Nasopharynx: Unremarkable. Facial Bones: Unremarkable. IMPRESSION: No evidence of osseous injury in the CT maxillofacial region. Electronically Signed by: Irma Salinas MD. (04/20/2023 23:43:43 ARBOREAL SCIENTIST)
--- NOTE | 2023-04-21 04:42 | XRAY ---
CLINICAL HISTORY:Fall injury COMPARISON:None; TECHNIQUES:Multiple axial sections of the cervical spine were acquired without intravenous contrast administration. Reformatted images were obtained. FINDINGS: Reduced bone density. No acute fracture or subluxation. Grade 1 retrolisthesis of C5 relative to C6 is seen, likely degenerative. The vertebral body heights are maintained. Moderate narrowing of intervertebral disc space with anterior posterior marginal osteophytes and endplate changes are seen in C5-C6 and C6-C7 resulting in moderate narrowing of bilateral neural foramina at these levels. Mild narrowing of intervertebral disc space is seen C4-C5. Mild facet joint hypertrophic arthropathy is present. Grossly normal paraspinal soft tissues. Bilateral hypodense thyroid nodules. IMPRESSION: No acute fracture or traumatic subluxation. Grade 1 retrolisthesis of C5-C6, likely degenerative. Moderate spondylitic degenerative changes were seen in the mid-cervical spine. Bilateral thyroid nodules are suggested. Ultrasound correlation would be helpful. Electronically Signed by: Irma Salinas MD. (04/21/2023 00:13:09 LOG MARKER)
--- NOTE | 2023-04-21 04:46 | XRAY ---
CLINICAL HISTORY:Fall injury COMPARISON:01-15-2023 TECHNIQUE:Axial non-contrast CT scan of the brain was performed from the skull base to the high parietal region. FINDINGS: The visualized brain parenchyma shows urbina-white matter differentiation.Mild age-related cortical atrophic changes are seen, pronounced in the bifrontal lobes. No midline shift.No intracerebral or extra axial hematoma.Normal size and configuration of the cerebral ventricles.Normal CT appearance of the posterior fossa structures.The osseous structures in the skull base are unremarkable. No definite calvarium fractures.Scanned paranasal sinuses and mastoid air cells are clear. IMPRESSION: No acute intracranial abnormality.Age related parenchymal atrophy changes are noted. As compared to prior CT study dated 01/05/2023, no significant interval change. Electronically Signed by: Irma Salinas MD. (04/20/2023 23:41:36 ELECTRICAL PROSPECTING ENGINEER)
--- NOTE | 2023-04-21 08:56 | XRAY ---
Indication: Pain following fall. Comparison: None AP pelvis and 2 view left hip demonstrates osteopenia, small bilateral superior acetabular spurring, lumbosacral junction degenerative facet hypertrophy, lower lumbar fusion hardware, and tiny proximal left thigh calcified granuloma. No other bony, articular, or soft tissue abnormalities.
== END 2023-04-21 02:21 | disposition home or self-care (01) ==
LOC: ED 22:15
DX: S00.83XA Contusion of other part of head, initial encounter (principal); S70.02XA Contusion of left hip, initial encounter; W01.0XXA Fall on same level from slipping, tripping and stumbling without subsequent striking against object, initial encounter; Y93.01 Activity, walking, marching and hiking; E78.5 Hyperlipidemia, unspecified; I10 Essential (primary) hypertension; Z79.899 Other long term (current) drug therapy
CPT/HCPCS: 70450; 70486; 72125; 73502; 99283

== ENCOUNTER 2024-02-12 20:41 | Observation (INO) | payer MEDICARE ==
--- NOTE | 2024-02-12 21:38 | ERPHSYRPT ---
- History of Present Illness Time Seen by Provider: 02/12/24 20:54 Source: patient, family Exam Limitations: no limitations Patient Subjective Stated Complaint: pt states that she has been feeling "weird" since Wednesday 02/07 which she mentioned to her physician at an office appt that day and was prescribed zofran odt PRN which she has used intermittently. pt reports slight nausea at this time but otherwise her complaints are very vague including 'feeling weird" and "shaky". Triage Nursing Assessment: pt ambulated to room 6 independently with her personal rollator after standing on scale for weight acquisition and to bathroom to produce urine sample. pt is alert and oriented times three, able to move all extremities, able to speak in complete sentences, and with resp even and unlabored. skin is warm, dry, pink, and intact. bilat pupils are 3mm, round, equal, and reactive to light. bilat radial and pedal pulses palpable. heart sounds present and regular upon auscultation. bilat anterior/ posterior lung sounds clear throughout. abd soft, obese, nontender to touch, nondistended, and with positive bowel sounds in all quadrants. 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 bilat lower extremities equal and strong to plantar and dorsiflexion. no facial droop or slurred speech noted. pt denies at this time any pain, cp, vomiting, diarrhea, change in appetite, ricci, sob, difficulty breathing, lightheadedness, dizziness, difficulty with urinary or bowel elimination, or other ill feelings other than slight nausea, being shaky (no tremors noted), and feeling "weird". Physician History: 73-year-old female with history of diabetes mellitus type 2 on Mounjaro 5 mg weekly with a recent increase in the dose from 2.5, hypertension, hyperlipidemia, GERD, questionable history of congestive heart failure presented in the ER with complains of generalized feeling of not being well for the last 4 days. Patient reports she feels mild bloating, nausea/dyspepsia, dry tongue, feeling weak fatigued tired and jittery at times. She talked to her physician and was recommended Zofran which did not help much. Patient also reports she is rapidly losing weight since she has been on Mounjaro and has lost almost 4 pounds in the last 5 days. Denies any current abdominal pain but has some nausea. No chest pain palpitations or shortness of breath reported. No fever or chills or sick contact reported. She is not confused or altered at all. Allergies/Adverse Reactions: acetaminophen [From Darvocet-N] Allergy (Mild, Verified 02/12/24 20:57) empagliflozin [From Jardiance] Allergy (Mild, Verified 02/12/24 20:57) propoxyphene [From Darvocet-N] Allergy (Mild, Verified 02/12/24 20:57) sucralfate [From Carafate] Allergy (Mild, Verified 02/12/24 20:57) Home Medications: Famotidine 40 mg PO DAILY 07/02/17 [History] Nebivolol HCl [Bystolic] 10 mg PO BID 07/02/17 [History] Rosuvastatin Calcium 2 tab PO HS 07/02/17 [History] Vilazodone Hydrochloride [Viibryd] 40 mg PO DAILY 07/02/17 [History] Omeprazole 40 mg PO DAILY 06/17/21 [History] Ranolazine [Ranolazine ER] 1,000 mg PO BID 06/17/21 [History] Aspirin EC 81 mg [Ecotrin 81 mg] 1 tab PO DAILY 01/15/23 [History] Fluticasone/Vilanterol [Breo Ellipta 100-25 Mcg Inhalr] 1 puff PO DAILY 01/15/23 [History] Ondansetron ODT 4 MG [Zofran Odt 4 mg] 4 mg PO BID PRN PRN 02/12/24 [History] Tirzepatide [Mounjaro] 5 mg SQ WEEKLY 02/12/24 [History] Trazodone HCl 50 mg [Desyrel 50 mg] 50 mg PO HS 02/12/24 [History] Hx Tetanus, Diphtheria Vaccination/Date Given: No Hx Influenza Vaccination/Date Given: No Hx Pneumococcal Vaccination/Date Given: No Immunizations Up to Date: No Travel Risk - International Travel Have you traveled outside of the country in past 3 weeks: No - Emerging Infectious Disease Are you exhibiting symptoms associated with any current EIDs: No - Review of Systems Constitutional: Fatigue, Weakness Eyes: No Symptoms Ears, Nose, & Throat: No Symptoms Respiratory: No Symptoms Cardiac: No Symptoms Abdominal/Gastrointestinal: Nausea Genitourinary Symptoms: No Symptoms Musculoskeletal: No Symptoms Skin: No Symptoms Neurological: No Symptoms Endocrine: No Symptoms Hematologic/Lymphatic: No Symptoms Immunological/Allergic: No Symptoms - Past Medical History Pertinent Past Medical History: Yes Neurological History: No Pertinent History ENT History: No Pertinent History Cardiac History: Angina Respiratory History: COPD Endocrine Medical History: No Pertinent History Musculoskeletal History: Arthritis, Other GI Medical History: GERD History: No Pertinent History Psycho-Social History: Anxiety, Depression Female Reproductive Disorders: No Pertinent History Other Medical History: pt left leg partially crippled, assessment recalled, - Past Surgical History Past Surgical History: Yes Neuro Surgical History: No Pertinent History Cardiac: No Pertinent History Respiratory: No Pertinent History Gastrointestinal: Cholecystectomy Genitourinary: No Pertinent History Musculoskeletal: Orthopedic Surgery Female Surgical History: Tubal Ligation Other Surgical History: back surgery, carpal tunnel. assessment recalled, - Social History Smoking Status: Former smoker How long have you smoked: years Exposure to second hand smoke: No Drug Use: none Patient Lives Alone: Yes - Nursing Vital Signs Nursing Vital Signs: Initial Vital Signs Pulse Rate 72 02/12/24 21:03 Respiratory Rate 21 02/12/24 21:03 Blood Pressure 149/65 02/12/24 21:03 O2 Sat by Pulse Oximetry 99 02/12/24 21:03 Pain Scale Pain Intensity 0 - Physical Exam General Appearance: no apparent distress, alert Eye Exam: PERRL/EOMI, EOM palsy/anisocoria Ears, Nose, Throat Exam: TMs normal, pharynx normal Neck Exam: normal inspection, non-tender, supple, full range of motion Respiratory Exam: normal breath sounds, lungs clear Cardiovascular Exam: regular rate/rhythm, normal heart sounds Gastrointestinal/Abdomen Exam: soft, normal bowel sounds, No tenderness, No distention, No guarding Back Exam: normal inspection, normal range of motion Extremity Exam: normal inspection, normal range of motion, pelvis stable Neurologic Exam: alert, oriented x 3, cooperative, flexible nanny II-XII nml as tested, normal mood/affect, nml cerebellar function, nml station & gait, sensation nml, No motor deficits Skin Exam: normal color SpO2 Interpretation: normal SpO2: 98 O2 Delivery: Room Air - Course EKG Interpreted by Me: RATE ([id number]), A-fib, Left Neely Deviation, NORMAL INTERVALS, Left Bundle Branch Block Ordered Tests: Active Orders 24 hr Category Date Time Status EKG-ER Only STAT Care 02/12/24 21:30 Active IV Insertion STAT Care 02/12/24 21:30 Active NPO (ED) STAT Care 02/12/24 21:30 Active Orthostatic Vital Signs STAT Care 02/12/24 21:31 Active CHEST 1 VIEW (PORTABLE) Stat Exams 02/12/24 21:30 Taken CBC W DIFF Stat Lab 02/12/24 21:45 Completed CMP Stat Lab 02/12/24 21:45 Completed CULTURE,URINE Stat Lab 02/12/24 21:37 Received LIPASE Stat Lab 02/12/24 21:45 Completed Lactic Acid Stat Lab 02/12/24 21:50 Completed MAG [MAGNESIUM] Stat Lab 02/12/24 21:45 Completed TROPONIN Q4H Lab 02/12/24 21:45 Completed TROPONIN Q4H Lab 02/13/24 01:30 Ordered TROPONIN Q4H Lab 02/13/24 05:30 Ordered UA W/RFX UR CULTURE Stat Lab 02/12/24 21:37 Completed Transfer Order Routine Transfer 02/12/24 Ordered Medication Summary Discontinued Medications Generic Name Dose Route Start Last Admin Trade Name Freq PRN Reason Stop Dose Admin Sodium Chloride 500 mls @ 500 mls/hr 02/12/24 21:31 02/12/24 23:03 Sodium Chloride 0.9% 500 Ml IV 02/12/24 22:30 Infused .Q1H ONE Infusion Sodium Chloride Confirm 02/12/24 21:52 Sodium Chloride 0.9% 500 Ml Administered 02/12/24 21:53 Dose 500 mls @ ud IV .STK-MED ONE Ceftriaxone Sodium 2 gm in 100 mls @ 200 mls/hr 02/12/24 22:38 02/12/24 23:21 Rocephin 2 Gm/100 Ml Nacl IV 02/12/24 23:07 Infused STAT ONE Infusion Ceftriaxone Sodium Confirm 02/12/24 22:42 Rocephin 2 Gm/100 Ml Nacl Administered 02/12/24 22:43 Dose 2 gm in 100 mls @ ud IV .STK-MED ONE Ondansetron HCl 4 mg 02/12/24 21:31 02/12/24 22:01 Ondansetron Hcl 4 Mg/2 Ml Vial IV 02/12/24 21:32 4 mg STAT ONE Administration Ondansetron HCl Confirm 02/12/24 21:52 Ondansetron Hcl 4 Mg/2 Ml Vial Administered 02/12/24 21:53 Dose 4 mg .ROUTE .STK-MED ONE Lab/Rad Data: Laboratory Result Diagrams 02/12/24 21:45 02/12/24 21:45 Laboratory Results 02/12/24 02/12/24 02/12/24 Range/Units 21:50 21:45 21:45 WBC (4.0-10.5) x10^3/uL RBC (4.1-5.4) x10^6/uL Hgb (12.0-16.0) g/dL Hct (35-47) % MCV (78-100) fL MCH (26-32) pg MCHC (32-36) g/dL RDW (11.5-14.0) % Plt Count (150-450) x10^3/uL MPV (7.5-11.0) fL Gran % (36.0-66.0) % Immature Gran % (Auto) (0.00-0.4) % Nucleat RBC Rel Count (0.00-0.1) % Eos # (Auto) (0-0.5) x10^3/uL Immature Gran # (Auto) (0.00-0.03) x10^3u/L Absolute Lymphs (auto) (1.0-4.6) x10^3/uL Absolute Monos (auto) (0.0-1.3) x10^3/uL Absolute Nucleated RBC (0.00-0.01) x10^3u/L Lymphocytes % (24.0-44.0) % Monocytes % (0.0-12.0) % Eosinophils % (0.00-5.0) % Basophils % (0.0-0.4) % Absolute Granulocytes (1.4-6.9) x10^3/uL Basophils # (0-0.4) x10^3/uL Sodium 134 L (135-145) mmol/L Potassium 4.4 (3.5-5.1) mmol/L Chloride 102 (98-107) mmol/L Carbon Dioxide 22 (22-30) mmol/L Anion Gap 14.8 (5-15) MEQ/L BUN 17 (7-17) mg/dL Creatinine 0.80 (0.52-1.04) mg/dL Estimated GFR 76.8 ML/MIN Glucose 97 (74-106) mg/dL Lactic Acid 1.9 (0.4-2.0) Calcium 9.0 (8.4-10.2) mg/dL Magnesium 1.6 (1.6-2.3) mg/dL Total Bilirubin 0.70 (0.2-1.3) mg/dL AST 32 (14-36) U/L ALT 22 (0-35) U/L Alkaline Phosphatase 36 L (38-126) U/L Troponin I < 0.012 (0.000-0.033) ng/mL Serum Total Protein 7.2 (6.3-8.2) g/dL Albumin 3.9 (3.5-5.0) g/dL Lipase 96 (23-300) U/L Urine Color (Yellow) Urine Appearance (Clear) Urine pH (4.6-8.0) Ur Specific [place] (1.005-1.030) Urine Protein (Negative) Urine Glucose (UA) (Negative) mg/dL Urine Ketones (Negative) Urine Blood (Negative) Urine Nitrite (Negative) Urine Bilirubin (Negative) Urine Urobilinogen (0.2) mg/dL Ur Leukocyte Esterase (Negative) U Hyaline Cast (Auto) (0-2) /LPF Urine Microscopic RBC (0-5) /HPF Urine Microscopic WBC (0-5) /HPF Ur Epithelial Cells (None Seen) /HPF Urine Bacteria (None Seen) /HPF Urine Culture Reflexed (NO) 02/12/24 02/12/24 Range/Units 21:45 21:37 WBC 5.7 (4.0-10.5) x10^3/uL RBC 3.77 L (4.1-5.4) x10^6/uL Hgb 12.8 (12.0-16.0) g/dL Hct 37.1 (35-47) % MCV 98.4 (78-100) fL MCH 34.0 H (26-32) pg MCHC 34.5 (32-36) g/dL RDW 12.1 (11.5-14.0) % Plt Count 172 (150-450) x10^3/uL MPV 10.0 (7.5-11.0) fL Gran % 53.5 (36.0-66.0) % Immature Gran % (Auto) 0.2 (0.00-0.4) % Nucleat RBC Rel Count 0.0 (0.00-0.1) % Eos # (Auto) 0.06 (0-0.5) x10^3/uL Immature Gran # (Auto) 0.01 (0.00-0.03) x10^3u/L Absolute Lymphs (auto) 2.05 (1.0-4.6) x10^3/uL Absolute Monos (auto) 0.50 (0.0-1.3) x10^3/uL Absolute Nucleated RBC 0.00 (0.00-0.01) x10^3u/L Lymphocytes % 36.0 (24.0-44.0) % Monocytes % 8.8 (0.0-12.0) % Eosinophils % 1.1 (0.00-5.0) % Basophils % 0.4 (0.0-0.4) % Absolute Granulocytes 3.06 (1.4-6.9) x10^3/uL Basophils # 0.02 (0-0.4) x10^3/uL Sodium (135-145) mmol/L Potassium (3.5-5.1) mmol/L Chloride (98-107) mmol/L Carbon Dioxide (22-30) mmol/L Anion Gap (5-15) MEQ/L BUN (7-17) mg/dL Creatinine (0.52-1.04) mg/dL Estimated GFR ML/MIN Glucose (74-106) mg/dL Lactic Acid (0.4-2.0) Calcium (8.4-10.2) mg/dL Magnesium (1.6-2.3) mg/dL Total Bilirubin (0.2-1.3) mg/dL AST (14-36) U/L ALT (0-35) U/L Alkaline Phosphatase (38-126) U/L Troponin I (0.000-0.033) ng/mL Serum Total Protein (6.3-8.2) g/dL Albumin (3.5-5.0) g/dL Lipase (23-300) U/L Urine Color Yellow (Yellow) Urine Appearance Clear (Clear) Urine pH 6.5 (4.6-8.0) Ur Specific [place] <=1.005 (1.005-1.030) Urine Protein Negative (Negative) Urine Glucose (UA) Negative (Negative) mg/dL Urine Ketones Negative (Negative) Urine Blood Negative (Negative) Urine Nitrite Negative (Negative) Urine Bilirubin Negative (Negative) Urine Urobilinogen 1.0 A (0.2) mg/dL Ur Leukocyte Esterase Moderate A (Negative) U Hyaline Cast (Auto) NONE SEEN (0-2) /LPF Urine Microscopic RBC 0-2 (0-5) /HPF Urine Microscopic WBC 21-50 A (0-5) /HPF Ur Epithelial Cells None Seen (None Seen) /HPF Urine Bacteria Few A (None Seen) /HPF Urine Culture Reflexed YES (NO) - Progress Progress: improved Progress Note: 02/12/24 23:39 73-year-old is evaluated in the ER for generalized weakness jitteriness, nausea/dyspepsia for the last few days. Patient EKG showed A-fib rate controlled. No history of atrial fibrillation. Patient is not anticoagulated. Has negative orthostatics. Given gentle hydration lungs bilateral clear to auscultation and chest x-ray negative for any acute cardiopulmonary findings reviewed by me. Workup showed normal white count, fairly unremarkable chemistries and negative troponins. Patient does have UTI and given a dose of Rocephin. I believe patient's symptoms are partly because of Mounjaro side effect with recent increase in the dose and also partially from new onset atrial fibrillation. Discussed the results of workup with patient and family and recommended observation admission which they agreed. I have discussed with Dr. Gant patient is being admitted for further evaluation and management. Discussed with DrPatsy: Other (Dr. Talley [id number]) Will see patient in: hospital (observation) Counseled pt/family regarding: lab results, diagnosis, rad results Medical Desision Making - Independent Historian Additional History obtained from: Child - Discussion of managment Care discussed with:: hospitalist (Dr. Talley) Reviewed:: Test results Agreed on:: Treatment plan, place in obs Will see patient: in hospital - Diagnostic Testing Diagnostic test were ordered, analyzed, and reviewed by me: Yes Radiological Interpretation: Interpreted by me, Reviewed by me - Risk of complications The pt has a high risk of morbidity or mortality based on: Decision regarding hospitilization or escalation of hosp level of care - Departure Departure Disposition: Observation Clinical Impression: New onset atrial fibrillation, Acute UTI (urinary tract infection) Condition: Stable Critical Care Time: No Referrals: MALINI FRY [Primary Care Provider] - Follow up/PCP as directed
[2024-02-12 21:52] LABS: Absolute Neutrophil Ct (ANC) 3.06 x10^3/uL (1.4-6.9); BASOPHIL % 0.4 % (0.0-0.4); Basophil (Absolute #) 0.02 x10^3/uL (0-0.4); Eosinophil % 1.1 % (0.00-5.0); Eosinophil (Absolute #) 0.06 x10^3/uL (0-0.5); Hematocrit 37.1 % (35-47); Hemoglobin 12.8 g/dL (12.0-16.0); IMMATURE GRAN # 0.01 x10^3u/L (0.00-0.03); IMMATURE GRAN % 0.2 % (0.00-0.4); Lymphocyte (Absolute #) 2.05 x10^3/uL (1.0-4.6); Mean Cell Volume 98.4 fL (78-100); Mean Corpuscular Hgb Concent. 34.5 g/dL (32-36); Monocytes % 8.8 % (0.0-12.0); Neutrophil % 53.5 % (36.0-66.0); Platelet Count 172 x10^3/uL (150-450); Red Blood Count 3.77 x10^6/uL (4.1-5.4); Red Cell Distribution Width 12.1 % (11.5-14.0); White Blood Count 5.7 x10^3/uL (4.0-10.5)
[2024-02-12] MEDS ORDERED: Zofran 4 MG/2 ML VIAL ONE (21:52)
[2024-02-12] MEDS ORDERED: Sodium Chloride 0.9% 500 ML 500 ML IV ONE (21:52)
[2024-02-12 21:59] LABS: Appearance Clear (Clear); Bacteria Few /HPF (None Seen); Bilirubin Negative (Negative); Blood Negative (Negative); Epithelial Cells None Seen /HPF (None Seen); Glucose, Urine Negative (Negative); Hyaline Casts NONE SEEN /LPF (0-2); Ketones Negative (Negative); Leukocyte Esterase Moderate (Negative); Nitrite Negative (Negative); Ph 6.5 (4.6-8.0); Protein,Urine Dip Negative (Negative); RBC 0-2 /HPF (0-5); Specific Gravity <=1.005 (1.005-1.030); WBC 21-50 /HPF (0-5)
[2024-02-12] MEDS: Sodium Chloride 0.9% 500 ML 500 ML IV ONE (22:00)
[2024-02-12 22:01] LABS: ADD URINE CULTURE? YES (NO)
[2024-02-12] MEDS: Zofran 4 MG/2 ML VIAL IV ONE (22:01)
[2024-02-12 22:19] LABS: ALBUMIN 3.9 g/dL (3.5-5.0); ALKALINE PHOSPHATASE 36 U/L (38-126); ANION GAP 14.8 MEQ/L (5-15); BLOOD UREA NITROGEN 17 mg/dL (7-17); CHLORIDE 102 mmol/L (98-107); Carbon Dioxide 22 mmol/L (22-30); EST GLOMERULAR FILTRATION RATE 76.8 ML/MIN; Glucose 97 mg/dL (74-106); LIPASE 96 U/L (23-300); Potassium 4.4 mmol/L (3.5-5.1); SGOT/AST 32 U/L (14-36); SGPT/ALT 22 U/L (0-35); SODIUM 134 mmol/L (135-145); TROPONIN < 0.012 ng/mL (0.000-0.033); Total Protein 7.2 g/dL (6.3-8.2)
[2024-02-12] MEDS ORDERED: ROCEPHIN 2 GM/100 ML NACL 2 GM/100 ML IVPB IV ONE (22:42)
[2024-02-12] MEDS: ROCEPHIN 2 GM/100 ML NACL 2 GM/100 ML IVPB IV ONE (22:45)
[2024-02-13] MEDS ORDERED: ZOFRAN ODT 4 MG PO PRN (01:40)
[2024-02-13] MEDS ORDERED: PROVENTIL 2.5 MG/3 ML NEB IH PRN (01:40)
--- NOTE | 2024-02-13 01:52 | PCM.HP ---
History of Present Illness - Chief Complaint Chief Complaint: UTI Date: 02/13/24 History of Present Illness: Ms. Madsen is a 73 year-old female with HTN, HLD, DM2, and a chart diagnosis of CHF who presents with fatigue, shakiness, weakness, nausea, and vomiting. She admits to 4 days of symptoms, and during that time, her blood sugar checks at home have been reading in the 70s-80s in the setting of her PCP telling her to double her Mounjaro dose. Upon arrival to [facility], her initial EKG read as Afib but was actually NSR, her laboratory data revealed hyponatremia and a UTI, and her chest imaging was clear. On my examination, she is resting comfortably denying any current fevers, chills, nausea, vomiting, diarrhea, syncope, presyncope, visual changes, orthopnea, PND, odynophagia, dysphagia, chest pain, shortness of breath, belly pain, dysuria, hematuria, melena, hematochezia, or neurological changes. All other systems were reviewed and were negative. - Review of Systems Constitutional: Other ( PER HPI) Medications & Allergies Home Medications: Home Medication List Famotidine 40 mg PO DAILY 07/02/17 [History Confirmed 02/12/24] Nebivolol HCl [Bystolic] 10 mg PO BID 07/02/17 [History Confirmed 02/12/24] Rosuvastatin Calcium 2 tab PO HS 07/02/17 [History Confirmed 02/12/24] Vilazodone Hydrochloride [Viibryd] 40 mg PO DAILY 07/02/17 [History Confirmed 02/12/24] Omeprazole 40 mg PO DAILY 06/17/21 [History Confirmed 02/12/24] Ranolazine [Ranolazine ER] 1,000 mg PO BID 06/17/21 [History Confirmed 02/12/24] Albuterol 2.5 mg/3 ml Neb [Proventil 2.5 mg/3 ml Neb] 2.5 mg IH Q4H PRN PRN 06/26/21 [Rx Confirmed 02/12/24] Aspirin EC 81 mg [Ecotrin 81 mg] 1 tab PO DAILY 01/15/23 [History Confirmed 02/12/24] Fluticasone/Vilanterol [Breo Ellipta 100-25 Mcg Inhalr] 1 puff PO DAILY 01/15/23 [History Confirmed 02/12/24] Ondansetron ODT 4 MG [Zofran Odt 4 mg] 4 mg PO BID PRN PRN 02/12/24 [History Confirmed 02/12/24] Tirzepatide [Mounjaro] 5 mg SQ WEEKLY 02/12/24 [History Confirmed 02/12/24] Trazodone HCl 50 mg [Desyrel 50 mg] 50 mg PO HS 02/12/24 [History Confirmed 02/12/24] Allergies/Adverse Reactions: Allergies Allergy/AdvReac Type Severity Reaction Status Date / Time acetaminophen Allergy Mild Verified 02/12/24 20:57 [From Darvocet-N] empagliflozin Allergy Mild Verified 02/12/24 20:57 [From Jardiance] propoxyphene Allergy Mild Verified 02/12/24 20:57 [From Darvocet-N] sucralfate [From Carafate] Allergy Mild Verified 02/12/24 20:57 - Past Medical History Past Medical History: Yes Neurological History: No Pertinent History ENT History: Cataracts Cardiac History: Angina Respiratory History: CHF, COPD Endocrine Medical History: No Pertinent History, Diabetes Type II Musculoskelatal History: Arthritis, Osteoporosis, Other GI Medical History: GERD, Gallbladder Disease History: No Pertinent History Pyscho-Social History: Anxiety, Depression Reproductive Disorders: No Pertinent History Comment: pt left leg partially crippled, - Female History Are you now?: No - Past Surgical History Past Surgical History: Yes Neuro Surgical History: No Pertinent History Cardiac History: No Pertinent History, Cardiac Catheterization Respiratory Surgery: No Pertinent History GI Surgical History: Cholecystectomy Genitourinary Surgical Hx: No Pertinent History Musculskeletal Surgical Hx: Orthopedic Surgery Female Surgical History: Tubal Ligation Other Surgical History: back surgery, carpal tunnel Significant Family History: no pertinent family hx - Social History Smoking Status: Never smoker How long have you smoked: years Exposure to second hand smoke: No Alcohol: None Drug Use: none - Social Determinants of Health Will the patient participate in the screening: Yes Do you worry about a steady place to live?: No Do you have any problems with any of the following?: No known problems In the past 12 months,have you had to go without utilities?: No Have you or anyone in your house had to go without enough: No Transportation Issues: No Has anyone in your support network made you feel unsafe?: No Does the patient want assistance with any of the above?: No - Physical Exam Vital Signs: Vital Signs - 24 hr Temp Pulse Resp BP BP Pulse Ox 02/13/24 00:37 97.4 F 69 18 142/98 97 02/12/24 23:58 98 02/12/24 23:47 98 02/12/24 23:31 74 20 128/54 98 02/12/24 23:01 69 26 H 115/65 94 L 02/12/24 22:31 71 27 H 97/66 95 02/12/24 22:03 99 02/12/24 22:01 66 22 108/52 96 02/12/24 21:33 66 21 111/70 96 02/12/24 21:32 72 25 H 135/54 96 02/12/24 21:31 70 28 H 135/48 94 L 02/12/24 21:11 98.2 F 69 12 149/65 98 02/12/24 21:03 72 21 149/65 99 General Appearance: no apparent distress, alert Neurologic Exam: alert, oriented x 3, cooperative, normal mood/affect, nml cerebellar function, nml station & gait, sensation nml, No motor deficits Eye Exam: PERRL/EOMI, eyes nml inspection Ears, Nose, Throat Exam: normal ENT inspection, TMs normal, pharynx normal, moist mucous membranes Neck Exam: normal inspection, non-tender, supple, full range of motion Respiratory Exam: normal breath sounds, lungs clear, No respiratory distress Cardiovascular Exam: regular rate/rhythm, normal heart sounds, normal peripheral pulses Gastrointestinal/Abdomen Exam: soft, normal bowel sounds, No tenderness, No mass Back Exam: normal inspection, normal range of motion, No CVA tenderness, No vertebral tenderness Extremity Exam: normal inspection, normal range of motion, pelvis stable Skin Exam: normal color, warm, dry, No rash Lymphatic Exam: No adenopathy Results - Labs Lab/Micro Results: Lab Results-Last 24 Hours 02/12/24 02/12/24 02/12/24 Range/Units 21:37 21:45 21:45 WBC 5.7 (4.0-10.5) x10^3/uL RBC 3.77 L (4.1-5.4) x10^6/uL Hgb 12.8 (12.0-16.0) g/dL Hct 37.1 (35-47) % MCV 98.4 (78-100) fL MCH 34.0 H (26-32) pg MCHC 34.5 (32-36) g/dL RDW 12.1 (11.5-14.0) % Plt Count 172 (150-450) x10^3/uL MPV 10.0 (7.5-11.0) fL Gran % 53.5 (36.0-66.0) % Immature Gran % (Auto) 0.2 (0.00-0.4) % Nucleat RBC Rel Count 0.0 (0.00-0.1) % Eos # (Auto) 0.06 (0-0.5) x10^3/uL Immature Gran # (Auto) 0.01 (0.00-0.03) x10^3u/L Absolute Lymphs (auto) 2.05 (1.0-4.6) x10^3/uL Absolute Monos (auto) 0.50 (0.0-1.3) x10^3/uL Absolute Nucleated RBC 0.00 (0.00-0.01) x10^3u/L Lymphocytes % 36.0 (24.0-44.0) % Monocytes % 8.8 (0.0-12.0) % Eosinophils % 1.1 (0.00-5.0) % Basophils % 0.4 (0.0-0.4) % Absolute Granulocytes 3.06 (1.4-6.9) x10^3/uL Basophils # 0.02 (0-0.4) x10^3/uL Sodium 134 L (135-145) mmol/L Potassium 4.4 (3.5-5.1) mmol/L Chloride 102 (98-107) mmol/L Carbon Dioxide 22 (22-30) mmol/L Anion Gap 14.8 (5-15) MEQ/L BUN 17 (7-17) mg/dL Creatinine 0.80 (0.52-1.04) mg/dL Estimated GFR 76.8 ML/MIN Glucose 97 (74-106) mg/dL Lactic Acid (0.4-2.0) Calcium 9.0 (8.4-10.2) mg/dL Magnesium (1.6-2.3) mg/dL Total Bilirubin 0.70 (0.2-1.3) mg/dL AST 32 (14-36) U/L ALT 22 (0-35) U/L Alkaline Phosphatase 36 L (38-126) U/L Troponin I < 0.012 (0.000-0.033) ng/mL Serum Total Protein 7.2 (6.3-8.2) g/dL Albumin 3.9 (3.5-5.0) g/dL Lipase 96 (23-300) U/L Urine Color Yellow (Yellow) Urine Appearance Clear (Clear) Urine pH 6.5 (4.6-8.0) Ur Specific Channing <=1.005 (1.005-1.030) Urine Protein Negative (Negative) Urine Glucose (UA) Negative (Negative) mg/dL Urine Ketones Negative (Negative) Urine Blood Negative (Negative) Urine Nitrite Negative (Negative) Urine Bilirubin Negative (Negative) Urine Urobilinogen 1.0 A (0.2) mg/dL Ur Leukocyte Esterase Moderate A (Negative) U Hyaline Cast (Auto) NONE SEEN (0-2) /LPF Urine Microscopic RBC 0-2 (0-5) /HPF Urine Microscopic WBC 21-50 A (0-5) /HPF Ur Epithelial Cells None Seen (None Seen) /HPF Urine Bacteria Few A (None Seen) /HPF Urine Culture Reflexed YES (NO) 02/12/24 02/12/24 Range/Units 21:45 21:50 WBC (4.0-10.5) x10^3/uL RBC (4.1-5.4) x10^6/uL Hgb (12.0-16.0) g/dL Hct (35-47) % MCV (78-100) fL MCH (26-32) pg MCHC (32-36) g/dL RDW (11.5-14.0) % Plt Count (150-450) x10^3/uL MPV (7.5-11.0) fL Gran % (36.0-66.0) % Immature Gran % (Auto) (0.00-0.4) % Nucleat RBC Rel Count (0.00-0.1) % Eos # (Auto) (0-0.5) x10^3/uL Immature Gran # (Auto) (0.00-0.03) x10^3u/L Absolute Lymphs (auto) (1.0-4.6) x10^3/uL Absolute Monos (auto) (0.0-1.3) x10^3/uL Absolute Nucleated RBC (0.00-0.01) x10^3u/L Lymphocytes % (24.0-44.0) % Monocytes % (0.0-12.0) % Eosinophils % (0.00-5.0) % Basophils % (0.0-0.4) % Absolute Granulocytes (1.4-6.9) x10^3/uL Basophils # (0-0.4) x10^3/uL Sodium (135-145) mmol/L Potassium (3.5-5.1) mmol/L Chloride (98-107) mmol/L Carbon Dioxide (22-30) mmol/L Anion Gap (5-15) MEQ/L BUN (7-17) mg/dL Creatinine (0.52-1.04) mg/dL Estimated GFR ML/MIN Glucose (74-106) mg/dL Lactic Acid 1.9 (0.4-2.0) Calcium (8.4-10.2) mg/dL Magnesium 1.6 (1.6-2.3) mg/dL Total Bilirubin (0.2-1.3) mg/dL AST (14-36) U/L ALT (0-35) U/L Alkaline Phosphatase (38-126) U/L Troponin I (0.000-0.033) ng/mL Serum Total Protein (6.3-8.2) g/dL Albumin (3.5-5.0) g/dL Lipase (23-300) U/L Urine Color (Yellow) Urine Appearance (Clear) Urine pH (4.6-8.0) Ur Specific Channing (1.005-1.030) Urine Protein (Negative) Urine Glucose (UA) (Negative) mg/dL Urine Ketones (Negative) Urine Blood (Negative) Urine Nitrite (Negative) Urine Bilirubin (Negative) Urine Urobilinogen (0.2) mg/dL Ur Leukocyte Esterase (Negative) U Hyaline Cast (Auto) (0-2) /LPF Urine Microscopic RBC (0-5) /HPF Urine Microscopic WBC (0-5) /HPF Ur Epithelial Cells (None Seen) /HPF Urine Bacteria (None Seen) /HPF Urine Culture Reflexed (NO) - Radiology Impressions Radiology Exams & Impressions: Radiology Procedures Category Date Time Status CHEST 1 VIEW (PORTABLE) Stat Exams 02/12/24 21:30 Taken Assessment/Plan (1) Acute UTI (urinary tract infection) Current Visit: Yes Status: Acute Assessment & Plan: ASSESSMENT 1. Urinary Tract Infection 2. Hyponatremia 3. Hypoglycemia 4. Type II Diabetes Mellitus 5. Hypertension 6. Hyperlipidemia 7. Chart Diagnosis of CHF PLAN 1. Treat UTI with ceftriaxone; UCx pending 2. EKG DID NOT show Afib; it was actually NSR 3. Gentle fluids 4. Hold Mounjaro; I would like her blood sugars to be above 100 5. Continue outpatient cardiac regimen Lovenox The entirety of this encounter was done via telemedicine with audio and visual Consent was obtained for a telemedicine encounter. Jluis Talley MD Pulmonary and Critical Care Medicine Code(s): N39.0 - URINARY TRACT INFECTION, SITE NOT SPECIFIED Telemedicine Encounter - Telemedicine Encounter Telemedicine Encounter: The entirety of this encounter was performed via Telemedicine"
[2024-02-13] MEDS: ROCEPHIN 1 GM / 100 ML NaCl 1 GM/100 ML IVPB IV SCH ×2 (01:57→21:21)
[2024-02-13] MEDS: Sodium Chloride 0.9% 1000 ML 1,000 ML IV SCH (02:46)
[2024-02-13 05:43] LABS: Absolute Neutrophil Ct (ANC) 3.85 x10^3/uL (1.4-6.9); BASOPHIL % 0.3 % (0.0-0.4); Basophil (Absolute #) 0.02 x10^3/uL (0-0.4); Eosinophil % 0.8 % (0.00-5.0); Eosinophil (Absolute #) 0.05 x10^3/uL (0-0.5); Hematocrit 36.4 % (35-47); Hemoglobin 12.3 g/dL (12.0-16.0); IMMATURE GRAN # 0.02 x10^3u/L (0.00-0.03); IMMATURE GRAN % 0.3 % (0.00-0.4); Lymphocyte (Absolute #) 2.07 x10^3/uL (1.0-4.6); Lymphocytes % 31.1 % (24.0-44.0); Mean Cell Volume 98.4 fL (78-100); Mean Corpuscular Hemoglobin 33.2 pg (26-32); Mean Corpuscular Hgb Concent. 33.8 g/dL (32-36); Mean Platelet Volume 10.5 fL (7.5-11.0); Monocyte (Absolute #) 0.64 x10^3/uL (0.0-1.3); Monocytes % 9.6 % (0.0-12.0); Neutrophil % 57.9 % (36.0-66.0); Platelet Count 171 x10^3/uL (150-450); Red Cell Distribution Width 12.5 % (11.5-14.0); White Blood Count 6.7 x10^3/uL (4.0-10.5)
[2024-02-13 05:58] LABS: ALBUMIN 3.5 g/dL (3.5-5.0); ANION GAP 10.9 MEQ/L (5-15); BILIRUBIN,TOTAL 0.6 mg/dL (0.2-1.3); Calcium 8.7 mg/dL (8.4-10.2); Creatinine 1 0.77 mg/dL (0.52-1.04); EST GLOMERULAR FILTRATION RATE 80.4 ML/MIN; MAGNESIUM 1.7 mg/dL (1.6-2.3); Potassium 3.5 mmol/L (3.5-5.1); Total Protein 6.4 g/dL (6.3-8.2)
--- NOTE | 2024-02-13 07:47 | XRAY ---
Indication: General weakness. Comparison: January 16, 2023 Portable apical lordotic chest remains inflated and clear. Heart not enlarged. Bony thorax intact again with osteopenia and mild degenerative changes. No new/acute findings.
[2024-02-13] MEDS ORDERED: MEDICATION INTERVENTION MC SCH ×2 (08:30)
[2024-02-13] MEDS: Advair Hfa 115/21 Common canister IH SCH (08:44)
[2024-02-13] MEDS ORDERED: NON-FORMULARY ITEM (Fluticasone/Vilanterol [Breo Ellipta 100-25 Mcg Inhalr] 1 EACH Blst.W. PO SCH (10:00)
[2024-02-13] MEDS ORDERED: VILAZODONE HYDROCHLORIDE 40 MG PO SCH (10:00)
[2024-02-13] MEDS ORDERED: NON-FORMULARY ITEM (Omeprazole [Omeprazole] 40 MG Capsule.Dr) PO SCH (10:00)
[2024-02-13] MEDS ORDERED: NON-FORMULARY ITEM (Nebivolol Hcl [Bystolic] 10 MG Tablet) PO SCH (10:00)
[2024-02-13] MEDS ORDERED: NON-FORMULARY ITEM (Famotidine [Famotidine] 40 MG Tablet) PO SCH (10:00)
[2024-02-13] MEDS ORDERED: NON-FORMULARY ITEM (Ranolazine [Ranolazine Er] 1,000 MG Tab.Er.12h) PO SCH (10:00)
[2024-02-13] MEDS: Bystolic 5 MG PO SCH (10:03)
[2024-02-13] MEDS: Protonix 40MG Tablet PO SCH (10:03)
[2024-02-13] MEDS: Pepcid 20 MG PO SCH (10:03)
[2024-02-13] MEDS: Ranexa 500 MG PO SCH (10:03)
[2024-02-13] MEDS: ECOTRIN 81 MG PO SCH (10:03)
[2024-02-13] MEDS: ENOXAPARIN SODIUM SQ SCH (10:04)
[2024-02-13] MEDS: DESYREL 50 MG PO SCH (21:22)
[2024-02-13] MEDS: Zocor 10MG PO SCH (21:23)
[2024-02-13] MEDS ORDERED: NON-FORMULARY ITEM (Rosuvastatin Calcium [Rosuvastatin Calcium] 5 MG Tablet) PO SCH (22:00)
[2024-02-14 07:34] VITALS: BP 114/55; PULSE 77; RESP 16; TEMP 98.3; O2SAT 96
[2024-02-14 07:39] LABS: Hematocrit 35.2 % (35-47); Hemoglobin 11.6 g/dL (12.0-16.0); Mean Cell Volume 100.3 fL (78-100); Mean Platelet Volume 10.2 fL (7.5-11.0); Platelet Count 145 x10^3/uL (150-450); Red Blood Count 3.51 x10^6/uL (4.1-5.4); Red Cell Distribution Width 12.8 % (11.5-14.0); White Blood Count 5.9 x10^3/uL (4.0-10.5)
[2024-02-14 07:52] LABS: ALBUMIN 3.4 g/dL (3.5-5.0); ANION GAP 11.3 MEQ/L (5-15); BILIRUBIN,TOTAL 0.5 mg/dL (0.2-1.3); Calcium 8.7 mg/dL (8.4-10.2); Creatinine 1 0.68 mg/dL (0.52-1.04); EST GLOMERULAR FILTRATION RATE 90.8 ML/MIN; Potassium 3.9 mmol/L (3.5-5.1); Total Protein 6.4 g/dL (6.3-8.2)
[2024-02-14] MEDS: Tums EX 750 MG PO ONE (08:18)
--- NOTE | 2024-02-14 10:50 | PCM.DS ---
Discharge Summary Date of Admission: 02/12/24 23:56 Date of Discharge: 02/14/24 Admitting Physician: KRISTY ROCK MD Primary Care Provider: MALINI FRY Allergies Allergies acetaminophen [From Darvocet-N] Allergy (Mild, Verified 02/12/24 20:57) empagliflozin [From Jardiance] Allergy (Mild, Verified 02/12/24 20:57) propoxyphene [From Darvocet-N] Allergy (Mild, Verified 02/12/24 20:57) sucralfate [From Carafate] Allergy (Mild, Verified 02/12/24 20:57) Hospital Summary - Hospital Course Hospital Course: Ms. Madsen is a 73 year-old female with HTN, HLD, DM2, and a chart diagnosis of CHF. She presented to ER with sxs of with fatigue, shakiness, weakness, nausea, and vomiting on 02/13/24. She admits to 4 days of symptoms, and during that time, her blood sugar checks at home have been reading in the 70s-80s in the setting of her PCP telling her to double her Mounjaro dose. Upon arrival to [facility], her initial EKG read as Afib but was actually NSR, her laboratory data revealed hyponatremia and a UTI, and her chest imaging was clear. She wanted to stay overnight last night d/t continued sensation of not feeling well and weakness. Pt was able to walk around the unit yesterday and did very well. She feels she is much better today and would like to go home. She did qualify for overnight home O2 per RT. SAVANNA De La Paz completed paperwork for home set-up. She Dneis CP, SOB, abd. pain, N/V/D. Will continue antibiotocs for UTI and follow urine culture OP. Explained to f/u with PCP this week. - Vitals & Intake/Output Vital Signs: Vital Signs Temperature 98.3 F 02/14/24 07:33 Pulse Rate 77 02/14/24 07:33 Respiratory Rate 16 02/14/24 07:33 Blood Pressure 114/55 02/14/24 07:33 O2 Sat by Pulse Oximetry 96 02/14/24 07:33 Intake & Output: Intake & Output 02/11/24 02/12/24 02/13/24 04/28/24 11:59 11:59 11:59 11:59 Intake Total 765 4215 Balance 765 421 Weight 88.6 kg - Lab Result Diagrams: 02/14/24 07:30 02/14/24 07:30 Lab Results-Last 24 Hrs: Lab Results-Last 24 Hours 02/13/24 02/13/24 02/13/24 Range/Units 11:44 16:27 20:55 WBC (4.0-10.5) x10^3/uL RBC (4.1-5.4) x10^6/uL Hgb (12.0-16.0) g/dL Hct (35-47) % MCV (78-100) fL MCH (26-32) pg MCHC (32-36) g/dL RDW (11.5-14.0) % Plt Count (150-450) x10^3/uL MPV (7.5-11.0) fL Sodium (135-145) mmol/L Potassium (3.5-5.1) mmol/L Chloride (98-107) mmol/L Carbon Dioxide (22-30) mmol/L Anion Gap (5-15) MEQ/L BUN (7-17) mg/dL Creatinine (0.52-1.04) mg/dL Estimated GFR ML/MIN Glucose (74-106) mg/dL POC Glucometer 120 H 87 90 (74 to 106) mg/dL Calcium (8.4-10.2) mg/dL Total Bilirubin (0.2-1.3) mg/dL AST (14-36) U/L ALT (0-35) U/L Alkaline Phosphatase (38-126) U/L Serum Total Protein (6.3-8.2) g/dL Albumin (3.5-5.0) g/dL 02/14/24 02/14/24 02/14/24 Range/Units 07:21 07:30 07:30 WBC 5.9 (4.0-10.5) x10^3/uL RBC 3.51 L (4.1-5.4) x10^6/uL Hgb 11.6 L (12.0-16.0) g/dL Hct 35.2 (35-47) % MCV 100.3 H (78-100) fL MCH 33.0 H (26-32) pg MCHC 33.0 (32-36) g/dL RDW 12.8 (11.5-14.0) % Plt Count 145 L (150-450) x10^3/uL MPV 10.2 (7.5-11.0) fL Sodium 139 (135-145) mmol/L Potassium 3.9 (3.5-5.1) mmol/L Chloride 109 H (98-107) mmol/L Carbon Dioxide 23 (22-30) mmol/L Anion Gap 11.3 (5-15) MEQ/L BUN 11 (7-17) mg/dL Creatinine 0.68 (0.52-1.04) mg/dL Estimated GFR 90.8 ML/MIN Glucose 98 (74-106) mg/dL POC Glucometer 99 (74 to 106) mg/dL Calcium 8.7 (8.4-10.2) mg/dL Total Bilirubin 0.50 (0.2-1.3) mg/dL AST 26 (14-36) U/L ALT 20 (0-35) U/L Alkaline Phosphatase 48 (38-126) U/L Serum Total Protein 6.4 (6.3-8.2) g/dL Albumin 3.4 L (3.5-5.0) g/dL Micro Results-Entire Visit: Microbiology 02/12/24 21:37 Urine Culture - Preliminary Urine, Void GRAM NEGATIVE ID AND SENSITIVITY PENDING Accuchecks Date 02/14/24 Date 02/13/24 Date 02/13/24 Date 02/13/24 Time 07:35 Time 21:00 Time 16:30 Time 11:50 - Radiology Exams Ordered Rad Exams-Entire Visit: Radiology Procedures Category Date Time Status CHEST 1 VIEW (PORTABLE) Stat Exams 02/12/24 21:30 Completed - Procedures and Test Procedures and Tests throughout Hospitalization: Therapy Orders & Screens 02/13/24 05:19 Oxygen Nasal Cannula 2 lpm Comment: Diagnosis: UTI 02/13/24 07:11 Respiratory MDI BID Comment: Diagnosis: UTI 02/13/24 20:22 Respiratory Therapy Assessment DAILY Comment: Diagnosis: UTI Discharge Exam General Appearance: no apparent distress, alert, obese Neurologic Exam: alert, oriented x 3, cooperative, normal mood/affect, nml cerebellar function, sensation nml, No motor deficits Eye Exam: PERRL, EOMI, eyes nml inspection Ears, Nose, Throat Exam: normal ENT inspection, pharynx normal, moist mucous membranes Neck Exam: normal inspection, non-tender, supple, full range of motion Respiratory Exam: normal breath sounds, lungs clear, No respiratory distress Cardiovascular Exam: regular rate/rhythm, normal heart sounds Gastrointestinal/Abdomen Exam: soft, No tenderness, No mass Pelvic Exam: deferred Rectal Exam: deferred Back Exam: normal inspection, normal range of motion, No CVA tenderness, No vertebral tenderness Extremity Exam: normal inspection, normal range of motion Skin Exam: normal color, warm, dry Final Diagnosis/Problem List - Final Discharge Diagnosis/Problem (1) Acute UTI (urinary tract infection) Current Visit: Yes Status: Acute Assessment & Plan: - ceftriaxone - UC gram negative- sensitivity pending - Will continue OP antibiotics and follow culture OP Code(s): N39.0 - URINARY TRACT INFECTION, SITE NOT SPECIFIED (2) Weakness Current Visit: Yes Status: Resolved Assessment & Plan: - 2:2 UTI - PT eval - resolved Code(s): R53.1 - WEAKNESS (3) Obesity (BMI 30-39.9) Current Visit: Yes Status: Chronic Assessment & Plan: - advised diet and exercise control Code(s): E66.9 - OBESITY, UNSPECIFIED (4) Oxygen desaturation during sleep Current Visit: Yes Status: Acute Assessment & Plan: - Overnight piulse ox for eval of home O2 need - Pt states she has been dx with sleep apnea in the past and does not want to use CPAP - Pt did qualify for home O2 at night per RT- paper completed by RN Code(s): G47.34 - IDIO SLEEP RELATED NONOBSTRUCTIVE ALVEOLAR HYPOVENTILATION - Discharge Discharge Date: 02/14/24 Disposition: Home, Self-Care Condition: Stable Prescriptions: Continue Famotidine 40 mg PO DAILY Nebivolol HCl [Bystolic] 10 mg PO BID Vilazodone Hydrochloride [Viibryd] 40 mg PO DAILY Rosuvastatin Calcium 2 tab PO HS Ranolazine [Ranolazine ER] 1,000 mg PO BID Omeprazole 40 mg PO DAILY Albuterol 2.5 mg/3 ml Neb [Proventil 2.5 mg/3 ml Neb] 2.5 mg IH Q4H PRN PRN PRN Reason: Shortness Of Breath/Wheezing Aspirin EC 81 mg [Ecotrin 81 mg] 1 tab PO DAILY Fluticasone/Vilanterol [Breo Ellipta 100-25 Mcg Inhalr] 1 puff PO DAILY Ondansetron ODT 4 MG [Zofran Odt 4 mg] 4 mg PO BID PRN PRN PRN Reason: Nausea Tirzepatide [Mounjaro] 5 mg SQ WEEKLY Trazodone HCl 50 mg [Desyrel 50 mg] 50 mg PO HS Instructions: Urinary Tract Infection, Adult (DC) Follow up with: MALINI FRY [Primary Care Provider] - Call for Appointment Forms: Discharge Instructions
== END 2024-02-14 11:40 | disposition home or self-care (01) ==
LOC: ED 20:41 → MED SURG 23:56
PROVIDERS: ADMIT Internal Medicine Critical Care Medicine; ATTEND Internal Medicine Critical Care Medicine
DX: N39.0 Urinary tract infection, site not specified (principal); R53.1 Weakness; E66.9 Obesity, unspecified; G47.34 Idiopathic sleep related nonobstructive alveolar hypoventilation; I10 Essential (primary) hypertension; E11.9 Type 2 diabetes mellitus without complications; E87.1 Hypo-osmolality and hyponatremia; R11.2 Nausea with vomiting, unspecified; Z79.899 Other long term (current) drug therapy
CPT/HCPCS: 36000; 36415; 71045; 80053; 81001; 82947; 83036; 83605; 83690; 83735; 84484; 85025; 85027; 87077; 87086; 87186; 93005; 93041; 93268; 94640; 94760; 94761; 94762; 96360; 96365; 96374; 99285; G0378; Q3014; J0696; J1650; J2405; A9270-GY

== ENCOUNTER 2024-12-08 17:02 | Emergency (ER) | payer MEDICARE, OTHER ==
[2024-12-08 17:22] VITALS: TEMP 96.6
--- NOTE | 2024-12-08 18:14 | ERPHSYRPT ---
- History of Present Illness Time Seen by Provider: 12/08/24 17:04 Source: patient, EMS, old records Exam Limitations: no limitations Patient Subjective Stated Complaint: shaky and weak Triage Nursing Assessment: Pt brought to the ER by EMS, vitals wnl, denies pain, "I just don't feel right, I feel like I did last time I was here", pulses normal, skin n/w/d, no difficulty breathing, denies chest pain, doesn't appear to be in any distress Physician History: 74 years old female with history of hypertension, hyperlipidemia, diabetes mellitus, questionable history of congestive heart failure presented in the ER with complains of generalized weakness fatigue tiredness and shakiness. Patient denies any nausea vomiting or diarrhea. No chest pain palpitations or shortness of breath. Patient reports she has been recovering from flu almost 2 weeks ago. No fever or chills reported. Patient reports having symptoms similar to last time when she had hypokalemia. Allergies/Adverse Reactions: acetaminophen [From Darvocet-N] Allergy (Mild, Verified 12/08/24 17:22) empagliflozin [From Jardiance] Allergy (Mild, Verified 12/08/24 17:22) propoxyphene [From Darvocet-N] Allergy (Mild, Verified 12/08/24 17:22) sucralfate [From Carafate] Allergy (Mild, Verified 12/08/24 17:22) Home Medications: Famotidine 40 mg PO DAILY 07/02/17 [History] Nebivolol HCl [Bystolic] 10 mg PO BID 07/02/17 [History] Rosuvastatin Calcium 10 mg PO HS 07/02/17 [History] Omeprazole 40 mg PO DAILY 06/17/21 [History] Ranolazine [Ranolazine ER] 1,000 mg PO BID 06/17/21 [History] Aspirin EC 81 mg [Ecotrin 81 mg] 1 tab PO DAILY 01/15/23 [History] Fluticasone/Vilanterol [Breo Ellipta 100-25 Mcg Inhalr] 1 puff PO DAILY 01/15/23 [History] Trazodone HCl 50 mg [Desyrel 50 mg] 100 mg PO HS 02/12/24 [History] Albuterol Sulfate [Albuterol Sulfate Hfa] 2 inh IH Q4-6HPRN PRN 12/08/24 [History] Alendronate Sodium 70 mg [Fosamax 70 MG] 70 mg PO WEEKLY 12/08/24 [Histor y] Semaglutide [Ozempic] 0.5 mg SQ WEEKLY 12/08/24 [History] hydroCHLOROthiazide [Hydrochlorothiazide] 12.5 mg PO DAILY 12/08/24 [History] Hx Tetanus, Diphtheria Vaccination/Date Given: No Hx Influenza Vaccination/Date Given: Yes Hx Pneumococcal Vaccination/Date Given: No Travel Risk - International Travel Have you traveled outside of the country in past 3 weeks: No - Emerging Infectious Disease Are you exhibiting symptoms associated with any current EIDs: No - Review of Systems Constitutional: Fatigue, Weakness Eyes: No Symptoms Ears, Nose, & Throat: No Symptoms Respiratory: No Symptoms Cardiac: No Symptoms Abdominal/Gastrointestinal: No Symptoms Genitourinary Symptoms: No Symptoms Musculoskeletal: Myalgias Skin: No Symptoms Neurological: No Symptoms Endocrine: No Symptoms Hematologic/Lymphatic: No Symptoms Immunological/Allergic: No Symptoms - Past Medical History Pertinent Past Medical History: Yes Neurological History: No Pertinent History ENT History: Cataracts Cardiac History: Angina Respiratory History: CHF, COPD Endocrine Medical History: No Pertinent History, Diabetes Type II Musculoskeletal History: Arthritis, Osteoporosis, Other GI Medical History: GERD, Gallbladder Disease History: No Pertinent History Psycho-Social History: Anxiety, Depression Female Reproductive Disorders: No Pertinent History Other Medical History: pt left leg partially crippled, - Past Surgical History Past Surgical History: Yes Neuro Surgical History: No Pertinent History Cardiac: No Pertinent History, Cardiac Catheterization Respiratory: No Pertinent History Gastrointestinal: Cholecystectomy Genitourinary: No Pertinent History Musculoskeletal: Orthopedic Surgery Female Surgical History: Tubal Ligation Other Surgical History: back surgery, carpal tunnel Significant Family History: no pertinent family hx - Social History Smoking Status: Never smoker How long have you smoked: years Exposure to second hand smoke: No Drug Use: none - Social Determinants of Health Will the patient participate in the screening: Yes Do you worry about a steady place to live?: No Do you have any problems with any of the following?: No known problems In the past 12 months,have you had to go without utilities?: No Transportation Issues: No Has anyone in your support network made you feel unsafe?: No Have you or anyone in your house had to go w/o enough food: No - Nursing Vital Signs Nursing Vital Signs: Initial Vital Signs Temperature 96.6 F 12/08/24 17:10 Pulse Rate 60 12/08/24 17:10 Respiratory Rate 23 12/08/24 17:10 Blood Pressure 141/39 12/08/24 17:10 O2 Sat by Pulse Oximetry 98 12/08/24 17:10 Pain Scale Pain Intensity 0 - Physical Exam General Appearance: no apparent distress, alert Eye Exam: PERRL/EOMI Ears, Nose, Throat Exam: normal ENT inspection Neck Exam: normal inspection, non-tender, supple, full range of motion Respiratory Exam: normal breath sounds, lungs clear Cardiovascular Exam: regular rate/rhythm, normal heart sounds Gastrointestinal/Abdomen Exam: soft, normal bowel sounds, No tenderness Back Exam: normal inspection, normal range of motion Extremity Exam: normal inspection, normal range of motion Neurologic Exam: alert, oriented x 3, cooperative Skin Exam: normal color SpO2 Interpretation: normal SpO2: 100 O2 Delivery: Room Air - Course EKG Interpreted by Me: RATE (60), Sinus Rhythm, Left [place] Deviation, prolonged QT interval, Q-wave, Non-specific ST Changes, Other (PVCs) Ordered Tests: Active Orders 24 hr Category Date Time Status EKG-ER Only STAT Care 12/08/24 17:59 Active IV Insertion STAT Care 12/08/24 20:12 Active CHEST 1 VIEW (PORTABLE) Stat Exams 12/08/24 17:59 Taken BMP Stat Lab 12/08/24 21:55 Completed CBC W DIFF Stat Lab 12/08/24 18:20 Completed CMP Stat Lab 12/08/24 18:31 Completed MAGNESIUM Stat Lab 12/08/24 18:31 Completed TROPONIN Q4H Lab 12/08/24 18:31 Completed TROPONIN Q4H Lab 12/08/24 21:55 Received TROPONIN Q4H Lab 12/09/24 02:00 Ordered Medication Summary Discontinued Medications Generic Name Dose Route Start Last Admin Trade Name Freq PRN Reason Stop Dose Admin Sodium Chloride 500 mls @ 500 mls/hr 12/08/24 19:01 12/08/24 21:19 Sodium Chloride 0.9% 500 Ml IV 12/08/24 20:00 500 mls/hr .Q1H ONE Infusion Sodium Chloride Confirm 12/08/24 20:12 Sodium Chloride 0.9% 500 Ml Administered 12/08/24 20:13 Dose 500 mls @ ud IV .STK-MED ONE Lab/Rad Data: Laboratory Result Diagrams 12/08/24 18:20 12/08/24 21:55 Laboratory Results 12/08/24 12/08/24 12/08/24 Range/Units 21:55 18:31 18:31 WBC (3.98-10.04) x10^3/uL RBC (3.93-5.22) x10^6/uL Hgb (11.2-15.7) g/dL Hct (34.1-44.9) % MCV (79.4-94.8) fL MCH (25.6-32.2) pg MCHC (32.2-35.5) g/dL RDW (11.7-14.4) % Plt Count (182-369) x10^3/uL MPV (9.4-12.3) fL Gran % (34.0-71.1) % Immature Gran % (Auto) (0.001-0.429) % Nucleat RBC Rel Count (0.00-0.2) % Eos # (Auto) (0.04-0.36) x10^3/uL Immature Gran # (Auto) (0.001-0.031) x10^3u/L Absolute Lymphs (auto) (1.18-3.74) x10^3/uL Absolute Monos (auto) (0.24-0.86) x10^3/uL Absolute Nucleated RBC (0.00-0.012) x10^3u/L Lymphocytes % (19.3-51.7) % Monocytes % (4.7-12.5) % Eosinophils % (0.7-5.8) % Basophils % (0.1-1.2) % Absolute Granulocytes (1.56-6.13) x10^3/uL Basophils # (0.01-0.08) x10^3/uL Sodium 130 L 127 L (135-145) mmol/L Potassium 4.2 4.3 (3.5-5.1) mmol/L Chloride 92 L 89 L (98-107) mmol/L Carbon Dioxide 27 27 (22-30) mmol/L Anion Gap 15.2 H 15.8 H (5-15) MEQ/L BUN 22 H 24 H (7-17) mg/dL Creatinine 0.69 0.73 (0.52-1.04) mg/dL Estimated GFR 89.9 85.2 ML/MIN Glucose 90 94 (74-106) mg/dL Calcium 8.7 9.0 (8.4-10.2) mg/dL Magnesium 1.7 (1.6-2.3) mg/dL Total Bilirubin 0.70 (0.2-1.3) mg/dL AST 36 (14-36) U/L ALT 26 (0-35) U/L Alkaline Phosphatase 48 (38-126) U/L Troponin I < 0.012 (0.000-0.033) ng/mL Serum Total Protein 7.0 (6.3-8.2) g/dL Albumin 4.2 (3.5-5.0) g/dL 12/08/24 Range/Units 18:20 WBC 9.1 (3.98-10.04) x10^3/uL RBC 3.87 L (3.93-5.22) x10^6/uL Hgb 12.7 (11.2-15.7) g/dL Hct 36.7 (34.1-44.9) % MCV 94.8 (79.4-94.8) fL MCH 32.8 H (25.6-32.2) pg MCHC 34.6 (32.2-35.5) g/dL RDW 12.5 (11.7-14.4) % Plt Count 193 (182-369) x10^3/uL MPV 8.6 L (9.4-12.3) fL Gran % 79.7 H (34.0-71.1) % Immature Gran % (Auto) 0.3 (0.001-0.429) % Nucleat RBC Rel Count 0.0 (0.00-0.2) % Eos # (Auto) 0.04 (0.04-0.36) x10^3/uL Immature Gran # (Auto) 0.03 (0.001-0.031) x10^3u/L Absolute Lymphs (auto) 1.27 (1.18-3.74) x10^3/uL Absolute Monos (auto) 0.49 (0.24-0.86) x10^3/uL Absolute Nucleated RBC 0.00 (0.00-0.012) x10^3u/L Lymphocytes % 14.0 L (19.3-51.7) % Monocytes % 5.4 (4.7-12.5) % Eosinophils % 0.4 L (0.7-5.8) % Basophils % 0.2 (0.1-1.2) % Absolute Granulocytes 7.20 H (1.56-6.13) x10^3/uL Basophils # 0.02 (0.01-0.08) x10^3/uL Sodium (135-145) mmol/L Potassium (3.5-5.1) mmol/L Chloride (98-107) mmol/L Carbon Dioxide (22-30) mmol/L Anion Gap (5-15) MEQ/L BUN (7-17) mg/dL Creatinine (0.52-1.04) mg/dL Estimated GFR ML/MIN Glucose (74-106) mg/dL Calcium (8.4-10.2) mg/dL Magnesium (1.6-2.3) mg/dL Total Bilirubin (0.2-1.3) mg/dL AST (14-36) U/L ALT (0-35) U/L Alkaline Phosphatase (38-126) U/L Troponin I (0.000-0.033) ng/mL Serum Total Protein (6.3-8.2) g/dL Albumin (3.5-5.0) g/dL - Progress Progress Note: 12/08/24 22:25 74 years old is evaluated in the ER for generalized weakness/fatigue and tiredness and shakiness. Patient report having similar symptoms with hypokalemia/hyponatremia. EKG is normal sinus rhythm with no acute ischemic changes and negative troponin. Normal white count, chemistries with sodium of 127, given fluid bolus and recheck is 130. Patient had a sodium of 131 in the recent past. Chest x-ray is negative for any acute cardiopulmonary findings. Room air oxygen saturation of 98%. Patient reported later that she has been drinking a lot of free water, she is advised to cut down her free water and outpatient follow-up. I do not think patient needs any more workup and is stable for discharge. Counseled pt/family regarding: lab results, diagnosis, need for follow-up, rad results Medical Desision Making - Independent Historian Additional History obtained from: Enlisted Advisor/EMT - Diagnostic Testing Diagnostic test were ordered, analyzed, and reviewed by me: Yes Radiological Interpretation: Interpreted by me, Reviewed by me - Risk of complications The pt has a mod risk of morbidity or mortality based on: Need for prescription drug management - Departure Departure Disposition: Home Clinical Impression: Hyponatremia, Generalized weakness Condition: Stable Critical Care Time: No Referrals: MALINI FRY [Primary Care Provider] - Follow up with PCP 1 day Instructions: Dehydration in adults - ED discharge instructions, Hypovolemia in adults Additional Instructions: Decreased free water intake. Follow-up with primary care for reevaluation. Return to ER for any worsening.
[2024-12-08 18:30] LABS: BASOPHIL % 0.2 % (0.1-1.2); Basophil (Absolute #) 0.02 x10^3/uL (0.01-0.08); Eosinophil % 0.4 % (0.7-5.8); Eosinophil (Absolute #) 0.04 x10^3/uL (0.04-0.36); Hematocrit 36.7 % (34.1-44.9); Hemoglobin 12.7 g/dL (11.2-15.7); IMMATURE GRAN # 0.03 x10^3u/L (0.001-0.031); IMMATURE GRAN % 0.3 % (0.001-0.429); Lymphocyte (Absolute #) 1.27 x10^3/uL (1.18-3.74); Mean Cell Volume 94.8 fL (79.4-94.8); Mean Corpuscular Hemoglobin 32.8 pg (25.6-32.2); Mean Corpuscular Hgb Concent. 34.6 g/dL (32.2-35.5); Mean Platelet Volume 8.6 fL (9.4-12.3); Monocyte (Absolute #) 0.49 x10^3/uL (0.24-0.86); Monocytes % 5.4 % (4.7-12.5); Neutrophil % 79.7 % (34.0-71.1); Platelet Count 193 x10^3/uL (182-369); Red Blood Count 3.87 x10^6/uL (3.93-5.22); Red Cell Distribution Width 12.5 % (11.7-14.4); White Blood Count 9.1 x10^3/uL (3.98-10.04)
[2024-12-08 18:50] LABS: ALBUMIN 4.2 g/dL (3.5-5.0); ANION GAP 15.8 MEQ/L (5-15); BILIRUBIN,TOTAL 0.7 mg/dL (0.2-1.3); Creatinine 1 0.73 mg/dL (0.52-1.04); EST GLOMERULAR FILTRATION RATE 85.2 ML/MIN; MAGNESIUM 1.7 mg/dL (1.6-2.3); Potassium 4.3 mmol/L (3.5-5.1)
[2024-12-08] MEDS: Sodium Chloride 0.9% 500 ML 500 ML IV ONE (20:12)
[2024-12-08] MEDS ORDERED: Sodium Chloride 0.9% 500 ML 500 ML IV ONE (20:12)
[2024-12-08 22:05] VITALS: RESP 20
[2024-12-08 22:12] LABS: ANION GAP 15.2 MEQ/L (5-15); Calcium 8.7 mg/dL (8.4-10.2); Creatinine 1 0.69 mg/dL (0.52-1.04); EST GLOMERULAR FILTRATION RATE 89.9 ML/MIN; Potassium 4.2 mmol/L (3.5-5.1)
[2024-12-08 23:11] VITALS: BP 169/88; PULSE 61; O2SAT 98
--- NOTE | 2024-12-09 08:40 | XRAY ---
Indication: Weakness. Shakiness. Comparison: February 12, 2024 Portable chest now demonstrates minimal left base subsegmental atelectasis/scarring. Remaining heart and lungs unremarkable. Bony thorax intact again with osteopenia and mild degenerative changes. No acute findings.
== END 2024-12-08 23:16 | disposition home or self-care (01) ==
LOC: ED 17:02
DX: E87.1 Hypo-osmolality and hyponatremia (principal); R53.1 Weakness; I10 Essential (primary) hypertension; E78.5 Hyperlipidemia, unspecified; E11.9 Type 2 diabetes mellitus without complications; Z79.85 Long-term (current) use of injectable non-insulin antidiabetic drugs; Z79.899 Other long term (current) drug therapy
CPT/HCPCS: 36415; 71045; 80048; 80053; 83735; 84484; 85025; 93005; 96360; 96361; 99284; 99285